=== PATIENT | female | born 1970 | race American Indian/Alaskan Native ===

== ENCOUNTER 2021-12-17 18:06 | Inpatient (IN) | payer MEDICARE ==
[2021-12-17] MEDS ORDERED: ONDANSETRON 4 MG/2 ML INJ IV ONE (18:48)
[2021-12-17] MEDS ORDERED: SODIUM CHLORIDE 0.9% 1000 ML 1,000 ML IV ONE ×3 (18:48→20:13)
[2021-12-17] MEDS ORDERED: fentaNYL 100 MCG/2 ML INJ IV ONE (18:48)
--- NOTE | 2021-12-17 18:53 | Emergency Department Report ---
HPI - General Chief Complaint: Abdominal Pain Time Seen by Provider: 12/17/21 18:40 - HPI HPI: Room 19 The patient is a 51-year-old female present with chief complaint of abdominal pain. Patient states she has had intermittent cramping abdominal pain for the past 4 days. Patient admits to intractable nausea vomiting since yesterday. Patient describes the pain as cramping and intermittent in nature. Patient states she has not had a bowel movement in 2 months. The patient is a resident at [facility] and a KUB performed at that facility today that was read as "probable partial small bowel obstruction. CT recommended." ED Past Medical Hx - Past Medical History Hx Hypertension: Yes Hx CVA: Yes (Residual right-sided weakness) Hx Congestive Heart Failure: Yes Hx Diabetes: Yes Hx Renal Disease: Yes Hx Seizures: Yes Hx Psychiatric Treatment: Yes (Anxiety) - Surgical History Past Surgical History?: No - Family History Family history: no significant - Social History Smoking Status: Never Smoker Substance Use Type: None ED Review of Systems ROS: Stated complaint: BOWEL BLOCKAGE Other details as noted in HPI Constitutional: no symptoms reported Eyes: denies: eye pain ENT: denies: throat pain Respiratory: no symptoms reported Cardiovascular: denies: chest pain Endocrine: no symptoms reported Gastrointestinal: abdominal pain, nausea, vomiting Genitourinary: denies: dysuria Musculoskeletal: denies: back pain Neurological: denies: headache Physical Exam - Physical Exam Vital Signs: Vital Signs 12/17/21 18:13 Pulse Rate 115 H Respiratory 20 Rate Blood Pressure 100/60 [Left] O2 Sat by Pulse 98 Oximetry Physical Exam: GENERAL: The patient is well-developed well-nourished female lying on stretcher not appearing to be in acute distress. [] HEENT: Normocephalic. Atraumatic. Extraocular motions are intact. Patient has moist mucous membranes. NECK: Supple. Trachea midline CHEST/LUNGS: Clear to auscultation. There is no respiratory distress noted. HEART/CARDIOVASCULAR: Regular. There is no tachycardia. There is no gallop rub or murmur. ABDOMEN: Abdomen is soft, with mild discomfort to palpation in the left upper quadrant left lower quadrant. There is no rebound or guarding. Patient has normal bowel sounds. There is no abdominal distention. SKIN: There is no rash. There is no edema. There is no diaphoresis. NEURO: The patient is awake, alert, and oriented. The patient is cooperative. The patient has residual right hemiparesis from previous CVA. The patient has normal speech. GCS 15 MUSCULOSKELETAL: There is no evidence of acute injury. ED Course Vital Signs 12/17/21 18:13 Pulse Rate 115 H Respiratory 20 Rate Blood Pressure 100/60 [Left] O2 Sat by Pulse 98 Oximetry - Consultations Consultation #1: 12/17/21 20:03 Surgery paged 12/17/21 20:14 Case discussed with surgeon Dr. Robertson-recommends initiating normal saline at 100 ml/hr after initial bolus. Will consult ED Medical Decision Making - Lab Data Result diagrams: 12/17/21 18:55 12/17/21 18:55 - Radiology Data Radiology results: report reviewed (CT abdomen pelvis), image reviewed (CT abdomen pelvis) [facility] [address] [place] [address] Cat Scan Report Signed Patient: MANOJ KHOURY MR#: [id number] : 1970 Acct:[id number] Age/Sex: 51 / F ADM Date: 12/17/21 Loc: ED Attending Dr: Ordering Physician: RAVI BERG MD Date of Service: 12/17/21 Procedure(s): CT abdomen pelvis wo con Accession Number(s): [id number] cc: RAVI BERG MD CT ABDOMEN AND PELVIS WITHOUT CONTRAST INDICATION / CLINICAL INFORMATION: Left abd pain,n/v. KUB concerning for pSBO. TECHNIQUE: Axial CT images were obtained through the abdomen and pelvis without IV contrast. All CT scans at this location are performed using CT dose reduction for ALARA by means of automated exposure control. COMPARISON: None available. FINDINGS: LOWER CHEST: There is dependent bilateral atelectasis. Heart size is normal with a small pericardial effusion. No other acute findings. LIVER: No significant abnormality. GALLBLADDER: There is cholelithiasis without evidence of acute cholecystitis. BILE DUCTS: No significant abnormality. PANCREAS: No significant abnormality. SPLEEN: No significant abnormality. ADRENALS: No significant abnormality. RIGHT KIDNEY/URETER: No significant abnormality. LEFT KIDNEY/URETER: No significant abnormality. STOMACH/SMALL BOWEL: The stomach is markedly distended by air and fluid. There is moderate small bowel dilatation with a transition point seen just the right of midline along the lower abdomen. COLON: No significant abnormality. APPENDIX: Not seen. PERITONEUM: No free fluid. No free air. No fluid collection. LYMPH NODES: No significant adenopathy. VASCULATURE: There is mild generalized atherosclerosis. No other significant abnormality. URINARY BLADDER: Moderate bladder wall thickening is likely due to underdistention. No other significant abnormality. REPRODUCTIVE ORGANS: No significant abnormality. ADDITIONAL FINDINGS: None. BONES: No acute findings. The bones are demineralized with moderate degenerative changes of the spine. There is an old fracture of the intertrochanteric region of the left femur. IMPRESSION: 1. Evidence of a small bowel obstruction without other acute findings. 2. Additional findings as above. Signer Name: Jon Boles MD Signed: 12/17/2021 7:43 PM Workstation Name: [id number] Transcribed By: ERIK Dictated By: Jon Boles MD Electronically Authenticated By: Jon Boles MD Signed Date/Time: 12/17/211942 DD/ 37 TD/TT: - Differential Diagnosis Partial small bowel obstruction, gastritis, UTI, renal colic, ileus Critical care attestation.: If time is entered above; I have spent that time in minutes in the direct care of this critically ill patient, excluding procedure time. ED Disposition Clinical Impression: Small bowel obstruction, Acute abdominal pain Disposition: ADMITTED INPATIENT Is pt being admited?: Yes Does the pt Need Aspirin: No Condition: Fair Instructions: Abdominal Pain (ED) Time of Disposition: 21:43 (Care transferred to hospitalist (Dr. Isabel))
[2021-12-17 19:11] LABS: Basophils % (Auto) 0.2 % (0.0-1.8); Eosinophils % (Auto) 0.3 % (0.0-4.3); Hematocrit 35.4 % (30.3-42.9); Hemoglobin 11.6 gm/dl (10.1-14.3); Lymphocytes # (Auto) 0.9 K/mm3 (1.2-5.4); Lymphocytes % (Auto) 9.1 % (13.4-35.0); Mean Corpuscular HGB Conc 33 % (30-34); Mean Corpuscular Volume 72 fl (79-97); Monocytes # (Auto) 1.2 K/mm3 (0.0-0.8); Platelet Count 317 K/mm3 (140-440); Red Blood Count 4.92 M/mm3 (3.65-5.03); Red Cell Distribution Width 16.6 % (13.2-15.2)
[2021-12-17 19:31] LABS: Albumin 3.4 g/dL (3.9-5); Calcium 8.2 mg/dL (8.4-10.2)
--- NOTE | 2021-12-17 19:47 | Cat Scan Report ---
CT ABDOMEN AND PELVIS WITHOUT CONTRAST INDICATION / CLINICAL INFORMATION: Left abd pain,n/v. KUB concerning for pSBO. TECHNIQUE: Axial CT images were obtained through the abdomen and pelvis without IV contrast. All CT scans at [facility] are performed using CT dose reduction for ALARA by means of automated exposure control. COMPARISON: None available. FINDINGS: LOWER CHEST: There is dependent bilateral atelectasis. Heart size is normal with a small pericardial effusion. No other acute findings. LIVER: No significant abnormality. GALLBLADDER: There is cholelithiasis without evidence of acute cholecystitis. BILE DUCTS: No significant abnormality. PANCREAS: No significant abnormality. SPLEEN: No significant abnormality. ADRENALS: No significant abnormality. RIGHT KIDNEY/URETER: No significant abnormality. LEFT KIDNEY/URETER: No significant abnormality. STOMACH/SMALL BOWEL: The stomach is markedly distended by air and fluid. There is moderate small bhupinder l dilatation with a transition point seen just the right of midline along the lower abdomen. COLON: No significant abnormality. APPENDIX: Not seen. PERITONEUM: No free fluid. No free air. No fluid collection. LYMPH NODES: No significant adenopathy. VASCULATURE: There is mild generalized atherosclerosis. No other significant abnormality. URINARY BLADDER: Moderate bladder wall thickening is likely due to underdistention. No other signific ant abnormality. REPRODUCTIVE ORGANS: No significant abnormality. ADDITIONAL FINDINGS: None. BONES: No acute findings. The bones are demineralized with moderate degenerative changes of the spine . There is an old fracture of the intertrochanteric region of the left femur. IMPRESSION: 1. Evidence of a small bowel obstruction without other acute findings. 2. Additional findings as above. Signer Name: Jon Boles MD Signed: 12/17/2021 7:43 PM Workstation Name: [id number]
[2021-12-17] MEDS ORDERED: MORPHINE 2 MG/1 ML INJ IV PRN ×2 (21:41→23:23)
[2021-12-17] MEDS ORDERED: ACETAMINOPHEN 325 MG TAB PO PRN ×2 (21:41→23:23)
[2021-12-17] MEDS ORDERED: ONDANSETRON 4 MG/2 ML INJ IV PRN ×2 (21:41→23:23)
--- NOTE | 2021-12-17 21:57 | XRay Report ---
ABDOMEN 1 VIEW 12/17/2021 8:46 PM INDICATION / CLINICAL INFORMATION: NG TUBE PLACEMENT. COMPARISON: CT performed earlier same day FINDINGS: TUBES / LINES: Esophogastric tube side-port is in the stomach. BOWEL GAS PATTERN: Multiple dilated loops of small bowel in the upper abdomen. FREE AIR / EXTRALUMINAL GAS: None. ADDITIONAL FINDINGS: No significant additional findings. IMPRESSION: 1. Esophagogastric tube in expected position. 2. Small bowel obstruction. Signer Name: Chi Esqueda MD Signed: 12/17/2021 9:52 PM Workstation Name: [email or web address]
[2021-12-17 22:45] LABS: Color,Urine Yellow (Yellow)
[2021-12-17 22:46] LABS: Bacteria,Urine 4+ /HPF (Negative); Mucus,Urine FEW /HPF
[2021-12-17 22:52] LABS: WBC,Urine < 1.0 /HPF (0.0-6.0)
[2021-12-17] MEDS ORDERED: MORPHINE 4 MG/1 ML INJ IV PRN (23:23)
[2021-12-17] MEDS ORDERED: ALBUTEROL 2.5 MG/3 ML NEBU IH PRN (23:23)
[2021-12-17] MEDS ORDERED: DEXTROSE 50% IN WATER (25GM) 50 ML SYRINGE IV PRN (23:24)
--- NOTE | 2021-12-17 23:29 | History and Physical Report ---
History of Present Illness Date of examination: 12/17/21 Date of admission: 12/17/21 21:41 Chief complaint: Abdominal pain History of present illness: 51-year-old female with history of CVA, diabetes, CHF, hypertension, seizure was brought to the emergency room because of abdominal pain. Patient states she has had intermittent cramping abdominal pain for the past 4 days. Patient admits to intractable nausea vomiting since yesterday. Patient describes the pain as cramping and intermittent in nature. Patient states she has not had a bowel movement in 2 months. The patient is a resident at [facility] and a KUB performed at that facility today that was read as "probable partial small bowel obstruction. CT recommended." In the emergency room initial CT scan of the abdomen shows evidence of a small bowel obstruction without other acute finding. Subsequently Case was discussed with on-call surgeon Dr. Jamison. we will going to admit the patient surgery will see the patient in the morning Past History Past Medical History: diabetes, heart failure, hypertension, renal failure, seizures, stroke, other (Anxiety) Past Surgical History: No surgical history Social history: no significant social history Family history: no significant family history Medications and Allergies Allergies Allergy/AdvReac Type Severity Reaction Status Date / Time clopidogrel [From Plavix] Allergy Unknown Verified 12/17/21 19:47 lisinopril Allergy Unknown Verified 12/17/21 19:47 metformin Allergy Unknown Verified 12/17/21 19:47 Active Meds: Active Medications Acetaminophen (Acetaminophen 325 Mg Tab) 650 mg PO Q4H PRN PRN Reason: Pain MILD(1-3)/Fever >100.5/HOLMAN Sodium Chloride (Nacl 0.9% 1000 Ml) 1,000 mls @ 125 mls/hr IV ONCE ONE Stop: 12/18/21 02:47 Last Admin: 12/17/21 22:07 Dose: 125 mls/hr Sodium Chloride (Nacl 0.9% 1000 Ml) 1,000 mls @ 100 mls/hr IV ONCE ONE Stop: 12/18/21 06:12 Morphine Sulfate (Morphine 2 Mg/1 Ml Inj) 2 mg IV Q4H PRN PRN Reason: Pain, Moderate (4-6) Ondansetron HCl (Ondansetron 4 Mg/2 Ml Inj) 4 mg IV Q8H PRN PRN Reason: Nausea And Vomiting Sodium Chloride (Sodium Chloride 0.9% 10 Ml Flush Syringe) 10 ml IV BID SHANNON Sodium Chloride (Sodium Chloride 0.9% 10 Ml Flush Syringe) 10 ml IV PRN PRN PRN Reason: LINE FLUSH Review of Systems All systems: negative Gastrointestinal: abdominal pain, nausea, vomiting Exam - Constitutional Vitals: Temp Pulse Resp BP Pulse Ox 98.3 F 131 H 23 99/68 88 12/17/21 19:37 12/17/21 23:00 12/17/21 23:00 12/17/21 23:00 12/17/21 23:00 General appearance: Present: no acute distress, well-nourished - EENT Eyes: Present: PERRL ENT: hearing intact, clear oral mucosa - Neck Neck: Present: supple, normal ROM - Respiratory Respiratory effort: normal Respiratory: bilateral: CTA - Cardiovascular Heart Sounds: Present: S1 & S2. Absent: rub, click - Extremities Extremities: pulses symmetrical, No edema Peripheral Pulses: within normal limits - Abdominal General gastrointestinal: Present: soft, non-tender, non-distended, normal bowel sounds Female genitourinary: Present: normal - Integumentary Integumentary: Present: clear, warm, dry - Musculoskeletal Musculoskeletal: gait normal, strength equal bilaterally - Psychiatric Psychiatric: appropriate mood/affect, intact judgment & insight - Neurologic Neurologic: CNII-XII intact, moves all extremities Results - Labs CBC & Chem 7: 12/17/21 18:55 12/17/21 18:55 Labs: Laboratory Last Values WBC 9.7 K/mm3 (4.5-11.0) 12/17/21 18:55 RBC 4.92 M/mm3 (3.65-5.03) 12/17/21 18:55 Hgb 11.6 gm/dl (10.1-14.3) 12/17/21 18:55 Hct 35.4 % (30.3-42.9) 12/17/21 18:55 MCV 72 fl (79-97) L 12/17/21 18:55 MCH 24 pg (28-32) L 12/17/21 18:55 MCHC 33 % (30-34) 12/17/21 18:55 RDW 16.6 % (13.2-15.2) H 12/17/21 18:55 Plt Count 317 K/mm3 (140-440) 12/17/21 18:55 Lymph % (Auto) 9.1 % (13.4-35.0) L 12/17/21 18:55 Jenkins % (Auto) 12.0 % (0.0-7.3) H 12/17/21 18:55 Eos % (Auto) 0.3 % (0.0-4.3) 12/17/21 18:55 Baso % (Auto) 0.2 % (0.0-1.8) 12/17/21 18:55 Lymph # (Auto) 0.9 K/mm3 (1.2-5.4) L 12/17/21 18:55 Jenkins # (Auto) 1.2 K/mm3 (0.0-0.8) H 12/17/21 18:55 Eos # (Auto) 0.0 K/mm3 (0.0-0.4) 12/17/21 18:55 Baso # (Auto) 0.0 K/mm3 (0.0-0.1) 12/17/21 18:55 Seg Neutrophils % 78.4 % (40.0-70.0) H 12/17/21 18:55 Seg Neutrophils # 7.6 K/mm3 (1.8-7.7) 12/17/21 18:55 VBG pH 7.309 (7.320-7.420) L 12/17/21 18:55 Sodium 141 mmol/L (137-145) 12/17/21 18:55 Potassium 3.6 mmol/L (3.6-5.0) 12/17/21 18:55 Chloride 99.4 mmol/L (98-107) 12/17/21 18:55 Carbon Dioxide 24 mmol/L (22-30) 12/17/21 18:55 Anion Gap 21 mmol/L 12/17/21 18:55 BUN 37 mg/dL (7-17) H 12/17/21 18:55 Creatinine 1.6 mg/dL (0.6-1.2) H 12/17/21 18:55 Estimated GFR 34 ml/min 12/17/21 18:55 BUN/Creatinine Ratio 23 % 12/17/21 18:55 Glucose 113 mg/dL (65-100) H 12/17/21 18:55 Calcium 8.2 mg/dL (8.4-10.2) L 12/17/21 18:55 Total Bilirubin 0.90 mg/dL (0.1-1.2) 12/17/21 18:55 AST 18 units/L (5-40) 12/17/21 18:55 ALT 12 units/L (7-56) 12/17/21 18:55 Alkaline Phosphatase 124 units/L (35-129) 12/17/21 18:55 Total Protein 6.2 g/dL (6.3-8.2) L 12/17/21 18:55 Albumin 3.4 g/dL (3.9-5) L 12/17/21 18:55 Albumin/Globulin Ratio 1.2 % 12/17/21 18:55 Lipase 7 units/L (13-60) L 12/17/21 18:55 Urine Color Yellow (Yellow) 12/17/21 22:12 Urine Turbidity Cloudy (Clear) 12/17/21 22:12 Specific [place] (Man) 1.030 (1.003-1.030) 12/17/21 22:12 Ur Protein (Man) 2+ mg/dL (Negative) 12/17/21 22:12 Ur Ketones (Man) Negative (Negative) 12/17/21 22:12 Ur Nitrite (Man) Negative (Negative) 12/17/21 22:12 Urine Bilirubin (Man) Negative (Negative) 12/17/21 22:12 Leukocyte Esterase (Man) Small (Negative) 12/17/21 22:12 Urine WBC (Auto) < 1.0 /HPF (0.0-6.0) 12/17/21 22:12 Urine RBC (Auto) 71.0 /HPF (0.0-6.0) 12/17/21 22:12 U Epithel Cells (Auto) 1.0 /HPF (0-13.0) 12/17/21 22:12 Urine Bacteria (Auto) 4+ /HPF (Negative) 12/17/21 22:12 Urine RBC (Manual) 3+ (Negative) 12/17/21 22:12 Urine WBC Clumps 3+ /HPF 12/17/21 22:12 Urine Mucus Few /HPF 12/17/21 22:12 Urine Yeast (Budding) 3+ /HPF 12/17/21 22:12 - Imaging and Cardiology CT scan - abdomen: report reviewed Assessment and Plan VTE prophylaxis?: Mechanical Plan of care discussed with patient/family: Yes - Patient Problems (1) Small bowel obstruction Current Visit: Yes Status: Acute Plan to address problem: Admit the patient to the medical floor. NPO. NG tube to low intermittent suction. Normal saline at the rate of 100 cc/h. Pepcid 20 mg IV every 12 hours. Morphine 2 mg IV every 6 hours as needed. Surgery evaluation. Recheck CBC BMP in the morning (2) Diabetes Current Visit: Yes Status: Acute Plan to address problem: Accu-Chek every 6 hours with Humalog moderate dose coverage. Diabetic education (3) CVA (cerebral vascular accident) Current Visit: Yes Status: Acute Plan to address problem: Stable. We continue the home medication. Outpatient follow-up with neurology (4) CHF (congestive heart failure) Current Visit: Yes Status: Acute Plan to address problem: Is stable. We continue the home cardiac medication. Outpatient follow-up with cardiology (5) Hypertension Current Visit: Yes Status: Acute Plan to address problem: Hydralazine 10 mg IV every 6 hours as needed. We continue the home medication (6) Seizure Current Visit: Yes Status: Acute Plan to address problem: Stable. Patient is on seizure precaution. We continue home seizure medication (7) Acute abdominal pain Current Visit: Yes Status: Acute Plan to address problem: NPO. NG tube to low intermittent suction. Normal saline at the rate of 100 cc/h. Pepcid 20 mg IV every 12 hours. Morphine 2 mg IV every 6 hours as needed. Surgery evaluation. Recheck CBC BMP in the morning (8) DVT prophylaxis Current Visit: Yes Status: Acute Plan to address problem: SCD for DVT prophylaxis. Pepcid 20 mg IV every 12 hours for GI prophylaxis. Patient is a full code
[2021-12-17] MEDS ORDERED: SODIUM CHLORIDE 0.9% 1000 ML 1,000 ML IV SCH (23:30)
[2021-12-18] MEDS: INSULIN LISPRO 100 UNIT/ML SUB-Q SCH ×4 (02:38→23:43)
[2021-12-18 10:02] LABS: Basophils % (Auto) 0.3 % (0.0-1.8); Eosinophils % (Auto) 0.1 % (0.0-4.3); Hematocrit 33.9 % (30.3-42.9); Hemoglobin 10.6 gm/dl (10.1-14.3); Lymphocytes # (Auto) 0.8 K/mm3 (1.2-5.4); Lymphocytes % (Auto) 6.8 % (13.4-35.0); Mean Corpuscular HGB Conc 31 % (30-34); Mean Corpuscular Volume 72 fl (79-97); Monocytes # (Auto) 1.4 K/mm3 (0.0-0.8); Monocytes % (Auto) 12.3 % (0.0-7.3); Platelet Count 288 K/mm3 (140-440); Red Blood Count 4.69 M/mm3 (3.65-5.03); Red Cell Distribution Width 16.4 % (13.2-15.2)
--- NOTE | 2021-12-18 11:19 | Consultation ---
History of Present Illness Consult date: 12/18/21 - History of present illness History of present illness: 51-year-old female with history of CVA, diabetes, CHF, hypertension, seizure was brought to the emergency room because of abdominal pain. Patient states she has had intermittent cramping abdominal pain for the past 4 days. Patient admits to intractable nausea vomiting since yesterday. Patient describes the pain as cramping and intermittent in nature. Patient states she has not had a bowel movement in 2 months. The patient is a resident at [facility] and a KUB performed at that facility today that was read as "probable partial small bowel obstruction. CT recommended." In the emergency room initial CT scan of the abdomen shows evidence of a small bowel obstruction without other acute finding. Past History Past Medical History: diabetes, heart failure, hypertension, renal failure, seizures, stroke, other (Anxiety) Past Surgical History: No surgical history Social history: no significant social history Family history: no significant family history Medications and Allergies Allergies Allergy/AdvReac Type Severity Reaction Status Date / Time clopidogrel [From Plavix] Allergy Unknown Verified 12/17/21 19:47 lisinopril Allergy Unknown Verified 12/17/21 19:47 metformin Allergy Unknown Verified 12/17/21 19:47 Active Meds: Active Medications Acetaminophen (Acetaminophen 325 Mg Tab) 650 mg PO Q4H PRN PRN Reason: Pain MILD(1-3)/Fever >100.5/HOLMAN Albuterol (Albuterol 2.5 Mg/3 Ml Nebu) 2.5 mg IH Q4HRT PRN PRN Reason: Shortness Of Breath Dextrose (Dextrose 50% In Water (25gm) 50 Ml Syringe) 50 ml IV Q30MIN PRN; Protocol PRN Reason: Hypoglycemia Famotidine (Famotidine 20 Mg/2 Ml Inj) 20 mg IV BID SHANNON Sodium Chloride (Nacl 0.9% 1000 Ml) 1,000 mls @ 100 mls/hr IV DIRECT SHANNON Insulin Human Lispro (Insulin Lispro 100 Unit/Ml) 0 unit SUB-Q Q6HR SHANNON; Protocol Last Admin: 12/18/21 02:38 Dose: Not Given Morphine Sulfate (Morphine 2 Mg/1 Ml Inj) 2 mg IV Q4H PRN PRN Reason: Pain, Moderate (4-6) Morphine Sulfate (Morphine 4 Mg/1 Ml Inj) 4 mg IV Q4H PRN PRN Reason: Pain , Severe (7-10) Ondansetron HCl (Ondansetron 4 Mg/2 Ml Inj) 4 mg IV Q8H PRN PRN Reason: Nausea And Vomiting Sodium Chloride (Sodium Chloride 0.9% 10 Ml Flush Syringe) 10 ml IV BID SHANNON Sodium Chloride (Sodium Chloride 0.9% 10 Ml Flush Syringe) 10 ml IV PRN PRN PRN Reason: LINE FLUSH Last Admin: 12/18/21 02:51 Dose: 10 ml Exam Vital Signs Pulse Resp BP Pulse Ox 115 H 20 100/60 98 12/17/21 18:13 12/17/21 18:13 12/17/21 18:13 12/17/21 18:13 Results - Labs 12/18/21 08:51 12/18/21 08:51 Abnormal lab results 12/17/21 12/17/21 12/17/21 Range/Units 18:55 18:55 18:55 WBC (4.5-11.0) K/mm3 MCV 72 L (79-97) fl MCH 24 L (28-32) pg RDW 16.6 H (13.2-15.2) % Lymph % (Auto) 9.1 L (13.4-35.0) % Coos % (Auto) 12.0 H (0.0-7.3) % Lymph # (Auto) 0.9 L (1.2-5.4) K/mm3 Coos # (Auto) 1.2 H (0.0-0.8) K/mm3 Seg Neutrophils % 78.4 H (40.0-70.0) % Seg Neutrophils # (1.8-7.7) K/mm3 VBG pH 7.309 L (7.320-7.420) BUN 37 H (7-17) mg/dL Creatinine 1.6 H (0.6-1.2) mg/dL Glucose 113 H (65-100) mg/dL POC Glucose (70-105) mg/dL Calcium 8.2 L (8.4-10.2) mg/dL Total Protein 6.2 L (6.3-8.2) g/dL Albumin 3.4 L (3.9-5) g/dL Lipase 7 L (13-60) units/L 12/18/21 12/18/2112/18/22 Range/Units 02:34 08:51 08:51 WBC 11.1 H (4.5-11.0) K/mm3 MCV 72 L (79-97) fl MCH 23 L (28-32) pg RDW 16.4 H (13.2-15.2) % Lymph % (Auto) 6.8 L (13.4-35.0) % Coos % (Auto) 12.3 H (0.0-7.3) % Lymph # (Auto) 0.8 L (1.2-5.4) K/mm3 Coos # (Auto) 1.4 H (0.0-0.8) K/mm3 Seg Neutrophils % 80.5 H (40.0-70.0) % Seg Neutrophils # 8.9 H (1.8-7.7) K/mm3 VBG pH (7.320-7.420) BUN 42 H (7-17) mg/dL Creatinine 1.5 H (0.6-1.2) mg/dL Glucose 101 H (65-100) mg/dL POC Glucose 131 H (70-105) mg/dL Calcium 8.0 L (8.4-10.2) mg/dL Total Protein (6.3-8.2) g/dL Albumin (3.9-5) g/dL Lipase (13-60) units/L Diabetes panel 12/17/21 12/18/21 Range/Units 18:55 08:51 Sodium 141 145 (137-145) mmol/L Potassium 3.6 3.8 (3.6-5.0) mmol/L Chloride 99.4 100.7 (98-107) mmol/L Carbon Dioxide 24 25 (22-30) mmol/L BUN 37 H 42 H (7-17) mg/dL Creatinine 1.6 H 1.5 H (0.6-1.2) mg/dL Glucose 113 H 101 H (65-100) mg/dL Calcium 8.2 L 8.0 L (8.4-10.2) mg/dL AST 18 (5-40) units/L ALT 12 (7-56) units/L Alkaline Phosphatase 124 (35-129) units/L Total Protein 6.2 L (6.3-8.2) g/dL Albumin 3.4 L (3.9-5) g/dL Calcium panel 12/17/21 12/18/21 Range/Units 18:55 08:51 Calcium 8.2 L 8.0 L (8.4-10.2) mg/dL Albumin 3.4 L (3.9-5) g/dL Pituitary panel 12/17/21 12/18/21 Range/Units 18:55 08:51 Sodium 141 145 (137-145) mmol/L Potassium 3.6 3.8 (3.6-5.0) mmol/L Chloride 99.4 100.7 (98-107) mmol/L Carbon Dioxide 24 25 (22-30) mmol/L BUN 37 H 42 H (7-17) mg/dL Creatinine 1.6 H 1.5 H (0.6-1.2) mg/dL Glucose 113 H 101 H (65-100) mg/dL Calcium 8.2 L 8.0 L (8.4-10.2) mg/dL Adrenal panel 12/17/21 12/18/21 Range/Units 18:55 08:51 Sodium 141 145 (137-145) mmol/L Potassium 3.6 3.8 (3.6-5.0) mmol/L Chloride 99.4 100.7 (98-107) mmol/L Carbon Dioxide 24 25 (22-30) mmol/L BUN 37 H 42 H (7-17) mg/dL Creatinine 1.6 H 1.5 H (0.6-1.2) mg/dL Glucose 113 H 101 H (65-100) mg/dL Calcium 8.2 L 8.0 L (8.4-10.2) mg/dL Total Bilirubin 0.90 (0.1-1.2) mg/dL AST 18 (5-40) units/L ALT 12 (7-56) units/L Alkaline Phosphatase 124 (35-129) units/L Total Protein 6.2 L (6.3-8.2) g/dL Albumin 3.4 L (3.9-5) g/dL Assessment and Plan 51-year-old female with history of CVA, diabetes, CHF, hypertension, seizure was brought to the emergency room because of abdominal pain. Patient states she has had intermittent cramping abdominal pain for the past 4 days. Patient admits to intractable nausea vomiting since yesterday. Patient describes the pain as cramping and intermittent in nature. Patient states she has not had a bowel movement in 2 months. The patient is a resident at [facility] and a KUB performed at that facility today that was read as "probable partial small bowel obstruction. CT recommended." In the emergency room initial CT scan of the abdomen shows evidence of a small bowel obstruction without other acute finding. Cont ng suctin, ivf and serial exams.
[2021-12-18] MEDS: FAMOTIDINE 20 MG/2 ML INJ IV SCH ×2 (12:05→23:07)
--- NOTE | 2021-12-18 19:26 | Progress Note ---
Assessment and Plan Assessment and plan: #Small bowel obstruction Visualized on CT abdomen and pelvis without acute findings. Continue n.p.o. status with NG tube + LIWS. Continue serial KUBs. General surgery consulted; appreciate recs. Continue antiemetics and analgesics as needed. #Non-insulin dependent type II diabetes mellitus - hemoglobin A1c: Unknown - home regimen: Unknown - current regimen: Moderate SSI - blood glucose goal 140-180 while inpatient - continue to monitor #Hypertension #Congestive heart failurestable - home medications: Unknown - current medications: Currently normotensive. Can consider IV Lopressor if patient requires blood pressure control while remaining n.p.o. - SBP goal <160 and DBP goal <90 while inpatient - continue to monitor #History of multiple acute ischemic CVA We will restart aspirin 81 mg daily and atorvastatin 40 mg daily once patient can tolerate p.o. intake. #Seizure history Continue seizure precautions. No current seizure medication in the chart. Starting IV Keppra 500 mg twice daily #Mild protein caloric malnutrition Albumin 3.4 Holding on starting dietary supplementation until patient can tolerate p.o. intake. #Obesity #Weight loss counseling #Exercise counseling - BMI 30.6 - Counseled patient on the importance of weight loss, incorporating exercise, and dietary changes (lean meats, fresh fruits and vegetables, and water intake). Patient expresses understanding. - Time: +15 min #Advanced care planning -Disease education conducted, care plan discussed, diagnoses discussed, prognosis discussed, and patient acknowledges understanding with care plan -Time: +30 min Disposition Plan: Continue medical management Total Time Spent with Patient (Minutes): 45 minutes History Interval history: No acute events overnight. Hospitalist Physical - Constitutional Vitals: Temp Pulse Resp BP Pulse Ox 98.2 F 44 L 18 117/78 85 12/18/21 16:41 12/18/21 16:41 12/18/21 16:41 12/18/21 16:41 12/18/21 16:41 General appearance: Present: no acute distress, well-nourished, obese - EENT Eyes: Present: PERRL, EOM intact ENT: hearing intact, clear oral mucosa, dentition normal, other (NG tube in place draining greenish fluid) - Neck Neck: Present: supple, normal ROM - Respiratory Respiratory effort: normal Respiratory: bilateral: CTA - Cardiovascular Rhythm: regular Heart Sounds: Present: S1 & S2 - Extremities Extremities: no ischemia, pulses intact, pulses symmetrical, No edema, normal temperature, normal color Peripheral Pulses: within normal limits - Abdominal General gastrointestinal: soft, tender, non-distended, normal bowel sounds Localized gastrointestinal: tender: diffuse - Integumentary Integumentary: Present: clear, warm, dry - Psychiatric Psychiatric: other (Unable to fully assess given patient's significant stroke history) - Neurologic Neurologic: focal deficits (Right-sided weakness) - Allied Health Allied health notes reviewed: nursing Results - Labs CBC & Chem 7: 12/18/21 08:51 12/18/21 08:51 Labs: Laboratory Last Values WBC 11.1 K/mm3 (4.5-11.0) H 12/18/21 08:51 RBC 4.69 M/mm3 (3.65-5.03) 12/18/21 08:51 Hgb 10.6 gm/dl (10.1-14.3) 12/18/21 08:51 Hct 33.9 % (30.3-42.9) 12/18/21 08:51 MCV 72 fl (79-97) L 12/18/21 08:51 MCH 23 pg (28-32) L 12/18/21 08:51 MCHC 31 % (30-34) 12/18/21 08:51 RDW 16.4 % (13.2-15.2) H 12/18/21 08:51 Plt Count 288 K/mm3 (140-440) 12/18/21 08:51 Lymph % (Auto) 6.8 % (13.4-35.0) L 12/18/21 08:51 [place] % (Auto) 12.3 % (0.0-7.3) H 12/18/21 08:51 Eos % (Auto) 0.1 % (0.0-4.3) 12/18/21 08:51 Baso % (Auto) 0.3 % (0.0-1.8) 12/18/21 08:51 Lymph # (Auto) 0.8 K/mm3 (1.2-5.4) L 12/18/21 08:51 [place] # (Auto) 1.4 K/mm3 (0.0-0.8) H 12/18/21 08:51 Eos # (Auto) 0.0 K/mm3 (0.0-0.4) 12/18/21 08:51 Baso # (Auto) 0.0 K/mm3 (0.0-0.1) 12/18/21 08:51 Seg Neutrophils % 80.5 % (40.0-70.0) H 12/18/21 08:51 Seg Neutrophils # 8.9 K/mm3 (1.8-7.7) H 12/18/21 08:51 VBG pH 7.309 (7.320-7.420) L 12/17/21 18:55 Sodium 145 mmol/L (137-145) 12/18/21 08:51 Potassium 3.8 mmol/L (3.6-5.0) 12/18/21 08:51 Chloride 100.7 mmol/L (98-107) 12/18/21 08:51 Carbon Dioxide 25 mmol/L (22-30) 12/18/21 08:51 Anion Gap 23 mmol/L 12/18/21 08:51 BUN 42 mg/dL (7-17) H 12/18/21 08:51 Creatinine 1.5 mg/dL (0.6-1.2) H 12/18/21 08:51 Estimated GFR 44 ml/min 12/18/21 08:51 BUN/Creatinine Ratio 28 % 12/18/21 08:51 Glucose 101 mg/dL (65-100) H 12/18/21 08:51 POC Glucose 106 mg/dL (70-105) H 12/18/21 11:18 Calcium 8.0 mg/dL (8.4-10.2) L 12/18/21 08:51 Total Bilirubin 0.90 mg/dL (0.1-1.2) 12/17/21 18:55 AST 18 units/L (5-40) 12/17/21 18:55 ALT 12 units/L (7-56) 12/17/21 18:55 Alkaline Phosphatase 124 units/L (35-129) 12/17/21 18:55 Total Protein 6.2 g/dL (6.3-8.2) L 12/17/21 18:55 Albumin 3.4 g/dL (3.9-5) L 12/17/21 18:55 Albumin/Globulin Ratio 1.2 % 12/17/21 18:55 Lipase 7 units/L (13-60) L 12/17/21 18:55 Urine Color Yellow (Yellow) 12/17/21 22:12 Urine Turbidity Cloudy (Clear) 12/17/21 22:12 Specific [place] (Man) 1.030 (1.003-1.030) 12/17/21 22:12 Ur Protein (Man) 2+ mg/dL (Negative) 12/17/21 22:12 Ur Ketones (Man) Negative (Negative) 12/17/21 22:12 Ur Nitrite (Man) Negative (Negative) 12/17/21 22:12 Urine Bilirubin (Man) Negative (Negative) 12/17/21 22:12 Leukocyte Esterase (Man) Small (Negative) 12/17/21 22:12 Urine WBC (Auto) < 1.0 /HPF (0.0-6.0) 12/17/21 22:12 Urine RBC (Auto) 71.0 /HPF (0.0-6.0) 12/17/21 22:12 U Epithel Cells (Auto) 1.0 /HPF (0-13.0) 12/17/21 22:12 Urine Bacteria (Auto) 4+ /HPF (Negative) 12/17/21 22:12 Urine RBC (Manual) 3+ (Negative) 12/17/21 22:12 Urine WBC Clumps 3+ /HPF 12/17/21 22:12 Urine Mucus Few /HPF 12/17/21 22:12 Urine Yeast (Budding) 3+ /HPF 12/17/21 22:12 Active Medications - Current Medications Current Medications: Generic Name Dose Route Start Last Admin Trade Name Freq PRN Reason Stop Dose Admin Acetaminophen 650 mg 12/17/21 23:23 Acetaminophen 325 Mg Tab PO Q4H PRN Pain MILD(1-3)/Fever >100.5/HOLMAN Albuterol 2.5 mg 12/17/21 23:23 Albuterol 2.5 Mg/3 Ml Nebu IH Q4HRT PRN Shortness Of Breath Dextrose 50 ml 12/17/21 23:24 Dextrose 50% In Water (25gm) 50 Ml Syringe IV Q30MIN PRN Hypoglycemia Protocol Famotidine 20 mg 12/18/21 10:00 12/18/21 12:05 Famotidine 20 Mg/2 Ml Inj IV 20 mg BID SHANNON Administration Insulin Human Lispro 0 unit 12/18/21 00:00 12/18/21 18:48 Insulin Lispro 100 Unit/Ml SUB-Q Not Given Q6HR [facility] Protocol Morphine Sulfate 2 mg 12/17/21 23:23 Morphine 2 Mg/1 Ml Inj IV Q4H PRN Pain, Moderate (4-6) Morphine Sulfate 4 mg 12/17/21 23:23 Morphine 4 Mg/1 Ml Inj IV Q4H PRN Pain , Severe (7-10) Ondansetron HCl 4 mg 12/17/21 23:23 Ondansetron 4 Mg/2 Ml Inj IV Q8H PRN Nausea And Vomiting Sodium Chloride 10 ml 12/18/21 10:00 12/18/21 12:05 Sodium Chloride 0.9% 10 Ml Flush Syringe IV 10 ml BID SHANNON Administration Sodium Chloride 10 ml 12/17/21 23:23 12/18/21 02:51 Sodium Chloride 0.9% 10 Ml Flush Syringe IV 10 ml PRN PRN Administration LINE FLUSH Nutrition/Malnutrition Assess - Dietary Evaluation Nutrition/Malnutrition Findings: Nutrition Notes Start: 12/18/21 12:33 Freq: Status: Active Protocol: Document 12/18/21 12:33 JOS (Rec: 12/18/21 12:40 [facility] [id number]) Nutrition Notes Need for Assessment generated from: MD Order,spoon maker,MST, Education Initial or Follow up Assessment Current Diagnosis Diabetes,Hypertension,Heart Failure,Small Bowel Obstruction,Stroke Other Pertinent Diagnosis Abdominal pain, N/V Current Diet NPO Labs/Tests BUN 42 Cr 1.5 Pertinent Medications NS at 100ml/hr Height 5 ft 5 in Weight 83.5 kg Usual Body Weight 160 kg [place] Body Weight (kg) 56.81 BMI 30.6 Intake Prior to Admission Fair Weight change and time frame Current wt obtained from bed scale. Pt's daughter says pt' s height is actually ~65-66 inches. She says pt weighed ~ 300# (no time frame given), but has been losing weight since being in the [place]. Weight Status Obese Subjective/Other Information RD consulted for diet education; pt not appropriate for diet education. Pt also screened for malnutrition and skin risks (Efren score: 6). Pt is from a NH. CT scan of abdomen revealed evidence of SBO. NGT placed to LIS. Spoke with pt's daughter during visit today. She says pt has not had a BM in ~ 2 wks . Last PO intake was this past Tuesday. Nutrition- focused physical exam revealed muscle wasting at temples and clavicles. Pt requires assistance during meal times. Burn Absent Trauma Absent GI Symptoms Nausea,Vomiting Minimum of two criteria No Muscle Mass Mild Depletion (non-severe) #1 Nutrition Diagnosis Altered GI function Etiology SBO As Evidenced by Signs and Symptoms pt NPO Is patient on ventilator? No Is Patient Ambulatory and/or Out of Bed No REE-([facility]-confined to bed) 3059.040 Calculation Used for Recommendations [facility] Additional Notes Pro needs 1-1.2g/kg adjBW: 70- 84g/day Fluid needs 1ml/kcal Nutrition Intervention Change Diet Order: Advance diet when medically feasible Goal #1 Diet advancement to meet nutrient needs Anticipated Discharge Needs: Unable to identify at this time Follow-Up By: 12/21/21 Additional Comments F/U: diet advancement
[2021-12-18] MEDS: levETIRAcetam 500 MG in DEXTROSE 5% IN WATER 100 ML IV SCH (23:08)
[2021-12-18] MEDS: DEXTROSE 5% IN WATER 1,000 ML IV SCH (23:10)
[2021-12-19] MEDS: INSULIN LISPRO 100 UNIT/ML SUB-Q SCH ×4 (06:06→17:13)
[2021-12-19 06:43] LABS: Blood Urea Nitrogen 40 mg/dL (7-17); Calcium 7.6 mg/dL (8.4-10.2); Hemolysis Index 15
[2021-12-19 06:55] LABS: BUN/Creatinine Ratio 57
[2021-12-19] MEDS ORDERED: CALCIUM GLUCONATE 1,000 MG in SODIUM CHLORIDE 0.9% 100 ML IV ONE (07:13)
--- NOTE | 2021-12-19 07:49 | XRay Report ---
ABDOMEN 1 VIEW 12/19/2021 7:17 AM INDICATION / CLINICAL INFORMATION: Evaluate small bowel obstruction. COMPARISON: 12/17/2021 FINDINGS: TUBES / LINES: Satisfactory nasogastric tube position within the stomach. BOWEL GAS PATTERN: Improved small bowel dilation most consistent with an improving small bowel obstru ction. FREE AIR / EXTRALUMINAL GAS: None. ADDITIONAL FINDINGS: No significant additional findings. IMPRESSION: 1. Improved small bowel dilation most consistent with an improving small bowel obstruction. 2. Satisfactory nasogastric tube position. Signer Name: Bladimir Mcmahon MD Signed: 12/19/2021 7:45 AM Workstation Name: [id number]
[2021-12-19] MEDS ORDERED: CALC GLUCONATE 1GM/NS 100 ML 1 GM/100 ML BAG IV ONE (09:00)
[2021-12-19] MEDS: POTASSIUM CHLORIDE 10 MEQ 10 MEQ/100 ML BAG IV SCH ×4 (09:54→17:15)
[2021-12-19] MEDS: FAMOTIDINE 20 MG/2 ML INJ IV SCH ×2 (09:54→21:11)
[2021-12-19] MEDS: levETIRAcetam 500 MG in DEXTROSE 5% IN WATER 100 ML IV SCH ×2 (10:31→21:10)
[2021-12-19] MEDS: DEXTROSE 5% IN WATER 1,000 ML IV SCH (10:32)
--- NOTE | 2021-12-19 11:02 | Progress Note ---
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 She is showing no acute findings suggestive of bowel perforation or ischemia. Patient is afebrile and stable doing well with NG tube decompression. Because patient is nonverbal will be difficult to assess progress by asking her subjective symptoms such as pain or flatus. We will closely track NG tube output. If NG tube output continues to be low by tomorrow, will do clamping trials and see how she does. Will also get abdominal x-ray in the morning. Subjective Date of service: 12/19/21 Narrative: No acute events overnight. Patient is nonverbal but is not appear to be in any significant discomfort. Report says that there has been minimal output from her NG tube since yesterday. Objective Vital Signs - 12hr 12/18/21 12/19/21 12/19/21 23:00 00:11 05:19 Temperature 97.7 F Pulse Rate 108 H Respiratory 18 Rate Blood Pressure 122/77 O2 Sat by Pulse 100 97 99 Oximetry - General physical appearance well developed, well nourished, no pain - Respiratory normal expansion, normal respiratory effort - Abdomen soft, not tender, not distended, other (NG tube with minimal bilious output, over 2 L recorded yesterday) - Labs 12/18/21 08:51 12/19/21 06:02 Diabetes panel 12/19/21 Range/Units 06:02 Sodium 146 H (137-145) mmol/L Potassium 3.5 L (3.6-5.0) mmol/L Chloride 106.4 (98-107) mmol/L Carbon Dioxide 25 (22-30) mmol/L BUN 40 H (7-17) mg/dL Creatinine 0.7 D (0.6-1.2) mg/dL Glucose 121 H (65-100) mg/dL Calcium 7.6 L (8.4-10.2) mg/dL Calcium panel 12/19/21 Range/Units 06:02 Calcium 7.6 L (8.4-10.2) mg/dL Pituitary panel 12/19/21 Range/Units 06:02 Sodium 146 H (137-145) mmol/L Potassium 3.5 L (3.6-5.0) mmol/L Chloride 106.4 (98-107) mmol/L Carbon Dioxide 25 (22-30) mmol/L BUN 40 H (7-17) mg/dL Creatinine 0.7 D (0.6-1.2) mg/dL Glucose 121 H (65-100) mg/dL Calcium 7.6 L (8.4-10.2) mg/dL Adrenal panel 12/19/21 Range/Units 06:02 Sodium 146 H (137-145) mmol/L Potassium 3.5 L (3.6-5.0) mmol/L Chloride 106.4 (98-107) mmol/L Carbon Dioxide 25 (22-30) mmol/L BUN 40 H (7-17) mg/dL Creatinine 0.7 D (0.6-1.2) mg/dL Glucose 121 H (65-100) mg/dL Calcium 7.6 L (8.4-10.2) mg/dL
--- NOTE | 2021-12-19 12:54 | Progress Note ---
Assessment and Plan Assessment and plan: #Small bowel obstruction Visualized on CT abdomen and pelvis without acute findings. Continue n.p.o. status with NG tube + LIWS. Continue serial KUBs. General surgery consulted; appreciate recs. Consider possible clamping of NG tube tomorrow. Continue antiemetics and analgesics as needed. #Non-insulin dependent type II diabetes mellitus - hemoglobin A1c: Unknown - home regimen: Unknown - current regimen: Moderate SSI - blood glucose goal 140-180 while inpatient - continue to monitor #Hypertension #Congestive heart failurestable - home medications: Unknown - current medications: Currently normotensive. Can consider IV Lopressor if patient requires blood pressure control while remaining n.p.o. - SBP goal <160 and DBP goal <90 while inpatient - continue to monitor #History of multiple acute ischemic CVA We will restart aspirin 81 mg daily and atorvastatin 40 mg daily once patient can tolerate p.o. intake. #Seizure history Continue seizure precautions. No current seizure medication in the chart. Continue IV Keppra 500 mg twice daily #Mild protein caloric malnutrition Albumin 3.4 Holding on starting dietary supplementation until patient can tolerate p.o. intake. #Obesity #Weight loss counseling #Exercise counseling - BMI 30.6 - Counseled patient on the importance of weight loss, incorporating exercise, and dietary changes (lean meats, fresh fruits and vegetables, and water intake). Patient expresses understanding. - Time: +15 min #Advanced care planning -Disease education conducted, care plan discussed, diagnoses discussed, prognosis discussed, and patient acknowledges understanding with care plan -Time: +30 min Disposition Plan: Continue medical management Total Time Spent with Patient (Minutes): 45 minutes History Interval history: No acute events overnight. Hospitalist Physical - Constitutional Vitals: Temp Pulse Resp BP Pulse Ox 97.7 F 108 H 18 122/77 99 12/19/21 05:19 12/19/21 05:19 12/19/21 05:19 12/19/21 05:19 12/19/21 05:19 General appearance: Present: no acute distress, well-nourished, obese - EENT Eyes: Present: PERRL, EOM intact ENT: hearing intact, clear oral mucosa, dentition normal, other (NG tube in place draining minimal fluid) - Neck Neck: Present: supple, normal ROM - Respiratory Respiratory: bilateral: CTA - Cardiovascular Rhythm: regular Heart Sounds: Present: S1 & S2 - Extremities Extremities: no ischemia, pulses intact, pulses symmetrical, No edema, normal temperature, normal color Peripheral Pulses: within normal limits - Abdominal General gastrointestinal: soft, non-tender, non-distended, normal bowel sounds - Integumentary Integumentary: Present: clear, warm, dry - Psychiatric Psychiatric: appropriate mood/affect - Neurologic Neurologic: focal deficits (Right-sided weakness), other (Mostly nonverbal secondary to history of multiple CVAs) - Allied Health Allied health notes reviewed: nursing Results - Labs CBC & Chem 7: 12/18/21 08:51 12/19/21 06:02 Labs: Laboratory Last Values WBC 11.1 K/mm3 (4.5-11.0) H 12/18/21 08:51 RBC 4.69 M/mm3 (3.65-5.03) 12/18/21 08:51 Hgb 10.6 gm/dl (10.1-14.3) 12/18/21 08:51 Hct 33.9 % (30.3-42.9) 12/18/21 08:51 MCV 72 fl (79-97) L 12/18/21 08:51 MCH 23 pg (28-32) L 12/18/21 08:51 MCHC 31 % (30-34) 12/18/21 08:51 RDW 16.4 % (13.2-15.2) H 12/18/21 08:51 Plt Count 288 K/mm3 (140-440) 12/18/21 08:51 Lymph % (Auto) 6.8 % (13.4-35.0) L 12/18/21 08:51 [place] % (Auto) 12.3 % (0.0-7.3) H 12/18/21 08:51 Eos % (Auto) 0.1 % (0.0-4.3) 12/18/21 08:51 Baso % (Auto) 0.3 % (0.0-1.8) 12/18/21 08:51 Lymph # (Auto) 0.8 K/mm3 (1.2-5.4) L 12/18/21 08:51 [place] # (Auto) 1.4 K/mm3 (0.0-0.8) H 12/18/21 08:51 Eos # (Auto) 0.0 K/mm3 (0.0-0.4) 12/18/21 08:51 Baso # (Auto) 0.0 K/mm3 (0.0-0.1) 12/18/21 08:51 Seg Neutrophils % 80.5 % (40.0-70.0) H 12/18/21 08:51 Seg Neutrophils # 8.9 K/mm3 (1.8-7.7) H 12/18/21 08:51 VBG pH 7.309 (7.320-7.420) L 12/17/21 18:55 Sodium 146 mmol/L (137-145) H 12/19/21 06:02 Potassium 3.5 mmol/L (3.6-5.0) L 12/19/21 06:02 Chloride 106.4 mmol/L (98-107) 12/19/21 06:02 Carbon Dioxide 25 mmol/L (22-30) 12/19/21 06:02 Anion Gap 18 mmol/L 12/19/21 06:02 BUN 40 mg/dL (7-17) H 12/19/21 06:02 Creatinine 0.7 mg/dL (0.6-1.2) D 12/19/21 06:02 Estimated GFR > 60 ml/min 12/19/21 06:02 BUN/Creatinine Ratio 57 % 12/19/21 06:02 Glucose 121 mg/dL (65-100) H 12/19/21 06:02 POC Glucose 112 mg/dL (70-105) H 12/18/21 21:43 Calcium 7.6 mg/dL (8.4-10.2) L 12/19/21 06:02 Total Bilirubin 0.90 mg/dL (0.1-1.2) 12/17/21 18:55 AST 18 units/L (5-40) 12/17/21 18:55 ALT 12 units/L (7-56) 12/17/21 18:55 Alkaline Phosphatase 124 units/L (35-129) 12/17/21 18:55 Total Protein 6.2 g/dL (6.3-8.2) L 12/17/21 18:55 Albumin 3.4 g/dL (3.9-5) L 12/17/21 18:55 Albumin/Globulin Ratio 1.2 % 12/17/21 18:55 Lipase 7 units/L (13-60) L 12/17/21 18:55 Urine Color Yellow (Yellow) 12/17/21 22:12 Urine Turbidity Cloudy (Clear) 12/17/21 22:12 Specific [place] (Man) 1.030 (1.003-1.030) 12/17/21 22:12 Ur Protein (Man) 2+ mg/dL (Negative) 12/17/21 22:12 Ur Ketones (Man) Negative (Negative) 12/17/21 22:12 Ur Nitrite (Man) Negative (Negative) 12/17/21 22:12 Urine Bilirubin (Man) Negative (Negative) 12/17/21 22:12 Leukocyte Esterase (Man) Small (Negative) 12/17/21 22:12 Urine WBC (Auto) < 1.0 /HPF (0.0-6.0) 12/17/21 22:12 Urine RBC (Auto) 71.0 /HPF (0.0-6.0) 12/17/21 22:12 U Epithel Cells (Auto) 1.0 /HPF (0-13.0) 12/17/21 22:12 Urine Bacteria (Auto) 4+ /HPF (Negative) 12/17/21 22:12 Urine RBC (Manual) 3+ (Negative) 12/17/21 22:12 Urine WBC Clumps 3+ /HPF 12/17/21 22:12 Urine Mucus Few /HPF 12/17/21 22:12 Urine Yeast (Budding) 3+ /HPF 12/17/21 22:12 Active Medications - Current Medications Current Medications: Generic Name Dose Route Start Last Admin Trade Name John PRN Reason Stop Dose Admin Acetaminophen 650 mg 12/17/21 23:23 Acetaminophen 325 Mg Tab PO Q4H PRN Pain MILD(1-3)/Fever >100.5/HOLMAN Albuterol 2.5 mg 12/17/21 23:23 Albuterol 2.5 Mg/3 Ml Nebu IH Q4HRT PRN Shortness Of Breath Dextrose 50 ml 12/17/21 23:24 Dextrose 50% In Water (25gm) 50 Ml Syringe IV Q30MIN PRN Hypoglycemia Protocol Famotidine 20 mg 12/18/21 10:00 12/19/21 09:54 Famotidine 20 Mg/2 Ml Inj IV 20 mg BID SHANNON Administration Dextrose 1,000 mls @ 75 mls/hr 12/18/21 20:00 12/19/21 10:32 D5w IV 75 mls/hr DIRECT SHANNON Administration Levetiracetam 500 mg/ Dextrose 105 mls @ 400 mls/hr 12/18/21 22:00 12/19/21 10:31 IV 400 mls/hr Q12HR SHANNON Administration Potassium Chloride 10 meq in 100 mls @ 100 mls/hr 12/19/21 09:00 12/19/21 09:54 Kcl 10meq/100ml IV 12/19/21 12:59 100 mls/hr Q1H SHANNON Administration Insulin Human Lispro 0 unit 12/18/21 00:00 12/19/21 07:01 Insulin Lispro 100 Unit/Ml SUB-Q Not Given Q6HR SHANNON Protocol Morphine Sulfate 2 mg 12/17/21 23:23 Morphine 2 Mg/1 Ml Inj IV Q4H PRN Pain, Moderate (4-6) Morphine Sulfate 4 mg 12/17/21 23:23 Morphine 4 Mg/1 Ml Inj IV Q4H PRN Pain , Severe (7-10) Ondansetron HCl 4 mg 12/17/21 23:23 Ondansetron 4 Mg/2 Ml Inj IV Q8H PRN Nausea And Vomiting Sodium Chloride 10 ml 12/18/21 10:00 12/19/21 09:55 Sodium Chloride 0.9% 10 Ml Flush Syringe IV 10 ml BID SHANNON Administration Sodium Chloride 10 ml 12/17/21 23:23 12/18/21 02:51 Sodium Chloride 0.9% 10 Ml Flush Syringe IV 10 ml PRN PRN Administration LINE FLUSH Nutrition/Malnutrition Assess - Dietary Evaluation Nutrition/Malnutrition Findings: Nutrition Notes Start: 12/18/21 12:33 Freq: Status: Active Protocol: Document 12/18/21 12:33 JOS (Rec: 12/18/21 12:40 JOS [id number]) Nutrition Notes Need for Assessment generated from: MD Order,water fabricator operator,MST, Education Initial or Follow up Assessment Current Diagnosis Diabetes,Hypertension,Heart Failure,Small Bowel Obstruction,Stroke Other Pertinent Diagnosis Abdominal pain, N/V Current Diet NPO Labs/Tests BUN 42 Cr 1.5 Pertinent Medications NS at 100ml/hr Height 5 ft 5 in Weight 83.5 kg Usual Body Weight 160 kg [place] Body Weight (kg) 56.81 BMI 30.6 Intake Prior to Admission Fair Weight change and time frame Current wt obtained from bed scale. Pt's daughter says pt' s height is actually ~65-66 inches. She says pt weighed ~ 300# (no time frame given), but has been losing weight since being in the [place]. Weight Status Obese Subjective/Other Information RD consulted for diet education; pt not appropriate for diet education. Pt also screened for malnutrition and skin risks (Efren score: 6). Pt is from a [place]. CT scan of abdomen revealed evidence of SBO. NGT placed to LIS. Spoke with pt's daughter during visit today. She says pt has not had a BM in ~ 2 wks . Last PO intake was this past Tuesday. Nutrition- focused physical exam revealed muscle wasting at temples and clavicles. Pt requires assistance during meal times. Burn Absent Trauma Absent GI Symptoms Nausea,Vomiting Minimum of two criteria No Muscle Mass Mild Depletion (non-severe) #1 Nutrition Diagnosis Altered GI function Etiology SBO As Evidenced by Signs and Symptoms pt NPO Is patient on ventilator? No Is Patient Ambulatory and/or Out of Bed No REE-([place]-confined to bed) 4223.040 Calculation Used for Recommendations [place] Additional Notes Pro needs 1-1.2g/kg adjBW: 70- 84g/day Fluid needs 1ml/kcal Nutrition Intervention Change Diet Order: Advance diet when medically feasible Goal #1 Diet advancement to meet nutrient needs Anticipated Discharge Needs: Unable to identify at this time Follow-Up By: 12/21/21 Additional Comments F/U: diet advancement
[2021-12-20] MEDS: INSULIN LISPRO 100 UNIT/ML SUB-Q SCH ×4 (00:37→17:03)
[2021-12-20 08:17] LABS: Basophils % (Auto) 0.2 % (0.0-1.8); Eosinophils # (Auto) 0.1 K/mm3 (0.0-0.4); Eosinophils % (Auto) 0.4 % (0.0-4.3); Hematocrit 31.5 % (30.3-42.9); Hemoglobin 9.7 gm/dl (10.1-14.3); Lymphocytes % (Auto) 7.4 % (13.4-35.0); Mean Corpuscular HGB Conc 31 % (30-34); Mean Corpuscular Volume 72 fl (79-97); Monocytes # (Auto) 1.4 K/mm3 (0.0-0.8); Monocytes % (Auto) 10.1 % (0.0-7.3); Platelet Count 285 K/mm3 (140-440); Red Cell Distribution Width 16.4 % (13.2-15.2)
--- NOTE | 2021-12-20 08:26 | XRay Report ---
ABDOMEN 1 VIEW(S) INDICATION / CLINICAL INFORMATION: f/u sbo. COMPARISON: Yesterday FINDINGS: TUBES / LINES: NG tube tip in the proximal stomach. BOWEL GAS PATTERN: No significant abnormality. FREE AIR / EXTRALUMINAL GAS: None seen. ADDITIONAL FINDINGS: No significant additional findings. IMPRESSION: 1. NGT in the proximal stomach. Signer Name: Deuce Palacios MD Signed: 12/20/2021 8:22 AM Workstation Name: [id number]
[2021-12-20 08:27] LABS: Blood Urea Nitrogen 24 mg/dL (7-17); Calcium 7.9 mg/dL (8.4-10.2); Hemolysis Index 0
--- NOTE | 2021-12-20 08:28 | Progress Note ---
Assessment and Plan Assessment and plan: #Small bowel obstruction Visualized on CT abdomen and pelvis without acute findings. Continue n.p.o. status with NG tube + LIWS. Continue serial KUBs. General surgery consulted; appreciate recs. Clamping of NG tube and monitoring for residuals; if >150 cc, patient will be returned back to low intermittent wall suction. Continue antiemetics and analgesics as needed. #Non-insulin dependent type II diabetes mellitus - hemoglobin A1c: Unknown - home regimen: Unknown - current regimen: Moderate SSI - blood glucose goal 140-180 while inpatient - continue to monitor #Hypertension #Congestive heart failurestable - home medications: Unknown - current medications: Currently normotensive. Can consider IV Lopressor if patient requires blood pressure control while remaining n.p.o. - SBP goal <160 and DBP goal <90 while inpatient - continue to monitor #History of multiple acute ischemic CVA We will restart aspirin 81 mg daily and atorvastatin 40 mg daily once patient can tolerate p.o. intake. #Seizure history Continue seizure precautions. No current seizure medication in the chart. Continue IV Keppra 500 mg twice daily #Mild protein caloric malnutrition Albumin 3.4 Holding on starting dietary supplementation until patient can tolerate p.o. intake. #Obesity #Weight loss counseling #Exercise counseling - BMI 30.6 - Counseled patient on the importance of weight loss, incorporating exercise, a nd dietary changes (lean meats, fresh fruits and vegetables, and water intake). Patient expresses understanding. - Time: +15 min #Advanced care planning -Disease education conducted, care plan discussed, diagnoses discussed, prognosis discussed, and patient acknowledges understanding with care plan -Time: +30 min Disposition Plan: Continue medical management Total Time Spent with Patient (Minutes): 45 minutes History Interval history: No acute events overnight. Hospitalist Physical - Constitutional Vitals: Temp Pulse Resp BP Pulse Ox 98.9 F 102 H 18 135/86 98 12/19/21 21:15 12/19/21 21:15 12/19/21 21:15 12/19/21 21:15 12/20/21 07:49 General appearance: Present: no acute distress, well-nourished, obese - EENT Eyes: Present: PERRL, EOM intact ENT: hearing intact, clear oral mucosa, dentition normal, other (NG tube in place draining minimal fluid) - Neck Neck: Present: supple, normal ROM - Respiratory Respiratory effort: normal Respiratory: bilateral: diminished - Cardiovascular Rhythm: regular Heart Sounds: Present: S1 & S2 - Extremities Extremities: no ischemia, pulses intact, pulses symmetrical, No edema, normal temperature, normal color Peripheral Pulses: within normal limits - Abdominal General gastrointestinal: soft, non-tender, non-distended, normal bowel sounds - Integumentary Integumentary: Present: clear, warm, dry - Psychiatric Psychiatric: appropriate mood/affect, other (Mostly nonverbal at baseline) - Neurologic Neurologic: CNII-XII intact, focal deficits (Right-sided weakness secondary to prior CVA) - Allied Health Allied health notes reviewed: nursing Results - Labs CBC & Chem 7: 12/20/21 07:08 12/20/21 07:08 Labs: Laboratory Last Values WBC 13.4 K/mm3 (4.5-11.0) H 12/20/21 07:08 RBC 4.40 M/mm3 (3.65-5.03) 12/20/21 07:08 Hgb 9.7 gm/dl (10.1-14.3) L 12/20/21 07:08 Hct 31.5 % (30.3-42.9) 12/20/21 07:08 MCV 72 fl (79-97) L 12/20/21 07:08 MCH 22 pg (28-32) L 12/20/21 07:08 MCHC 31 % (30-34) 12/20/21 07:08 RDW 16.4 % (13.2-15.2) H 12/20/21 07:08 Plt Count 285 K/mm3 (140-440) 12/20/21 07:08 Lymph % (Auto) 7.4 % (13.4-35.0) L 12/20/21 07:08 [place] % (Auto) 10.1 % (0.0-7.3) H 12/20/21 07:08 Eos % (Auto) 0.4 % (0.0-4.3) 12/20/21 07:08 Baso % (Auto) 0.2 % (0.0-1.8) 12/20/21 07:08 Lymph # (Auto) 1.0 K/mm3 (1.2-5.4) L 12/20/21 07:08 [place] # (Auto) 1.4 K/mm3 (0.0-0.8) H 12/20/21 07:08 Eos # (Auto) 0.1 K/mm3 (0.0-0.4) 12/20/21 07:08 Baso # (Auto) 0.0 K/mm3 (0.0-0.1) 12/20/21 07:08 Seg Neutrophils % 81.9 % (40.0-70.0) H 12/20/21 07:08 Seg Neutrophils # 11.0 K/mm3 (1.8-7.7) H 12/20/21 07:08 VBG pH 7.309 (7.320-7.420) L 12/17/21 18:55 Sodium 146 mmol/L (137-145) H 12/19/21 06:02 Potassium 3.5 mmol/L (3.6-5.0) L 12/19/21 06:02 Chloride 106.4 mmol/L (98-107) 12/19/21 06:02 Carbon Dioxide 25 mmol/L (22-30) 12/19/21 06:02 Anion Gap 18 mmol/L 12/19/21 06:02 BUN 40 mg/dL (7-17) H 12/19/21 06:02 Creatinine 0.7 mg/dL (0.6-1.2) D 12/19/21 06:02 Estimated GFR > 60 ml/min 12/19/21 06:02 BUN/Creatinine Ratio 57 % 12/19/21 06:02 Glucose 121 mg/dL (65-100) H 12/19/21 06:02 POC Glucose 101 mg/dL (70-105) 12/19/21 16:11 Calcium 7.6 mg/dL (8.4-10.2) L 12/19/21 06:02 Total Bilirubin 0.90 mg/dL (0.1-1.2) 12/17/21 18:55 AST 18 units/L (5-40) 12/17/21 18:55 ALT 12 units/L (7-56) 12/17/21 18:55 Alkaline Phosphatase 124 units/L (35-129) 12/17/21 18:55 Total Protein 6.2 g/dL (6.3-8.2) L 12/17/21 18:55 Albumin 3.4 g/dL (3.9-5) L 12/17/21 18:55 Albumin/Globulin Ratio 1.2 % 12/17/21 18:55 Lipase 7 units/L (13-60) L 12/17/21 18:55 Urine Color Yellow (Yellow) 12/17/21 22:12 Urine Turbidity Cloudy (Clear) 12/17/21 22:12 Specific [place] (Man) 1.030 (1.003-1.030) 12/17/21 22:12 Ur Protein (Man) 2+ mg/dL (Negative) 12/17/21 22:12 Ur Ketones (Man) Negative (Negative) 12/17/21 22:12 Ur Nitrite (Man) Negative (Negative) 12/17/21 22:12 Urine Bilirubin (Man) Negative (Negative) 12/17/21 22:12 Leukocyte Esterase (Man) Small (Negative) 12/17/21 22:12 Urine WBC (Auto) < 1.0 /HPF (0.0-6.0) 12/17/21 22:12 Urine RBC (Auto) 71.0 /HPF (0.0-6.0) 12/17/21 22:12 U Epithel Cells (Auto) 1.0 /HPF (0-13.0) 12/17/21 22:12 Urine Bacteria (Auto) 4+ /HPF (Negative) 12/17/21 22:12 Urine RBC (Manual) 3+ (Negative) 12/17/21 22:12 Urine WBC Clumps 3+ /HPF 12/17/21 22:12 Urine Mucus Few /HPF 12/17/21 22:12 Urine Yeast (Budding) 3+ /HPF 12/17/21 22:12 York/IV: Voiding Method Incontinent Active Medications - Current Medications Current Medications: Generic Name Dose Route Start Last Admin Trade Name Freq PRN Reason Stop Dose Admin Acetaminophen 650 mg 12/17/21 23:23 Acetaminophen 325 Mg Tab PO Q4H PRN Pain MILD(1-3)/Fever >100.5/HOLMAN Albuterol 2.5 mg 12/17/21 23:23 Albuterol 2.5 Mg/3 Ml Nebu IH Q4HRT PRN Shortness Of Breath Dextrose 50 ml 12/17/21 23:24 Dextrose 50% In Water (25gm) 50 Ml Syringe IV Q30MIN PRN Hypoglycemia Protocol Famotidine 20 mg 12/18/21 10:00 12/19/21 21:11 Famotidine 20 Mg/2 Ml Inj IV 20 mg BID SHANNON Administration Dextrose 1,000 mls @ 75 mls/hr 12/18/21 20:00 12/19/21 10:32 D5w IV 75 mls/hr DIRECT SHANNON Administration Levetiracetam 500 mg/ Dextrose 105 mls @ 400 mls/hr 12/18/21 22:00 12/19/21 21:10 IV 400 mls/hr Q12HR SHANNON Administration Insulin Human Lispro 0 unit 12/18/21 00:00 12/20/21 07:07 Insulin Lispro 100 Unit/Ml SUB-Q Not Given Q6HR SHANNON Protocol Morphine Sulfate 2 mg 12/17/21 23:23 Morphine 2 Mg/1 Ml Inj IV Q4H PRN Pain, Moderate (4-6) Morphine Sulfate 4 mg 12/17/21 23:23 Morphine 4 Mg/1 Ml Inj IV Q4H PRN Pain , Severe (7-10) Ondansetron HCl 4 mg 12/17/21 23:23 Ondansetron 4 Mg/2 Ml Inj IV Q8H PRN Nausea And Vomiting Sodium Chloride 10 ml 12/18/21 10:00 12/19/21 21:11 Sodium Chloride 0.9% 10 Ml Flush Syringe IV 10 ml BID SHANNON Administration Sodium Chloride 10 ml 12/17/21 23:23 12/18/21 02:51 Sodium Chloride 0.9% 10 Ml Flush Syringe IV 10 ml PRN PRN Administration LINE FLUSH Nutrition/Malnutrition Assess - Dietary Evaluation Nutrition/Malnutrition Findings: Nutrition Notes Start: 12/18/21 12:33 Freq: Status: Active Protocol: Document 12/18/21 12:33 [facility] (Rec: 12/18/21 12:40 [facility] [id number]) Nutrition Notes Need for Assessment generated from: MD Order,manager mission,MST, Education Initial or Follow up Assessment Current Diagnosis Diabetes,Hypertension,Heart Failure,Small Bowel Obstruction,Stroke Other Pertinent Diagnosis Abdominal pain, N/V Current Diet NPO Labs/Tests BUN 42 Cr 1.5 Pertinent Medications NS at 100ml/hr Height 5 ft 5 in Weight 83.5 kg Usual Body Weight 160 kg [place] Body Weight (kg) 56.81 BMI 30.6 Intake Prior to Admission Fair Weight change and time frame Current wt obtained from bed scale. Pt's daughter says pt' s height is actually ~65-66 inches. She says pt weighed ~ 300# (no time frame given), but has been losing weight since being in the [facility]. Weight Status Obese Subjective/Other Information RD consulted for diet education; pt not appropriate for diet education. Pt also screened for malnutrition and skin risks (Efren score: 6). Pt is from a NH. CT scan of abdomen revealed evidence of SBO. NGT placed to LIS. Spoke with pt's daughter during visit today. She says pt has not had a BM in ~ 2 wks . Last PO intake was this past Tuesday. Nutrition- focused physical exam revealed muscle wasting at temples and clavicles. Pt requires assistance during meal times. Burn Absent Trauma Absent GI Symptoms Nausea,Vomiting Minimum of two criteria No Muscle Mass Mild Depletion (non-severe) #1 Nutrition Diagnosis Altered GI function Etiology SBO As Evidenced by Signs and Symptoms pt NPO Is patient on ventilator? No Is Patient Ambulatory and/or Out of Bed No REE-([place]-St. Jeor-confined to bed) 7209.040 Calculation Used for Recommendations [place]-St Jeor Additional Notes Pro needs 1-1.2g/kg adjBW: 70- 84g/day Fluid needs 1ml/kcal Nutrition Intervention Change Diet Order: Advance diet when medically feasible Goal #1 Diet advancement to meet nutrient needs Anticipated Discharge Needs: Unable to identify at this time Follow-Up By: 12/21/21 Additional Comments F/U: diet advancement
[2021-12-20 08:29] LABS: BUN/Creatinine Ratio 60
[2021-12-20] MEDS: DEXTROSE 5% IN WATER 1,000 ML IV SCH ×2 (08:50→21:56)
[2021-12-20] MEDS: FAMOTIDINE 20 MG/2 ML INJ IV SCH ×2 (10:26→21:57)
[2021-12-20] MEDS: levETIRAcetam 500 MG in DEXTROSE 5% IN WATER 100 ML IV SCH (10:26)
--- NOTE | 2021-12-20 11:02 | Progress Note ---
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 She is showing no acute findings suggestive of bowel perforation or ischemia. Patient is afebrile and stable doing well with NG tube decompression. Because patient is nonverbal will be difficult to assess progress by asking her subjective symptoms such as pain or flatus. Since patient had bowel movements and abdominal x-ray looks as a small bowel obstruction may be resolving we will clamp NG tube today. We will resume suction if he is having high residuals. Subjective Date of service: 12/20/21 Narrative: No acute events overnight. Per the nurse the patient had several bowel movements overnight. Patient had abdominal x-ray this morning that showed a zamzam rly normal gas pattern. There is no documentation of NG tube output in her chart however there was 600 cc in the canister upon examination. Objective Vital Signs - 12hr 12/19/21 12/20/21 23:16 07:49 O2 Sat by Pulse 96 98 Oximetry - General physical appearance well developed, no distress, no pain, obese, other (non verbal but arrousable) - Respiratory normal expansion, normal respiratory effort - Abdomen soft, not tender, not distended, not guarding, other (NGT bilious with 600cc in canister) - Labs 12/20/21 07:08 12/20/21 07:08 Diabetes panel 12/20/21 Range/Units 07:08 Sodium 142 (137-145) mmol/L Potassium 3.5 L (3.6-5.0) mmol/L Chloride 104.8 (98-107) mmol/L Carbon Dioxide 29 (22-30) mmol/L BUN 24 H (7-17) mg/dL Creatinine 0.4 L (0.6-1.2) mg/dL Glucose 142 H (65-100) mg/dL Calcium 7.9 L (8.4-10.2) mg/dL Calcium panel 12/20/21 Range/Units 07:08 Calcium 7.9 L (8.4-10.2) mg/dL Pituitary panel 12/20/21 Range/Units 07:08 Sodium 142 (137-145) mmol/L Potassium 3.5 L (3.6-5.0) mmol/L Chloride 104.8 (98-107) mmol/L Carbon Dioxide 29 (22-30) mmol/L BUN 24 H (7-17) mg/dL Creatinine 0.4 L (0.6-1.2) mg/dL Glucose 142 H (65-100) mg/dL Calcium 7.9 L (8.4-10.2) mg/dL Adrenal panel 12/20/21 Range/Units 07:08 Sodium 142 (137-145) mmol/L Potassium 3.5 L (3.6-5.0) mmol/L Chloride 104.8 (98-107) mmol/L Carbon Dioxide 29 (22-30) mmol/L BUN 24 H (7-17) mg/dL Creatinine 0.4 L (0.6-1.2) mg/dL Glucose 142 H (65-100) mg/dL Calcium 7.9 L (8.4-10.2) mg/dL
[2021-12-21] MEDS: levETIRAcetam 500 MG in DEXTROSE 5% IN WATER 100 ML IV SCH ×3 (00:12→23:09)
[2021-12-21] MEDS: INSULIN LISPRO 100 UNIT/ML SUB-Q SCH ×4 (00:52→18:00)
[2021-12-21 07:06] LABS: Basophils % (Auto) 0.1 % (0.0-1.8); Eosinophils # (Auto) 0.1 K/mm3 (0.0-0.4); Hematocrit 34.2 % (30.3-42.9); Hemoglobin 10.8 gm/dl (10.1-14.3); Lymphocytes # (Auto) 1.1 K/mm3 (1.2-5.4); Lymphocytes % (Auto) 10.9 % (13.4-35.0); Mean Corpuscular HGB Conc 32 % (30-34); Mean Corpuscular Volume 72 fl (79-97); Monocytes # (Auto) 1.5 K/mm3 (0.0-0.8); Platelet Count 297 K/mm3 (140-440); Red Blood Count 4.75 M/mm3 (3.65-5.03); Red Cell Distribution Width 16.1 % (13.2-15.2)
[2021-12-21 07:29] LABS: Blood Urea Nitrogen 13 mg/dL (7-17); Calcium 7.9 mg/dL (8.4-10.2); Hemolysis Index 1
[2021-12-21 07:31] LABS: BUN/Creatinine Ratio 43
[2021-12-21] MEDS: FAMOTIDINE 20 MG/2 ML INJ IV SCH ×2 (09:53→21:43)
[2021-12-21] MEDS: DEXTROSE 5% IN WATER 1,000 ML IV SCH (13:08)
--- NOTE | 2021-12-21 13:12 | Cat Scan Report ---
CT head/brain wo con INDICATION: Concern for possible ischemia CVA. TECHNIQUE: CT head. All CT scans at this location are performed using CT dose reduction for ALARA by means of automated exposure control. COMPARISON: July 06 FINDINGS: Intracranial: Colbert-white matter differentiation loss in the right frontal lobe with associated mass e ffect in the right ROSEANNA territory. Encephalomalacia related to remote infarction is involving the righ t parietal lobe, right occipital lobe, and cerebellar hemispheres. Confluent periventricular and cent rum semiovale white matter hypoattenuation most consistent with severe sequela of chronic microvascul ar disease. No intracranial hemorrhage. No extra axial collection. No hydrocephalus. No herniation. Sinuses: Paranasal sinuses and mastoid air cells are essentially clear. Orbits: Globes are intact. Calvarium: No acute fracture. IMPRESSION: 1. Acute to subacute appearing infarction in the right ROSEANNA territory. 2. Remote right occipital lobe infarction. Severe sequela from chronic microvascular disease. Signer Name: Ken Tom MD Signed: 12/21/2021 1:08 PM Workstation Name: [id number]
--- NOTE | 2021-12-21 15:53 | Progress Note ---
Assessment and Plan Assessment and plan: #Acute/subacute ischemic CVA Patient's sister (DOMINIK) endorsed concern for decreased interaction of patient. Sister states patient is more verbal and interactive. Head CT noncontrast (12/21/2021) revealing "acute to subacute appearing infarction in the right ROSEAN[place] territory; remote right occipital lobe infarction; severe sequela from chronic microvascular disease." Neurology consulted; pending recs. Currently holding aspirin 325 mg daily and atorvastatin 40 mg daily as the patient is NPO. Continue to monitor #Small bowel obstruction Visualized on CT abdomen and pelvis without acute findings. Continue n.p.o. status with NG tube + LIWS. Continue serial KUBs. General surgery consulted; appreciate recs. Clamping of NG tube and monitoring for residuals; if >150 cc, patient will be returned back to low intermittent wall suction. Pending CT abdomen and pelvis with contrast to evaluate for current status of small bowel obstruction. Patient unable to truly verbalize her current clinical status. Continue antiemetics and analgesics as needed. #Non-insulin dependent type II diabetes mellitus - hemoglobin A1c: Unknown - home regimen: Unknown - current regimen: Moderate SSI - blood glucose goal 140-180 while inpatient - continue to monitor #Hypertension #Congestive heart failurestable - home medications: Unknown - current medications: Currently normotensive. Can consider IV Lopressor if patient requires blood pressure control while remaining n.p.o. - SBP goal <160 and DBP goal <90 while inpatient - continue to monitor #History of multiple acute ischemic CVA We will restart aspirin 81 mg daily and atorvastatin 40 mg daily once patient can tolerate p.o. intake. #Seizure history Continue seizure precautions. No current seizure medication in the chart. Continue IV Keppra 500 mg twice daily #Mild protein caloric malnutrition Albumin 3.4 Holding on starting dietary supplementation until patient can tolerate p.o. intake. #Obesity #Weight loss counseling #Exercise counseling - BMI 30.6 - Counseled patient on the importance of weight loss, incorporating exercise, and dietary changes (lean meats, fresh fruits and vegetables, and water intake). Patient expresses understanding. - Time: +15 min #Advanced care planning -Disease education conducted, care plan discussed, diagnoses discussed, prognosis discussed, and patient acknowledges understanding with care plan -Time: +30 min Disposition Plan: Continue medical management Total Time Spent with Patient (Minutes): 45 minutes History Interval history: No acute events overnight. Hospitalist Physical - Constitutional Vitals: Temp Pulse Resp BP Pulse Ox 99.0 F 101 H 18 137/83 96 12/21/21 13:39 12/21/21 13:39 12/21/21 13:39 12/21/21 13:39 12/21/21 13:39 General appearance: Present: no acute distress, well-nourished, obese - EENT Eyes: Present: PERRL, EOM intact ENT: hearing intact, clear oral mucosa, dentition normal, other (NG tube in place draining moderate greenish tinged fluid) - Neck Neck: Present: supple, normal ROM - Respiratory Respiratory effort: normal Respiratory: bilateral: CTA - Cardiovascular Rhythm: regular Heart Sounds: Present: S1 & S2 - Extremities Extremities: no ischemia, pulses intact, pulses symmetrical, No edema, normal temperature, normal color Peripheral Pulses: within normal limits - Abdominal General gastrointestinal: soft, non-tender, non-distended, normal bowel sounds - Integumentary Integumentary: Present: clear, warm, dry - Psychiatric Psychiatric: other (Unable to fully assess given patient's medical condition) - Neurologic Neurologic: CNII-XII intact, focal deficits (Right-sided weakness), other (Mostly nonverbal) - Allied Health Allied health notes reviewed: nursing Results - Labs CBC & Chem 7: 12/21/21 06:41 12/21/21 06:41 Labs: Laboratory Last Values WBC 10.4 K/mm3 (4.5-11.0) 12/21/21 06:41 RBC 4.75 M/mm3 (3.65-5.03) 12/21/21 06:41 Hgb 10.8 gm/dl (10.1-14.3) 12/21/21 06:41 Hct 34.2 % (30.3-42.9) 12/21/21 06:41 MCV 72 fl (79-97) L 12/21/21 06:41 MCH 23 pg (28-32) L 12/21/21 06:41 MCHC 32 % (30-34) 12/21/21 06:41 RDW 16.1 % (13.2-15.2) H 12/21/21 06:41 Plt Count 297 K/mm3 (140-440) 12/21/21 06:41 Lymph % (Auto) 10.9 % (13.4-35.0) L 12/21/21 06:41 [place] % (Auto) 14.0 % (0.0-7.3) H 12/21/21 06:41 Eos % (Auto) 1.0 % (0.0-4.3) 12/21/21 06:41 Baso % (Auto) 0.1 % (0.0-1.8) 12/21/21 06:41 Lymph # (Auto) 1.1 K/mm3 (1.2-5.4) L 12/21/21 06:41 [place] # (Auto) 1.5 K/mm3 (0.0-0.8) H 12/21/21 06:41 Eos # (Auto) 0.1 K/mm3 (0.0-0.4) 12/21/21 06:41 Baso # (Auto) 0.0 K/mm3 (0.0-0.1) 12/21/21 06:41 Seg Neutrophils % 74.0 % (40.0-70.0) H 12/21/21 06:41 Seg Neutrophils # 7.7 K/mm3 (1.8-7.7) 12/21/21 06:41 VBG pH 7.309 (7.320-7.420) L 12/17/21 18:55 Sodium 141 mmol/L (137-145) 12/21/21 06:41 Potassium 3.3 mmol/L (3.6-5.0) L 12/21/21 06:41 Chloride 101.7 mmol/L (98-107) 12/21/21 06:41 Carbon Dioxide 30 mmol/L (22-30) 12/21/21 06:41 Anion Gap 13 mmol/L 12/21/21 06:41 BUN 13 mg/dL (7-17) 12/21/21 06:41 Creatinine 0.3 mg/dL (0.6-1.2) L 12/21/21 06:41 Estimated GFR > 60 ml/min 12/21/21 06:41 BUN/Creatinine Ratio 43 % 12/21/21 06:41 Glucose 137 mg/dL (65-100) H 12/21/21 06:41 POC Glucose 130 mg/dL (70-105) H 12/21/21 05:42 Calcium 7.9 mg/dL (8.4-10.2) L 12/21/21 06:41 Total Bilirubin 0.90 mg/dL (0.1-1.2) 12/17/21 18:55 AST 18 units/L (5-40) 12/17/21 18:55 ALT 12 units/L (7-56) 12/17/21 18:55 Alkaline Phosphatase 124 units/L (35-129) 12/17/21 18:55 Total Protein 6.2 g/dL (6.3-8.2) L 12/17/21 18:55 Albumin 3.4 g/dL (3.9-5) L 12/17/21 18:55 Albumin/Globulin Ratio 1.2 % 12/17/21 18:55 Lipase 7 units/L (13-60) L 12/17/21 18:55 Urine Color Yellow (Yellow) 12/17/21 22:12 Urine Turbidity Cloudy (Clear) 12/17/21 22:12 Specific [place] (Man) 1.030 (1.003-1.030) 12/17/21 22:12 Ur Protein (Man) 2+ mg/dL (Negative) 12/17/21 22:12 Ur Ketones (Man) Negative (Negative) 12/17/21 22:12 Ur Nitrite (Man) Negative (Negative) 12/17/21 22:12 Urine Bilirubin (Man) Negative (Negative) 12/17/21 22:12 Leukocyte Esterase (Man) Small (Negative) 12/17/21 22:12 Urine WBC (Auto) < 1.0 /HPF (0.0-6.0) 12/17/21 22:12 Urine RBC (Auto) 71.0 /HPF (0.0-6.0) 12/17/21 22:12 U Epithel Cells (Auto) 1.0 /HPF (0-13.0) 12/17/21 22:12 Urine Bacteria (Auto) 4+ /HPF (Negative) 12/17/21 22:12 Urine RBC (Manual) 3+ (Negative) 12/17/21 22:12 Urine WBC Clumps 3+ /HPF 12/17/21 22:12 Urine Mucus Few /HPF 12/17/21 22:12 Urine Yeast (Budding) 3+ /HPF 12/17/21 22:12 [place]/IV: Voiding Method Incontinent Active Medications - Current Medications Current Medications: Generic Name Dose Route Start Last Admin Trade Name Freq PRN Reason Stop Dose Admin Acetaminophen 650 mg 12/17/21 23:23 Acetaminophen 325 Mg Tab PO Q4H PRN Pain MILD(1-3)/Fever >100.5/HOLMAN Albuterol 2.5 mg 12/17/21 23:23 Albuterol 2.5 Mg/3 Ml Nebu IH Q4HRT PRN Shortness Of Breath Dextrose 50 ml 12/17/21 23:24 Dextrose 50% In Water (25gm) 50 Ml Syringe IV Q30MIN PRN Hypoglycemia Protocol Famotidine 20 mg 12/18/21 10:00 12/21/21 09:53 Famotidine 20 Mg/2 Ml Inj IV 20 mg BID SHANNON Administration Dextrose 1,000 mls @ 75 mls/hr 12/18/21 20:00 12/21/21 13:08 D5w IV 75 mls/hr DIRECT SHANNON Administration Levetiracetam 500 mg/ Dextrose 105 mls @ 400 mls/hr 12/18/21 22:00 12/21/21 09:54 IV 400 mls/hr Q12HR SHANNON Administration Potassium Chloride 10 meq in 100 mls @ 100 mls/hr 12/21/21 14:00 Kcl 10meq/100ml IV 12/21/21 17:59 Q1H SHANNON Insulin Human Lispro 0 unit 12/18/21 00:00 12/21/21 05:45 Insulin Lispro 100 Unit/Ml SUB-Q Not Given Q6HR SHANNON Protocol Morphine Sulfate 2 mg 12/17/21 23:23 Morphine 2 Mg/1 Ml Inj IV Q4H PRN Pain, Moderate (4-6) Morphine Sulfate 4 mg 12/17/21 23:23 Morphine 4 Mg/1 Ml Inj IV Q4H PRN Pain , Severe (7-10) Ondansetron HCl 4 mg 12/17/21 23:23 Ondansetron 4 Mg/2 Ml Inj IV Q8H PRN Nausea And Vomiting Sodium Chloride 10 ml 12/18/21 10:00 12/21/21 09:55 Sodium Chloride 0.9% 10 Ml Flush Syringe IV 10 ml BID SHANNON Administration Sodium Chloride 10 ml 12/17/21 23:23 12/18/21 02:51 Sodium Chloride 0.9% 10 Ml Flush Syringe IV 10 ml PRN PRN Administration LINE FLUSH Nutrition/Malnutrition Assess - Dietary Evaluation Nutrition/Malnutrition Findings: Nutrition Notes Start: 12/18/21 12:33 Freq: Status: Active Protocol: Document 12/21/21 15:37 JOS (Rec: 12/21/21 15:38 JOS [id number]) Nutrition Notes Initial or Follow up Brief Note Current Diet NPO Labs/Tests K 3.3 Pertinent Medications 10mEq KCl at 100ml/hr x 4 bags Subjective/Other Information Pt remains NPO; NGT clamped yesterday. BM x 1 on yesterday and x3 on 12/19. Nutrition Intervention Follow-Up By: 12/23/21 Additional Comments F/U: diet advancement, POC
--- NOTE | 2021-12-21 15:56 | Progress Note ---
Assessment and Plan 51-year-old female with history of CVA, diabetes, CHF, hypertension, seizure was brought to the emergency room because of abdominal pain. Patient states she has had intermittent cramping abdominal pain for the past 4 days. Patient admi ts to intractable nausea vomiting since yesterday. Patient describes the pain as cramping and intermittent in nature. Patient states she has not had a bowel movement in 2 months. The patient is a resident at [facility] and a KUB performed at that facility today that was read as "probable partial small bowel obstruction. CT recommended." Patient with continued NG tube decompression for partial small bowel obstruction. She has not been able to communicate since admission. Patient family specifically her sister is at the bedside stating that the change in mental status happened the night of admission. Findings discussed with Dr. Varner. CT of the head has been completed and apparently is indicating a right- sided ischemic event. CT of abdomen pelvis to evaluate small bowel obstruction remains pending. Continue NG suction for now. Cont ng suctin, ivf and serial exams. Subjective Date of service: 12/21/21 Narrative: Patient with continued NG tube decompression for partial small bowel obstruction. She has not been able to communicate since admission. Patient family specifically her sister is at the bedside stating that the change in mental status happened the night of admission. Findings discussed with Dr. Varner. CT of the head has been completed and apparently is indicating a right- sided ischemic event. CT of abdomen pelvis to evaluate small bowel obstruction remains pending. Continue NG suction for now. Objective Vital Signs - 12hr 12/21/21 13:39 Temperature 99.0 F Pulse Rate 101 H Respiratory 18 Rate Blood Pressure 137/83 O2 Sat by Pulse 96 Oximetry - Labs 12/21/21 06:41 12/21/21 06:41 Diabetes panel 12/21/21 Range/Units 06:41 Sodium 141 (137-145) mmol/L Potassium 3.3 L (3.6-5.0) mmol/L Chloride 101.7 (98-107) mmol/L Carbon Dioxide 30 (22-30) mmol/L BUN 13 (7-17) mg/dL Creatinine 0.3 L (0.6-1.2) mg/dL Glucose 137 H (65-100) mg/dL Calcium 7.9 L (8.4-10.2) mg/dL Calcium panel 12/21/21 Range/Units 06:41 Calcium 7.9 L (8.4-10.2) mg/dL Pituitary panel 12/21/21 Range/Units 06:41 Sodium 141 (137-145) mmol/L Potassium 3.3 L (3.6-5.0) mmol/L Chloride 101.7 (98-107) mmol/L Carbon Dioxide 30 (22-30) mmol/L BUN 13 (7-17) mg/dL Creatinine 0.3 L (0.6-1.2) mg/dL Glucose 137 H (65-100) mg/dL Calcium 7.9 L (8.4-10.2) mg/dL Adrenal panel 12/21/21 Range/Units 06:41 Sodium 141 (137-145) mmol/L Potassium 3.3 L (3.6-5.0) mmol/L Chloride 101.7 (98-107) mmol/L Carbon Dioxide 30 (22-30) mmol/L BUN 13 (7-17) mg/dL Creatinine 0.3 L (0.6-1.2) mg/dL Glucose 137 H (65-100) mg/dL Calcium 7.9 L (8.4-10.2) mg/dL
--- NOTE | 2021-12-21 16:47 | Cat Scan Report ---
CT ABDOMEN AND PELVIS WITH CONTRAST INDICATION / CLINICAL INFORMATION: Evaluate for SBO improvement. TECHNIQUE: Axial CT images were obtained through the abdomen and pelvis after 100 cc Omnipaque [address] scans at this location are performed using CT dose reduction for ALARA by means of automated exposure control. COMPARISON: CT of the abdomen pelvis dated 12/17/2021 FINDINGS: LOWER CHEST: Left greater than right pleural effusions with adjacent atelectasis. There is increased consolidation within the bilateral lower lobes. AORTA / ARTERIES: Mild atherosclerotic calcification without acute abnormality. IVC / VEINS: No significant abnormality. LYMPH NODES: No significant adenopathy. COLON: No significant abnormality. APPENDIX: Not visualized. STOMACH / SMALL BOWEL: Enteric tube terminates within the stomach. There is mild gastric wall thicken ing, which may be secondary to gastritis. Interval decrease in prominence of small bowel throughout t he abdomen without evidence of segment of dilated bowel. PERITONEUM: Trace free fluid within the pelvis. No free air. No fluid collection. LIVER: No significant abnormality. GALLBLADDER: Uncomplicated cholelithiasis. BILE DUCTS: No significant abnormality. PANCREAS: No significant abnormality. SPLEEN: No significant abnormality. ADRENALS: No significant abnormality. RIGHT KIDNEY / URETER: No significant abnormality. LEFT KIDNEY / URETER: No significant abnormality. URINARY BLADDER: Urinary bladder wall appears thickened with wall enhancement REPRODUCTIVE ORGANS: No significant abnormality. SKELETAL SYSTEM: Post traumatic appearance of the left proximal femur. Scattered degeneration. ADDITIONAL FINDINGS: None. IMPRESSION: 1. As compared to previous CT there is decreased prominence of dilated bowel throughout the abdomen w ithout CT findings to suggest small bowel obstruction. 2. There is interval development of bilateral, left greater than right pleural effusions with increas ed consolidations in bilateral lung bases. This may represent atelectasis; however, infectious proces s should be considered in the appropriate clinical setting. 3. There is thickening of the gastric wall which may be secondary to gastritis. 4. There is thickening and enhancement of the urinary bladder wall which may be secondary to cystitis . Signer Name: Marques Knight DO Signed: 12/21/2021 4:43 PM Workstation Name: [id number]
[2021-12-21] MEDS: POTASSIUM CHLORIDE 10 MEQ 10 MEQ/100 ML BAG IV SCH ×4 (17:00→21:40)
[2021-12-22] MEDS: INSULIN LISPRO 100 UNIT/ML SUB-Q SCH ×3 (00:26→12:00)
[2021-12-22] MEDS: DEXTROSE 5% IN WATER 1,000 ML IV SCH (05:17)
[2021-12-22 06:12] LABS: Basophils % (Auto) 0.1 % (0.0-1.8); Eosinophils # (Auto) 0.2 K/mm3 (0.0-0.4); Eosinophils % (Auto) 2.2 % (0.0-4.3); Hematocrit 31.8 % (30.3-42.9); Hemoglobin 9.9 gm/dl (10.1-14.3); Lymphocytes # (Auto) 1.1 K/mm3 (1.2-5.4); Lymphocytes % (Auto) 13.8 % (13.4-35.0); Mean Corpuscular HGB Conc 31 % (30-34); Mean Corpuscular Volume 73 fl (79-97); Monocytes # (Auto) 1.1 K/mm3 (0.0-0.8); Monocytes % (Auto) 13.7 % (0.0-7.3); Platelet Count 289 K/mm3 (140-440); Red Blood Count 4.38 M/mm3 (3.65-5.03); Red Cell Distribution Width 16.3 % (13.2-15.2)
[2021-12-22 06:31] LABS: Blood Urea Nitrogen 9 mg/dL (7-17); Calcium 7.6 mg/dL (8.4-10.2); Hemolysis Index 3
[2021-12-22 07:12] LABS: BUN/Creatinine Ratio 30
[2021-12-22] MEDS ORDERED: FUROSEMIDE 40 MG/4 ML INJ IV NR (08:00)
[2021-12-22] MEDS: POTASSIUM CHLORIDE 10 MEQ 10 MEQ/100 ML BAG IV SCH ×4 (08:00→12:42)
[2021-12-22] MEDS: levETIRAcetam 500 MG in DEXTROSE 5% IN WATER 100 ML IV SCH ×2 (09:29→22:12)
[2021-12-22] MEDS: FAMOTIDINE 20 MG/2 ML INJ IV SCH ×2 (09:29→21:34)
--- NOTE | 2021-12-22 10:40 | Progress Note ---
Assessment and Plan Assessment and plan: #Acute/subacute ischemic CVA Patient's sister (DOMINIK) endorsed concern for decreased interaction of patient. Sister states patient is more verbal and interactive. Head CT noncontrast (12/21/2021) revealing "acute to subacute appearing infarction in the right ROSEANNA territory; remote right occipital lobe infarction; severe sequela from chronic microvascular disease." Neurology consulted; pending recs. Currently holding aspirin 325 mg daily and atorvastatin 40 mg daily as the patient is NPO. Continue to monitor #Small bowel obstruction Visualized on CT abdomen and pelvis without acute findings. Continue n.p.o. status with NG tube + LIWS. Continue serial KUBs. General surgery consulted; appreciate recs. Clamping of NG tube and monitoring for residuals; if >150 cc, patient will be returned back to low intermittent wall suction. Pending CT abdomen and pelvis with contrast to evaluate for current status of small bowel obstruction. Patient unable to truly verbalize her current clinical status. Continue antiemetics and analgesics as needed. #Non-insulin dependent type II diabetes mellitus - hemoglobin A1c: Unknown - home regimen: Unknown - current regimen: Moderate SSI - blood glucose goal 140-180 while inpatient - continue to monitor #Hypertension #Congestive heart failurestable - home medications: Unknown - current medications: Currently normotensive. Can consider IV Lopressor if patient requires blood pressure control while remaining n.p.o. - SBP goal <160 and DBP goal <90 while inpatient - continue to monitor #History of multiple acute ischemic CVA We will restart aspirin 81 mg daily and atorvastatin 40 mg daily once patient can tolerate p.o. intake. #Seizure history Continue seizure precautions. No current seizure medication in the chart. Continue IV Keppra 500 mg twice daily #Mild protein caloric malnutrition Albumin 3.4 Holding on starting dietary supplementation until patient can tolerate p.o. intake. #Obesity #Weight loss counseling #Exercise counseling - BMI 30.6 - Counseled patient on the importance of weight loss, incorporating exercise, and dietary changes (lean meats, fresh fruits and vegetables, and water intake). Patient expresses understanding. - Time: +15 min #Advanced care planning -Disease education conducted, care plan discussed, diagnoses discussed, prognosis discussed, and patient acknowledges understanding with care plan -Time: +30 min Disposition Plan: Continue medical management Total Time Spent with Patient (Minutes): 45 minutes History Interval history: No acute events overnight. Hospitalist Physical - Constitutional Vitals: Temp Pulse Resp BP Pulse Ox 98.6 F 109 H 18 130/86 96 12/21/21 22:53 12/21/21 22:53 12/21/21 22:53 12/21/21 22:53 12/22/21 10:00 General appearance: Present: no acute distress, well-nourished, obese - EENT Eyes: Present: PERRL, EOM intact ENT: hearing intact, clear oral mucosa, dentition normal, other (NG tube in place and clamped) - Neck Neck: Present: supple, normal ROM - Respiratory Respiratory effort: normal Respiratory: bilateral: diminished - Cardiovascular Rhythm: regular Heart Sounds: Present: S1 & S2 - Extremities Extremities: no ischemia, pulses intact, pulses symmetrical, No edema, normal temperature, normal color Peripheral Pulses: within normal limits - Abdominal General gastrointestinal: soft, non-tender, non-distended, normal bowel sounds - Integumentary Integumentary: Present: clear, warm, dry - Psychiatric Psychiatric: other (Able to fully communicate given current medical conditions) - Neurologic Neurologic: CNII-XII intact, focal deficits (Right-sided weakness) - Allied Health Allied health notes reviewed: nursing Results - Labs CBC & Chem 7: 12/22/21 05:11 12/22/21 05:11 Labs: Laboratory Last Values WBC 8.2 K/mm3 (4.5-11.0) 12/22/21 05:11 RBC 4.38 M/mm3 (3.65-5.03) 12/22/21 05:11 Hgb 9.9 gm/dl (10.1-14.3) L 12/22/21 05:11 Hct 31.8 % (30.3-42.9) 12/22/21 05:11 MCV 73 fl (79-97) L 12/22/21 05:11 MCH 23 pg (28-32) L 12/22/21 05:11 MCHC 31 % (30-34) 12/22/21 05:11 RDW 16.3 % (13.2-15.2) H 12/22/21 05:11 Plt Count 289 K/mm3 (140-440) 12/22/21 05:11 Lymph % (Auto) 13.8 % (13.4-35.0) 12/22/21 05:11 [place] % (Auto) 13.7 % (0.0-7.3) H 12/22/21 05:11 Eos % (Auto) 2.2 % (0.0-4.3) 12/22/21 05:11 Baso % (Auto) 0.1 % (0.0-1.8) 12/22/21 05:11 Lymph # (Auto) 1.1 K/mm3 (1.2-5.4) L 12/22/21 05:11 [place] # (Auto) 1.1 K/mm3 (0.0-0.8) H 12/22/21 05:11 Eos # (Auto) 0.2 K/mm3 (0.0-0.4) 12/22/21 05:11 Baso # (Auto) 0.0 K/mm3 (0.0-0.1) 12/22/21 05:11 Seg Neutrophils % 70.2 % (40.0-70.0) H 12/22/21 05:11 Seg Neutrophils # 5.8 K/mm3 (1.8-7.7) 12/22/21 05:11 VBG pH 7.309 (7.320-7.420) L 12/17/21 18:55 Sodium 143 mmol/L (137-145) 12/22/21 05:11 Potassium 3.3 mmol/L (3.6-5.0) L 12/22/21 05:11 Chloride 104.0 mmol/L (98-107) 12/22/21 05:11 Carbon Dioxide 29 mmol/L (22-30) 12/22/21 05:11 Anion Gap 13 mmol/L 12/22/21 05:11 BUN 9 mg/dL (7-17) 12/22/21 05:11 Creatinine 0.3 mg/dL (0.6-1.2) L 12/22/21 05:11 Estimated GFR > 60 ml/min 12/22/21 05:11 BUN/Creatinine Ratio 30 % 12/22/21 05:11 Glucose 168 mg/dL (65-100) H 12/22/21 05:11 POC Glucose 123 mg/dL (70-105) H 12/22/21 05:43 Calcium 7.6 mg/dL (8.4-10.2) L 12/22/21 05:11 Total Bilirubin 0.90 mg/dL (0.1-1.2) 12/17/21 18:55 AST 18 units/L (5-40) 12/17/21 18:55 ALT 12 units/L (7-56) 12/17/21 18:55 Alkaline Phosphatase 124 units/L (35-129) 12/17/21 18:55 Total Protein 6.2 g/dL (6.3-8.2) L 12/17/21 18:55 Albumin 3.4 g/dL (3.9-5) L 12/17/21 18:55 Albumin/Globulin Ratio 1.2 % 12/17/21 18:55 Lipase 7 units/L (13-60) L 12/17/21 18:55 Urine Color Yellow (Yellow) 12/17/21 22:12 Urine Turbidity Cloudy (Clear) 12/17/21 22:12 Specific [place] (Man) 1.030 (1.003-1.030) 12/17/21 22:12 Ur Protein (Man) 2+ mg/dL (Negative) 12/17/21 22:12 Ur Ketones (Man) Negative (Negative) 12/17/21 22:12 Ur Nitrite (Man) Negative (Negative) 12/17/21 22:12 Urine Bilirubin (Man) Negative (Negative) 12/17/21 22:12 Leukocyte Esterase (Man) Small (Negative) 12/17/21 22:12 Urine WBC (Auto) < 1.0 /HPF (0.0-6.0) 12/17/21 22:12 Urine RBC (Auto) 71.0 /HPF (0.0-6.0) 12/17/21 22:12 U Epithel Cells (Auto) 1.0 /HPF (0-13.0) 12/17/21 22:12 Urine Bacteria (Auto) 4+ /HPF (Negative) 12/17/21 22:12 Urine RBC (Manual) 3+ (Negative) 12/17/21 22:12 Urine WBC Clumps 3+ /HPF 12/17/21 22:12 Urine Mucus Few /HPF 12/17/21 22:12 Urine Yeast (Budding) 3+ /HPF 12/17/21 22:12 [place]/IV: Voiding Method Incontinent Active Medications - Current Medications Current Medications: Generic Name Dose Route Start Last Admin Trade Name Freq PRN Reason Stop Dose Admin Acetaminophen 650 mg 12/17/21 23:23 Acetaminophen 325 Mg Tab PO Q4H PRN Pain MILD(1-3)/Fever >100.5/HOLMAN Albuterol 2.5 mg 12/17/21 23:23 Albuterol 2.5 Mg/3 Ml Nebu IH Q4HRT PRN Shortness Of Breath Dextrose 50 ml 12/17/21 23:24 Dextrose 50% In Water (25gm) 50 Ml Syringe IV Q30MIN PRN Hypoglycemia Protocol Famotidine 20 mg 12/18/21 10:00 12/22/21 09:29 Famotidine 20 Mg/2 Ml Inj IV 20 mg BID SHANNON Administration Furosemide 20 mg 12/22/21 08:00 12/22/21 08:00 Furosemide 40 Mg/4 Ml Inj IV 12/22/21 12:00 20 mg ONCE@0800 NR Administration Levetiracetam 500 mg/ Dextrose 105 mls @ 400 mls/hr 12/18/21 22:00 12/22/21 09:29 IV 400 mls/hr Q12HR SHANNON Administration Potassium Chloride 10 meq in 100 mls @ 100 mls/hr 12/22/21 09:00 12/22/21 09:24 Kcl 10meq/100ml IV 12/22/21 12:59 100 mls/hr Q1H SHANNON Administration Insulin Human Lispro 0 unit 12/18/21 00:00 12/22/21 06:53 Insulin Lispro 100 Unit/Ml SUB-Q Not Given Q6HR SHANNON Protocol Morphine Sulfate 2 mg 12/17/21 23:23 Morphine 2 Mg/1 Ml Inj IV Q4H PRN Pain, Moderate (4-6) Morphine Sulfate 4 mg 12/17/21 23:23 Morphine 4 Mg/1 Ml Inj IV Q4H PRN Pain , Severe (7-10) Ondansetron HCl 4 mg 12/17/21 23:23 Ondansetron 4 Mg/2 Ml Inj IV Q8H PRN Nausea And Vomiting Sodium Chloride 10 ml 12/18/21 10:00 12/22/21 09:29 Sodium Chloride 0.9% 10 Ml Flush Syringe IV 10 ml BID SHANNON Administration Sodium Chloride 10 ml 12/17/21 23:23 12/18/21 02:51 Sodium Chloride 0.9% 10 Ml Flush Syringe IV 10 ml PRN PRN Administration LINE FLUSH Nutrition/Malnutrition Assess - Dietary Evaluation Nutrition/Malnutrition Findings: Nutrition Notes Start: 12/18/21 12:33 Freq: Status: Active Protocol: Document 12/21/21 15:37 JOS (Rec: 12/21/21 15:38 JOS [id number]) Nutrition Notes Initial or Follow up Brief Note Current Diet NPO Labs/Tests K 3.3 Pertinent Medications 10mEq KCl at 100ml/hr x 4 bags Subjective/Other Information Pt remains NPO; NGT clamped yesterday. BM x 1 on yesterday and x3 on 12/19. Nutrition Intervention Follow-Up By: 12/23/21 Additional Comments F/U: diet advancement, POC
--- NOTE | 2021-12-22 16:13 | Consultation ---
History of Present Illness Consult date: 12/22/21 Reason for Consult: CVA History of present illness: Called to evalute the patient for Possible CVA . Abnormal CT Head. Past History Past Medical History: diabetes, heart failure, hypertension, renal failure, seizures, stroke, other (Anxiety) Past Surgical History: No surgical history Social history: no significant social history Family history: no significant family history Medications and Allergies Allergies Allergy/AdvReac Type Severity Reaction Status Date / Time clopidogrel [From Plavix] Allergy Unknown Verified 12/17/21 19:47 lisinopril Allergy Unknown Verified 12/17/21 19:47 metformin Allergy Unknown Verified 12/17/21 19:47 Home Medications Medication Instructions Recorded Confirmed Last Taken Type Bisacodyl [Women's Gentle Laxative] 5 mg PO BID 12/22/21 12/22/21 Unknown History Divalproex Sodium [Depakote] 500 mg PO DAILY 12/22/21 12/22/21 Unknown History Famotidine [Acid-Pep] 20 mg PO BID 12/22/21 12/22/21 Unknown History Furosemide [Lasix] 40 mg PO DAILY 12/22/21 12/22/21 Unknown History Gabapentin [Neurontin] 300 mg PO Q8HR 12/22/21 12/22/21 Unknown History Hydrocortisone 1% [Hydrocortisone 1 applicatio TP DAILY PRN 12/22/21 12/22/21 Unknown History 1% CREAM] LORazepam [Ativan INJ] 1 mg IM Q6HR PRN 12/22/21 12/22/21 Unknown History Linaclotide [Linzess] 145 mcg PO QDAY 12/22/21 12/22/21 Unknown History Loperamide HCl [Imodium A-D] 1 caplet PO DAILY PRN 12/22/21 12/22/21 Unknown History Phenytoin [Dilantin] 100 mg PO BID 12/22/21 12/22/21 Unknown History Rivaroxaban [Xarelto] 2.5 mg PO BID 12/22/21 12/22/21 Unknown History Scopolamine [Transderm-Scop] 1 each TD Q3D 12/22/21 12/22/21 Unknown History Sennosides [Senna] 8.6 mg PO HS 12/22/21 12/22/21 Unknown History Sertraline HCl [Zoloft] 1.5 tab PO DAILY 12/22/21 12/22/21 Unknown History Simvastatin 20 mg PO QPM 12/22/21 12/22/21 Unknown History Trazodone HCl 75 mg PO HS 12/22/21 12/22/21 Unknown History busPIRone [Buspar] 5 mg PO BID 12/22/21 12/22/21 Unknown History Active Meds: Active Medications Acetaminophen (Acetaminophen 325 Mg Tab) 650 mg PO Q4H PRN PRN Reason: Pain MILD(1-3)/Fever >100.5/HOLMAN Albuterol (Albuterol 2.5 Mg/3 Ml Nebu) 2.5 mg IH Q4HRT PRN PRN Reason: Shortness Of Breath Albuterol (Albuterol 2.5 Mg/3 Ml Nebu) 2.5 mg IH QIDRT [facility] Dextrose (Dextrose 50% In Water (25gm) 50 Ml Syringe) 50 ml IV Q30MIN PRN; Protocol PRN Reason: Hypoglycemia Famotidine (Famotidine 20 Mg/2 Ml Inj) 20 mg IV BID [facility] Last Admin: 12/22/21 09:29 Dose: 20 mg Levetiracetam 500 mg/ Dextrose 105 mls @ 400 mls/hr IV Q12HR [facility] Last Admin: 12/22/21 09:29 Dose: 400 mls/hr Insulin Human Lispro (Insulin Lispro 100 Unit/Ml) 0 unit SUB-Q Q6HR [facility]; Protocol Last Admin: 12/22/21 06:53 Dose: Not Given Morphine Sulfate (Morphine 2 Mg/1 Ml Inj) 2 mg IV Q4H PRN PRN Reason: Pain, Moderate (4-6) Morphine Sulfate (Morphine 4 Mg/1 Ml Inj) 4 mg IV Q4H PRN PRN Reason: Pain , Severe (7-10) Ondansetron HCl (Ondansetron 4 Mg/2 Ml Inj) 4 mg IV Q8H PRN PRN Reason: Nausea And Vomiting Sodium Chloride (Sodium Chloride 0.9% 10 Ml Flush Syringe) 10 ml IV BID [facility] Last Admin: 12/22/21 09:29 Dose: 10 ml Sodium Chloride (Sodium Chloride 0.9% 10 Ml Flush Syringe) 10 ml IV PRN PRN PRN Reason: LINE FLUSH Last Admin: 12/18/21 02:51 Dose: 10 ml Physical Examination - Vital Signs Vital Signs: Vital Signs Pulse Resp BP Pulse Ox 115 H 20 100/60 98 12/17/21 18:13 12/17/21 18:13 12/17/21 18:13 12/17/21 18:13 - Physical Exam Narrative exam: The patient is alert , non verbal there is old hemipareis . gait is not tested. Results - Laboratory Findings CBC and BMP: 12/22/21 05:11 12/22/21 05:11 Abnormal Lab Findings: Abnormal Labs 12/17/21 12/17/21 12/17/21 18:55 18:55 18:55 WBC Hgb MCV 72 L MCH 24 L RDW 16.6 H Lymph % (Auto) 9.1 L [place] % (Auto) 12.0 H Lymph # (Auto) 0.9 L [place] # (Auto) 1.2 H Seg Neutrophils % 78.4 H Seg Neutrophils # VBG pH 7.309 L Sodium Potassium BUN 37 H Creatinine 1.6 H Glucose 113 H POC Glucose Calcium 8.2 L Total Protein 6.2 L Albumin 3.4 L Lipase 7 L 12/18/21 12/18/21 12/18/21 02:34 05:37 08:51 WBC 11.1 H Hgb MCV 72 L MCH 23 L RDW 16.4 H Lymph % (Auto) 6.8 L [place] % (Auto) 12.3 H Lymph # (Auto) 0.8 L [place] # (Auto) 1.4 H Seg Neutrophils % 80.5 H Seg Neutrophils # 8.9 H VBG pH Sodium Potassium BUN Creatinine Glucose POC Glucose 131 H 124 H Calcium Total Protein Albumin Lipase 12/18/21 12/18/21 12/18/21 08:51 11:18 21:43 WBC Hgb MCV MCH RDW Lymph % (Auto) [place] % (Auto) Lymph # (Auto) [place] # (Auto) Seg Neutrophils % Seg Neutrophils # VBG pH Sodium Potassium BUN 42 H Creatinine 1.5 H Glucose 101 H POC Glucose 106 H 112 H Calcium 8.0 L Total Protein Albumin Lipase 12/19/21 12/19/21 12/20/21 06:02 23:43 06:34 WBC Hgb MCV MCH RDW Lymph % (Auto) [place] % (Auto) Lymph # (Auto) [place] # (Auto) Seg Neutrophils % Seg Neutrophils # VBG pH Sodium 146 H Potassium 3.5 L BUN 40 H Creatinine Glucose 121 H POC Glucose 153 H 156 H Calcium 7.6 L Total Protein Albumin Lipase 12/20/21 12/20/21 12/20/21 07:08 07:08 11:17 WBC 13.4 H Hgb 9.7 L MCV 72 L MCH 22 L RDW 16.4 H Lymph % (Auto) 7.4 L [place] % (Auto) 10.1 H Lymph # (Auto) 1.0 L [place] # (Auto) 1.4 H Seg Neutrophils % 81.9 H Seg Neutrophils # 11.0 H VBG pH Sodium Potassium 3.5 L BUN 24 H Creatinine 0.4 L Glucose 142 H POC Glucose 166 H Calcium 7.9 L Total Protein Albumin Lipase 12/20/21 12/21/21 12/21/21 23:43 05:42 06:41 WBC Hgb MCV 72 L MCH 23 L RDW 16.1 H Lymph % (Auto) 10.9 L [place] % (Auto) 14.0 H Lymph # (Auto) 1.1 L [place] # (Auto) 1.5 H Seg Neutrophils % 74.0 H Seg Neutrophils # VBG pH Sodium Potassium BUN Creatinine Glucose POC Glucose 142 H 130 H Calcium Total Protein Albumin Lipase 12/21/21 12/21/21 12/22/21 06:41 23:18 05:11 WBC Hgb 9.9 L MCV 73 L MCH 23 L RDW 16.3 H Lymph % (Auto) [place] % (Auto) 13.7 H Lymph # (Auto) 1.1 L [place] # (Auto) 1.1 H Seg Neutrophils % 70.2 H Seg Neutrophils # VBG pH Sodium Potassium 3.3 L BUN Creatinine 0.3 L Glucose 137 H POC Glucose 124 H Calcium 7.9 L Total Protein Albumin Lipase 12/22/21 12/22/21 05:11 05:43 WBC Hgb MCV MCH RDW Lymph % (Auto) [place] % (Auto) Lymph # (Auto) [place] # (Auto) Seg Neutrophils % Seg Neutrophils # VBG pH Sodium Potassium 3.3 L BUN Creatinine 0.3 L Glucose 168 H POC Glucose 123 H Calcium 7.6 L Total Protein Albumin Lipase Assessment and Plan 1. New CVA based upon the CT stongly recommed MRI Brain . 2. Patient has ? small bowel obstruction . 3. If surgery is necessary high risk . 4. Strongly Recommend MRI Brain. 5. Continue Current Plan 6. Very High Stroke Risk Call back with questions . Dr. Fernandes
[2021-12-22] MEDS: ALBUTEROL 2.5 MG/3 ML NEBU IH SCH (20:10)
[2021-12-23 06:55] LABS: Basophils % (Auto) 0.2 % (0.0-1.8); Eosinophils # (Auto) 0.2 K/mm3 (0.0-0.4); Eosinophils % (Auto) 1.7 % (0.0-4.3); Hematocrit 33.5 % (30.3-42.9); Lymphocytes # (Auto) 1.6 K/mm3 (1.2-5.4); Lymphocytes % (Auto) 15.7 % (13.4-35.0); Mean Corpuscular HGB Conc 33 % (30-34); Mean Corpuscular Volume 71 fl (79-97); Monocytes # (Auto) 1.2 K/mm3 (0.0-0.8); Monocytes % (Auto) 11.4 % (0.0-7.3); Platelet Count 282 K/mm3 (140-440); Red Blood Count 4.73 M/mm3 (3.65-5.03); Red Cell Distribution Width 15.9 % (13.2-15.2)
[2021-12-23 07:12] LABS: Blood Urea Nitrogen 9 mg/dL (7-17); Calcium 7.9 mg/dL (8.4-10.2); Hemolysis Index 2
[2021-12-23 07:21] LABS: BUN/Creatinine Ratio 30
[2021-12-23] MEDS: ALBUTEROL 2.5 MG/3 ML NEBU IH SCH ×4 (10:07→19:48)
[2021-12-23] MEDS: levETIRAcetam 500 MG in DEXTROSE 5% IN WATER 100 ML IV SCH ×2 (10:14→21:31)
[2021-12-23] MEDS: INSULIN LISPRO 100 UNIT/ML SUB-Q SCH ×3 (10:14→18:09)
[2021-12-23] MEDS: FAMOTIDINE 20 MG/2 ML INJ IV SCH ×2 (10:14→21:31)
[2021-12-23] MEDS: ASPIRIN 300 MG RECT SUPP PR SCH (10:15)
--- NOTE | 2021-12-23 13:50 | Progress Note ---
Assessment and Plan 51-year-old female with history of CVA, diabetes, CHF, hypertension, seizure was brought to the emergency room because of abdominal pain. Patient states she has had intermittent cramping abdominal pain for the past 4 days. Patient admi ts to intractable nausea vomiting since yesterday. Patient describes the pain as cramping and intermittent in nature. Patient states she has not had a bowel movement in 2 months. The patient is a resident at [facility] and a KUB performed at that facility today that was read as "probable partial small bowel obstruction. Pt with better conversations with family. Positive bm. zara clamped ng for 1-2 days. Will dc ng now and advance to full liquid diet.SBO apparently resolved. Subjective Date of service: 12/23/21 Patient Reports: Positive: feels better Narrative: Pt with better conversations with family. Positive bm. zara clamped ng for 1-2 days. Will dc ng now and advance to full liquid diet.SBO apparently resolved. Objective Vital Signs - 12hr 12/23/21 12/23/21 12/23/21 04:59 08:00 12:00 Temperature 98.0 F Pulse Rate 116 H Pulse Rate [ 109 H 88 Anterior Bilateral Throughout] Respiratory 18 Rate Respiratory 23 15 Rate [Anterior Bilateral Throughout] Blood Pressure 131/88 O2 Sat by Pulse 98 Oximetry 12/23/21 12:16 Temperature 98.4 F Pulse Rate 107 H Pulse Rate [ Anterior Bilateral Throughout] Respiratory 24 Rate Respiratory Rate [Anterior Bilateral Throughout] Blood Pressure 141/85 O2 Sat by Pulse 98 Oximetry - Labs 12/23/21 06:36 12/23/21 06:36 Diabetes panel 12/23/21 Range/Units 06:36 Sodium 144 (137-145) mmol/L Potassium 3.8 (3.6-5.0) mmol/L Chloride 105.6 (98-107) mmol/L Carbon Dioxide 30 (22-30) mmol/L BUN 9 (7-17) mg/dL Creatinine 0.3 L (0.6-1.2) mg/dL Glucose 90 (65-100) mg/dL Calcium 7.9 L (8.4-10.2) mg/dL Calcium panel 12/23/21 Range/Units 06:36 Calcium 7.9 L (8.4-10.2) mg/dL Pituitary panel 12/23/21 Range/Units 06:36 Sodium 144 (137-145) mmol/L Potassium 3.8 (3.6-5.0) mmol/L Chloride 105.6 (98-107) mmol/L Carbon Dioxide 30 (22-30) mmol/L BUN 9 (7-17) mg/dL Creatinine 0.3 L (0.6-1.2) mg/dL Glucose 90 (65-100) mg/dL Calcium 7.9 L (8.4-10.2) mg/dL Adrenal panel 12/23/21 Range/Units 06:36 Sodium 144 (137-145) mmol/L Potassium 3.8 (3.6-5.0) mmol/L Chloride 105.6 (98-107) mmol/L Carbon Dioxide 30 (22-30) mmol/L BUN 9 (7-17) mg/dL Creatinine 0.3 L (0.6-1.2) mg/dL Glucose 90 (65-100) mg/dL Calcium 7.9 L (8.4-10.2) mg/dL
--- NOTE | 2021-12-23 18:12 | Progress Note ---
Assessment and Plan Assessment and plan: 51-year-old female with history of multiple strokes starting 10 years ago with chronic dense right hemiplegia and bedridden living in a residential, diabetes, CHF, hypertension, seizure was brought to the emergency room because of constipation since in to 2 and abdominal pain. Patient states she has had intermittent cramping abdominal pain for the past 4 days. Patient admits to intractable nausea vomiting since yesterday. Patient describes the pain as cramping and intermittent in nature. Patient states she has not had a bowel movement since 11/26/2021.. The patient is a resident at [facility] and a KUB performed at that facility today that was read as "probable partial small bowel obstruction. CT recommended." In the emergency room initial CT scan of the abdomen shows evidence of a small bowel obstruction without other acute finding. The case was discussed with on-c all surgeon Dr. Jamison and patient admitted #Acute ischemic right frontal CVA in ROSEANNA territory with mass-effect and encephalopathy Family reports multiple CVAs starting 10 years ago with a dense right hemiplegia and bedridden. Patient's sister (MPOA) endorsed concern for decreased interaction of patient. Sister states patient is more verbal and interactive but with very low speech output. Head CT noncontrast (12/21/2021) revealing "acute to subacute appearing infarction in the right ROSEANNA territory; remote right occipital lobe infarction; severe sequela from chronic microvascular disease." Neurology consulted; pending recs. Ordered rectal aspirin and currently holding atorvastatin 40 mg daily as the patient is NPO. Continue to monitor #Small bowel obstruction with constipation since 11/26/[address] abdomen and pelvis without acute findings at the time of admission Placed on n.p.o. status with NG tube + LIWS and serial KUBs. General surgery consulted; appreciate recs. Clamping of NG tube and monitoring for residuals; if >150 cc, patient will be returned back to low intermittent wall suction. Follow-up CT abdomen and pelvis showed resolution of SBO. Patient is having BMs and NG tube clamped for 2 days followed by removal on 12/23 as per general surgery. As per nursing, patient unable to swallow after NG tube removal on 12/23, made n.p.o. and requested ST evaluation. Dysphagia may be related to acute CVA. #Non-insulin dependent type II diabetes mellitus - hemoglobin A1c: Unknown - home regimen: Unknown - current regimen: Moderate SSI - blood glucose goal 140-180 while inpatient - continue to monitor #Hypertension #Congestive heart failurestable - home medications: Unknown - current medications: Currently normotensive. Can consider IV Lopressor if patient requires blood pressure control while remaining n.p.o. - SBP goal <160 and DBP goal <90 while inpatient - continue to monitor #Seizure history Continue seizure precautions. No current seizure medication in the chart. Continue IV Keppra 500 mg twice daily #Mild protein caloric malnutrition Albumin 3.4 Holding on starting dietary supplementation until patient can tolerate p.o. intake. #Obesity #Weight loss counseling #Exercise counseling - BMI 30.6 - Counseled patient on the importance of weight loss, incorporating exercise, and dietary changes (lean meats, fresh fruits and vegetables, and water intake). Patient expresses understanding. - Time: +15 min #Advanced care planning Discussed with 2 sisters at bedside. Discussed with the nursing staff. History Interval history: 2 sisters present at bedside. They report a new left-sided weakness, drowsiness and poor speech output. Patient is able to answer simple questions with appropriate lip movements with whispering. Sisters report having BM since yesterday. No abdominal distention. NG tube clamped since 2 days or so. As per general surgery instructions, to be removed today but patient not able to swallow oral feeds as per nursing report. N.p.o. ordered and consulted ST for evaluation. Hospitalist Physical - Constitutional Vitals: Temp Pulse Resp BP Pulse Ox 98.4 F 91 H 17 141/85 98 12/23/21 12:16 12/23/21 16:00 12/23/21 16:00 12/23/21 12:16 12/23/21 12:16 General appearance: Present: no acute distress, obese - EENT Eyes: Present: PERRL, EOM intact ENT: hearing intact - Neck Neck: Present: supple - Respiratory Respiratory effort: normal Respiratory: bilateral: diminished - Cardiovascular Rhythm: other (Tachycardia) - Extremities Extremity abnormal: other (Puffiness of right arm/leg) - Abdominal General gastrointestinal: soft, non-tender, other (Bowel sounds hypoactive) - Integumentary Integumentary: Absent: rash - Neurologic Neurologic: other (Awake, sluggish, answers appropriately to sisters simple questions but barely audible but appropriate lip movements. Mild left lower facial weakness noted. Strength in right upper/lower extremities 0/5, chronic. Left upper extremity 2/5, stable. Left lower extremity able to move toes only.) Results - Labs CBC & Chem 7: 12/23/21 06:36 12/23/21 06:36 Labs: Laboratory Last Values WBC 10.1 K/mm3 (4.5-11.0) 12/23/21 06:36 RBC 4.73 M/mm3 (3.65-5.03) 12/23/21 06:36 Hgb 11.0 gm/dl (10.1-14.3) 12/23/21 06:36 Hct 33.5 % (30.3-42.9) 12/23/21 06:36 MCV 71 fl (79-97) L 12/23/21 06:36 MCH 23 pg (28-32) L 12/23/21 06:36 MCHC 33 % (30-34) 12/23/21 06:36 RDW 15.9 % (13.2-15.2) H 12/23/21 06:36 Plt Count 282 K/mm3 (140-440) 12/23/21 06:36 Lymph % (Auto) 15.7 % (13.4-35.0) 12/23/21 06:36 [place] % (Auto) 11.4 % (0.0-7.3) H 12/23/21 06:36 Eos % (Auto) 1.7 % (0.0-4.3) 12/23/21 06:36 Baso % (Auto) 0.2 % (0.0-1.8) 12/23/21 06:36 Lymph # (Auto) 1.6 K/mm3 (1.2-5.4) 12/23/21 06:36 [place] # (Auto) 1.2 K/mm3 (0.0-0.8) H 12/23/21 06:36 Eos # (Auto) 0.2 K/mm3 (0.0-0.4) 12/23/21 06:36 Baso # (Auto) 0.0 K/mm3 (0.0-0.1) 12/23/21 06:36 Seg Neutrophils % 71.0 % (40.0-70.0) H 12/23/21 06:36 Seg Neutrophils # 7.2 K/mm3 (1.8-7.7) 12/23/21 06:36 VBG pH 7.309 (7.320-7.420) L 12/17/21 18:55 Sodium 144 mmol/L (137-145) 12/23/21 06:36 Potassium 3.8 mmol/L (3.6-5.0) 12/23/21 06:36 Chloride 105.6 mmol/L (98-107) 12/23/21 06:36 Carbon Dioxide 30 mmol/L (22-30) 12/23/21 06:36 Anion Gap 12 mmol/L 12/23/21 06:36 BUN 9 mg/dL (7-17) 12/23/21 06:36 Creatinine 0.3 mg/dL (0.6-1.2) L 12/23/21 06:36 Estimated GFR > 60 ml/min 12/23/21 06:36 BUN/Creatinine Ratio 30 % 12/23/21 06:36 Glucose 90 mg/dL (65-100) 12/23/21 06:36 POC Glucose 86 mg/dL (70-105) 12/23/21 05:36 Calcium 7.9 mg/dL (8.4-10.2) L 12/23/21 06:36 Total Bilirubin 0.90 mg/dL (0.1-1.2) 12/17/21 18:55 AST 18 units/L (5-40) 12/17/21 18:55 ALT 12 units/L (7-56) 12/17/21 18:55 Alkaline Phosphatase 124 units/L (35-129) 12/17/21 18:55 Total Protein 6.2 g/dL (6.3-8.2) L 12/17/21 18:55 Albumin 3.4 g/dL (3.9-5) L 12/17/21 18:55 Albumin/Globulin Ratio 1.2 % 12/17/21 18:55 Lipase 7 units/L (13-60) L 12/17/21 18:55 Urine Color Yellow (Yellow) 12/17/21 22:12 Urine Turbidity Cloudy (Clear) 12/17/21 22:12 Specific [place] (Man) 1.030 (1.003-1.030) 12/17/21 22:12 Ur Protein (Man) 2+ mg/dL (Negative) 12/17/21 22:12 Ur Ketones (Man) Negative (Negative) 12/17/21 22:12 Ur Nitrite (Man) Negative (Negative) 12/17/21 22:12 Urine Bilirubin (Man) Negative (Negative) 12/17/21 22:12 Leukocyte Esterase (Man) Small (Negative) 12/17/21 22:12 Urine WBC (Auto) < 1.0 /HPF (0.0-6.0) 12/17/21 22:12 Urine RBC (Auto) 71.0 /HPF (0.0-6.0) 12/17/21 22:12 U Epithel Cells (Auto) 1.0 /HPF (0-13.0) 12/17/21 22:12 Urine Bacteria (Auto) 4+ /HPF (Negative) 12/17/21 22:12 Urine RBC (Manual) 3+ (Negative) 12/17/21 22:12 Urine WBC Clumps 3+ /HPF 12/17/21 22:12 Urine Mucus Few /HPF 12/17/21 22:12 Urine Yeast (Budding) 3+ /HPF 12/17/21 22:12 [place]/IV: Voiding Method Incontinent Active Medications - Current Medications Current Medications: Generic Name Dose Route Start Last Admin Trade Name Freq PRN Reason Stop Dose Admin Acetaminophen 650 mg 12/17/21 23:23 Acetaminophen 325 Mg Tab PO Q4H PRN Pain MILD(1-3)/Fever >100.5/HOLMAN Albuterol 2.5 mg 12/17/21 23:23 Albuterol 2.5 Mg/3 Ml Nebu IH Q4HRT PRN Shortness Of Breath Albuterol 2.5 mg 12/22/21 20:00 12/23/21 17:01 Albuterol 2.5 Mg/3 Ml Nebu IH 2.5 mg QIDRT SHANNON Administration Aspirin 300 mg 12/23/21 10:00 12/23/21 10:15 Aspirin 300 Mg Rect Supp OR 300 mg QDAY SHANNON Administration Dextrose 50 ml 12/17/21 23:24 Dextrose 50% In Water (25gm) 50 Ml Syringe IV Q30MIN PRN Hypoglycemia Protocol Famotidine 20 mg 12/18/21 10:00 12/23/21 10:14 Famotidine 20 Mg/2 Ml Inj IV 20 mg BID SHANNON Administration Levetiracetam 500 mg/ Dextrose 105 mls @ 400 mls/hr 12/18/21 22:00 12/23/21 10:14 IV 400 mls/hr Q12HR SHANNON Administration Insulin Human Lispro 0 unit 12/18/21 00:00 12/23/21 18:09 Insulin Lispro 100 Unit/Ml SUB-Q Not Given Q6HR [facility] Protocol Morphine Sulfate 2 mg 12/17/21 23:23 12/23/21 18:06 Morphine 2 Mg/1 Ml Inj IV 2 mg Q4H PRN Administration Pain, Moderate (4-6) Morphine Sulfate 4 mg 12/17/21 23:23 Morphine 4 Mg/1 Ml Inj IV Q4H PRN Pain , Severe (7-10) Ondansetron HCl 4 mg 12/17/21 23:23 Ondansetron 4 Mg/2 Ml Inj IV Q8H PRN Nausea And Vomiting Sodium Chloride 10 ml 12/18/21 10:00 12/23/21 10:14 Sodium Chloride 0.9% 10 Ml Flush Syringe IV 10 ml BID SHANNON Administration Sodium Chloride 10 ml 12/17/21 23:23 12/18/21 02:51 Sodium Chloride 0.9% 10 Ml Flush Syringe IV 10 ml PRN PRN Administration LINE FLUSH Nutrition/Malnutrition Assess - Dietary Evaluation Nutrition/Malnutrition Findings: Nutrition Notes Start: 12/18/21 12:33 Freq: Status: Active Protocol: Document 12/23/21 16:43 CM (Rec: 12/23/21 16:54 CM [id number]) Co-Sign 12/23/21 16:43 WW Nutrition Notes Initial or Follow up Reassessment Current Diagnosis Diabetes,Hypertension,Heart Failure,Stroke Current Diet NPO Labs/Tests Reviewed Pertinent Medications Reviewed Height 5 ft 5 in Weight 86 kg [place] Body Weight (kg) 56.81 BMI 31.5 Weight Status Obese Subjective/Other Information RD follow-up per protocol. 0% PO intake since 12/18 per ADL notes. Daughter and sister verify no PO intake since 12/15 - 8 days. Nutrition-focused physical assessment performed indicating moderate muscle wasting - indicative of moderate malnutrition. Pt needs assistance during meals d/t CVA residuals - unable to feed herself. Abdominal pain noted per physical assessment. Previous ulcers healed on legs - no concern at this time. Burn Absent Trauma Absent GI Symptoms Other Food Allergy No Skin Integrity/Comment Redness/Dry (Efren 9) Current % PO Negligible Minimum of two criteria Yes Energy Intake (severe) < or equal to 50% Estimated Energy Requirement > or equal to 5 days Muscle Mass Moderate Depletion (severe) #1 Nutrition Diagnosis Malnutrition Etiology Abdominal pain As Evidenced by Signs and Symptoms NPO throughout LOS, 8 days <50 % energy/protein needs consumed and moderate muscle wasting (temples, acromion, clavicle). Is patient on ventilator? No Is Patient Ambulatory and/or Out of Bed No REE-([facility]-confined to bed) 1769.016 Calculation Used for Recommendations [facility] Additional Notes Protein: 1.2-1.5g/kg AdjBW; 86 -107g PRO q day Fluid: 1000-1500mL q day or per MD. Nutrition Intervention Change Diet Order: Pt diet to advance to cardiac/ consistent carbohydrate diet within 24 hours. Add Supplement/Snack (indicate name/kcal Glucerna BID (Chocolate) /protein ) Provides kCal: 440 Provides Protein (gm) 20 Goal #1 Pt diet to advance within next 24 hours Goal #2 Pt to maintain current wt status within 2.5% during LOS Follow-Up By: 12/25/21 Additional Comments Monitor diet advancement, weight status, and GI symptoms .
[2021-12-24] MEDS: INSULIN LISPRO 100 UNIT/ML SUB-Q SCH ×3 (00:09→12:16)
[2021-12-24 06:12] LABS: Alanine Aminotransferase 8 units/L (7-56); Albumin 3.1 g/dL (3.9-5); Blood Urea Nitrogen 9 mg/dL (7-17); Hemolysis Index 17
[2021-12-24 06:22] LABS: BUN/Creatinine Ratio 23
[2021-12-24] MEDS: ASPIRIN 300 MG RECT SUPP PR SCH (09:39)
[2021-12-24] MEDS: FAMOTIDINE 20 MG/2 ML INJ IV SCH (09:39)
[2021-12-24] MEDS: levETIRAcetam 500 MG in DEXTROSE 5% IN WATER 100 ML IV SCH (09:39)
[2021-12-24] MEDS: ALBUTEROL 2.5 MG/3 ML NEBU IH SCH ×4 (09:51→19:55)
[2021-12-24] MEDS ORDERED: LORazepam 2 MG/ML VIAL IV ONE (11:02)
--- NOTE | 2021-12-24 12:15 | Magnetic Resonance Report ---
MR brain wo con INDICATION / CLINICAL INFORMATION: 51 years Female; Acute stroke symptoms, Patient medicated prior to mri and patient continued to move and code called of patient., Best possible exam.. TECHNIQUE: Multiplanar, multisequence MR images of the brain were obtained. Motion artifact COMPARISON: CT-12/21/2021; MRI-11/05/2011 FINDINGS: BRAIN / INTRACRANIAL CONTENTS: Acute/subacute ischemic changes seen in the superior frontal gyral reg ion on the right, posteriorly and superiorly, extending into the paracentral lobule, which involves t he precentral gyrus (motor cortex). Branch ROSEANNA infarct suspected. No definitive signs of hemorrhagic transformation. Multiple, old, branch infarcts are seen in virtually all vascular territories of the cerebellar hemis pheres, extending into the left inferolateral anita. Prominent, old, branch [employer] infarct seen on the ri ght, positioned to affect calcarine cortex. Multiple lacunar infarcts seen in the thalamic regions-left greater than right. Mild to moderate, diffuse cerebral and cerebellar atrophy. There are moderate to marked, somewhat confluent areas of increased signal intensity on FLAIR imaging in the white matter of the cerebral hemispheres. These are nonspecific findings and may be related t o microangiopathy (hypertension, diabetes, atherosclerosis), given the patient's age. Otherwise, no acute ischemia, acute hemorrhage, or hydrocephalus. CRANIOCERVICAL JUNCTION: No significant abnormality. VASCULAR FLOW-VOIDS: Isointense T2 signal seen in the nondominant right vertebral artery, which could represent slow or absent flow. ORBITS: No significant abnormality of visualized orbits. SINUSES / MASTOIDS: Mild to moderate mucosal thickening in the ethmoids on the left, as well as the l eft maxillary antrum. ADDITIONAL FINDINGS: None. IMPRESSION: 1. Acute/early subacute ischemic changes seen in the right ROSEANNA territory, as described above. Signer Name: Valente Hartley MD, III Signed: 12/24/2021 12:11 PM Workstation Name: [employer]
--- NOTE | 2021-12-24 12:29 | Consultation ---
History of Present Illness Consult date: 12/24/21 Requesting physician: VIRGINIA BRUNER Reason for consult: other History of present illness: PULMONARY/CCM CONSULT NOTE (Full dictation # [id number]) Please see dictated notes for full details Past History Past Medical History: diabetes, heart failure, hypertension, renal failure, seizures, stroke, other (Anxiety) Past Surgical History: No surgical history Social history: no significant social history Family history: no significant family history Medications and Allergies Allergies Allergy/AdvReac Type Severity Reaction Status Date / Time clopidogrel [From Plavix] Allergy Unknown Verified 12/17/21 19:47 lisinopril Allergy Unknown Verified 12/17/21 19:47 metformin Allergy Unknown Verified 12/17/21 19:47 Home Medications Medication Instructions Recorded Confirmed Last Taken Type Bisacodyl [Women's Gentle Laxative] 5 mg PO BID 12/22/21 12/22/21 Unknown History Divalproex Sodium [Depakote] 500 mg PO DAILY 12/22/21 12/22/21 Unknown History Famotidine [Acid-Pep] 20 mg PO BID 12/22/21 12/22/21 Unknown History Furosemide [Lasix] 40 mg PO DAILY 12/22/21 12/22/21 Unknown History Gabapentin [Neurontin] 300 mg PO Q8HR 12/22/21 12/22/21 Unknown History Hydrocortisone 1% [Hydrocortisone 1 applicatio TP DAILY PRN 12/22/21 12/22/21 Unknown History 1% CREAM] LORazepam [Ativan INJ] 1 mg IM Q6HR PRN 12/22/21 12/22/21 Unknown History Linaclotide [Linzess] 145 mcg PO QDAY 12/22/21 12/22/21 Unknown History Loperamide HCl [Imodium A-D] 1 caplet PO DAILY PRN 12/22/21 12/22/21 Unknown History Phenytoin [Dilantin] 100 mg PO BID 12/22/21 12/22/21 Unknown History Rivaroxaban [Xarelto] 2.5 mg PO BID 12/22/21 12/22/21 Unknown History Scopolamine [Transderm-Scop] 1 each TD Q3D 12/22/21 12/22/21 Unknown History Sennosides [Senna] 8.6 mg PO HS 12/22/21 12/22/21 Unknown History Sertraline HCl [Zoloft] 1.5 tab PO DAILY 12/22/21 12/22/21 Unknown History Simvastatin 20 mg PO QPM 12/22/21 12/22/21 Unknown History Trazodone HCl 75 mg PO HS 12/22/21 12/22/21 Unknown History busPIRone [Buspar] 5 mg PO BID 12/22/21 12/22/21 Unknown History Active Meds: Active Medications Acetaminophen (Acetaminophen 325 Mg Tab) 650 mg PO Q4H PRN PRN Reason: Pain MILD(1-3)/Fever >100.5/HOLMAN Albuterol (Albuterol 2.5 Mg/3 Ml Nebu) 2.5 mg IH Q4HRT PRN PRN Reason: Shortness Of Breath Albuterol (Albuterol 2.5 Mg/3 Ml Nebu) 2.5 mg IH QIDRT [facility] Last Admin: 12/24/21 09:51 Dose: 2.5 mg Aspirin (Aspirin 300 Mg Rect Supp) 300 mg MO QDAY [facility] Last Admin: 12/24/21 09:39 Dose: 300 mg Dextrose (Dextrose 50% In Water (25gm) 50 Ml Syringe) 50 ml IV Q30MIN PRN; Protocol PRN Reason: Hypoglycemia Famotidine (Famotidine 20 Mg/2 Ml Inj) 20 mg IV BID [facility] Last Admin: 12/24/21 09:39 Dose: 20 mg Levetiracetam 500 mg/ Dextrose 105 mls @ 400 mls/hr IV Q12HR [facility] Last Admin: 12/24/21 09:39 Dose: 400 mls/hr Insulin Human Lispro (Insulin Lispro 100 Unit/Ml) 0 unit SUB-Q Q6HR [facility]; Protocol Last Admin: 12/24/21 09:36 Dose: Not Given Ondansetron HCl (Ondansetron 4 Mg/2 Ml Inj) 4 mg IV Q8H PRN PRN Reason: Nausea And Vomiting Sodium Chloride (Sodium Chloride 0.9% 10 Ml Flush Syringe) 10 ml IV BID [facility] Last Admin: 12/24/21 09:39 Dose: 10 ml Sodium Chloride (Sodium Chloride 0.9% 10 Ml Flush Syringe) 10 ml IV PRN PRN PRN Reason: LINE FLUSH Last Admin: 12/18/21 02:51 Dose: 10 ml Physical Examination Vital signs: Vital Signs Pulse Resp BP Pulse Ox 115 H 20 100/60 98 12/17/21 18:13 12/17/21 18:13 12/17/21 18:13 12/17/21 18:13 Results - Laboratory Findings CBC and BMP: 12/23/21 06:36 12/24/21 04:26 Abnormal lab findings: Abnormal Labs 12/17/21 12/17/21 12/17/21 18:55 18:55 18:55 WBC Hgb MCV 72 L MCH 24 L RDW 16.6 H Lymph % (Auto) 9.1 L [place] % (Auto) 12.0 H Lymph # (Auto) 0.9 L [place] # (Auto) 1.2 H Seg Neutrophils % 78.4 H Seg Neutrophils # VBG pH 7.309 L Sodium Potassium BUN 37 H Creatinine 1.6 H Glucose 113 H POC Glucose Calcium 8.2 L Total Protein 6.2 L Albumin 3.4 L Lipase 7 L 12/18/21 12/18/21 12/18/21 02:34 05:37 08:51 WBC 11.1 H Hgb MCV 72 L MCH 23 L RDW 16.4 H Lymph % (Auto) 6.8 L [place] % (Auto) 12.3 H Lymph # (Auto) 0.8 L [place] # (Auto) 1.4 H Seg Neutrophils % 80.5 H Seg Neutrophils # 8.9 H VBG pH Sodium Potassium BUN Creatinine Glucose POC Glucose 131 H 124 H Calcium Total Protein Albumin Lipase 12/18/21 12/18/21 12/18/21 08:51 11:18 21:43 WBC Hgb MCV MCH RDW Lymph % (Auto) [place] % (Auto) Lymph # (Auto) [place] # (Auto) Seg Neutrophils % Seg Neutrophils # VBG pH Sodium Potassium BUN 42 H Creatinine 1.5 H Glucose 101 H POC Glucose 106 H 112 H Calcium 8.0 L Total Protein Albumin Lipase 12/19/21 12/19/21 12/20/21 06:02 23:43 06:34 WBC Hgb MCV MCH RDW Lymph % (Auto) [place] % (Auto) Lymph # (Auto) [place] # (Auto) Seg Neutrophils % Seg Neutrophils # VBG pH Sodium 146 H Potassium 3.5 L BUN 40 H Creatinine Glucose 121 H POC Glucose 153 H 156 H Calcium 7.6 L Total Protein Albumin Lipase 12/20/21 12/20/21 12/20/21 07:08 07:08 11:17 WBC 13.4 H Hgb 9.7 L MCV 72 L MCH 22 L RDW 16.4 H Lymph % (Auto) 7.4 L [place] % (Auto) 10.1 H Lymph # (Auto) 1.0 L [place] # (Auto) 1.4 H Seg Neutrophils % 81.9 H Seg Neutrophils # 11.0 H VBG pH Sodium Potassium 3.5 L BUN 24 H Creatinine 0.4 L Glucose 142 H POC Glucose 166 H Calcium 7.9 L Total Protein Albumin Lipase 12/20/21 12/21/21 12/21/21 23:43 05:42 06:41 WBC Hgb MCV 72 L MCH 23 L RDW 16.1 H Lymph % (Auto) 10.9 L [place] % (Auto) 14.0 H Lymph # (Auto) 1.1 L [place] # (Auto) 1.5 H Seg Neutrophils % 74.0 H Seg Neutrophils # VBG pH Sodium Potassium BUN Creatinine Glucose POC Glucose 142 H 130 H Calcium Total Protein Albumin Lipase 12/21/21 12/21/21 12/22/21 06:41 23:18 05:11 WBC Hgb 9.9 L MCV 73 L MCH 23 L RDW 16.3 H Lymph % (Auto) [place] % (Auto) 13.7 H Lymph # (Auto) 1.1 L [place] # (Auto) 1.1 H Seg Neutrophils % 70.2 H Seg Neutrophils # VBG pH Sodium Potassium 3.3 L BUN Creatinine 0.3 L Glucose 137 H POC Glucose 124 H Calcium 7.9 L Total Protein Albumin Lipase 12/22/21 12/22/21 12/23/21 05:11 05:43 06:36 WBC Hgb MCV 71 L MCH 23 L RDW 15.9 H Lymph % (Auto) [place] % (Auto) 11.4 H Lymph # (Auto) [place] # (Auto) 1.2 H Seg Neutrophils % 71.0 H Seg Neutrophils # VBG pH Sodium Potassium 3.3 L BUN Creatinine 0.3 L Glucose 168 H POC Glucose 123 H Calcium 7.6 L Total Protein Albumin Lipase 12/23/21 12/23/21 12/24/21 06:36 21:33 04:26 WBC Hgb MCV MCH RDW Lymph % (Auto) [place] % (Auto) Lymph # (Auto) [place] # (Auto) Seg Neutrophils % Seg Neutrophils # VBG pH Sodium 146 H Potassium BUN Creatinine 0.3 L 0.4 L Glucose POC Glucose 137 H Calcium 7.9 L 8.0 L Total Protein 5.4 L Albumin 3.1 L Lipase
[2021-12-24] MEDS ORDERED: LIP THERAPY VASELINE TP PRN (12:57)
[2021-12-24] MEDS ORDERED: MINERAL OIL/PETROLATUM, WHITE OPHTH OINT 3.5 GM OU PRN (12:57)
[2021-12-24] MEDS ORDERED: fentaNYL DRIP Premix 1,000 MCG/100 ML BAG IV SCH (13:00)
--- NOTE | 2021-12-24 13:07 | XRay Report ---
XR chest 1V ap INDICATION / CLINICAL INFORMATION: RT IJ placement,ETT placement. COMPARISON: 10/08/2012 FINDINGS: SUPPORT DEVICES: Right IJ central venous catheter projects over the cavoatrial junction. Endotracheal tube terminates 2.4 cm above the monika. HEART /PULMONARY VASCULATURE: Cardiac silhouette is accentuated with perihilar vasculature congestion . LUNGS / PLEURA: Diminished lung volumes with bronchovascular crowding. No focal airspace consolidatio n. No sizable pleural effusion. No pneumothorax. IMPRESSION: 1. Accentuated perihilar opacities, may reflect pulmonary vasculature congestion. Unable to exclude p neumonia. 2. Satisfactory position of support devices. Signer Name: Tyson Browne MD Signed: 12/24/2021 1:03 PM Workstation Name: [email or web address] [employer]
--- NOTE | 2021-12-24 13:47 | Consultation ---
DATE OF CONSULTATION: 12/24/2021 PULMONARY CRITICAL CARE CONSULT NOTE REASON FOR CONSULTATION: Acute hypoxemic respiratory failure, on mechanical ventilatory support, acute on chronic encephalopathy, toxic metabolic. CONSULTING PHYSICIAN: Dr. Crespo. REASON FOR CONSULT: As above. CHIEF COMPLAINT AND HISTORY OF PRESENT ILLNESS: The patient is a now 51-year-old -[place] obese female, intermediate resident. Past medical history as far as I can tell, amongst other things significant for prior cerebrovascular accident that left her with hemiplegia and was a intermediate resident, came to the Emergency Room on the about a week ago because of abdominal pain. The patient apparently was communicative as the best way to describe it. At that time, the notes mentioned that she complained of intermittent cramping abdominal pain. She developed a bout of intractable nausea and vomiting a day before coming to the Emergency Room. She mentioned that she had not had a bowel movement in 2 months according to the note. In the Emergency Room, a CT of the abdomen and pelvis suggested a small-bowel obstruction and a general surgery consult was placed. NG tube was placed to suction and it appears that conservative management was decided upon. During the admission, the family mentioned that her mental status appears to be a little bit worse than prior baseline and hence a Neurology consult was placed. A CT scan was done. According to the Neurology assessment, it showed a new CVA. MRI of the brain was recommended while management continued for the bowel obstruction. She had a bowel movement. Plans were to begin to clamp the NG tube. She went down for MRI today. While in the MRI suite, it seems that she became more altered. She had received, I am told, a little bit of sedation to take the procedure. When they wheeled her out, they tried to arouse her, could not do that. They noted a leftward deviation to her gaze and a rapid response was called. Ultimately, she was found not to be able to protect her airway, she was intubated and brought up to the Intensive Care Unit where I stopped by to see her. When I stopped by to see her, she was resting in bed. She had been placed empirically on the assist control mode of ventilation, PRVC, AC, tidal volume 450, rate of 16 and a PEEP of 6 and I believe 40% FiO2. I do not have any history of any new trauma while in the Hospital or falls. I do not have any history of vomiting or overt aspiration today or since admission. With regards to the patient's tobacco use/abuse history, she is not a current smoker, remote history is unknown. That really is as much of the history of presentation as I have. PAST MEDICAL HISTORY: Again, diabetes, heart failure, hypertension, renal failure, history of seizures, history of prior cerebrovascular accident, history of anxiety. She is obese. PAST SURGICAL HISTORY: Unknown. MEDICATIONS: She was on at the time I stopped by to see her, according to the medication administration record included the following: Tylenol 650 mg p.o. q. 4 hours p.r.n. mild pain or fevers, albuterol 2.5 mg nebulized q. 4 hours p.r.n. shortness of breath as well as scheduled 2.5 mg q.i.d., aspirin 300 mg per rectum daily, Pepcid 20 mg IV b.i.d., insulin via sliding scale, Keppra 500 mg IV q. 12 hours, Zofran 4 mg IV q. 8 hours p.r.n. nausea and vomiting. She had received Ativan 1 mg dose I believe for the MRI procedure. ALLERGIES: PLAVIX, LISINOPRIL, AND METFORMIN. NATURE OF THIS ALLERGY IS UNKNOWN. DIET: Obese lady, acute weight loss or gain history is unknown. FAMILY AND SOCIAL HISTORY: Apparently lived in a intermediate. No current alcohol, tobacco or illicit drug use or abuse. Remote history is unknown. Family history is otherwise unobtainable. REVIEW OF SYSTEMS: Unobtainable secondary to the patient's medical and mental condition. Since she has been here, no gross hematochezia or melena, no gross hematuria, no hematemesis, no witnessed seizures, no hemoptysis. Review of systems is otherwise unobtainable or as in the body of the history above. PHYSICAL EXAMINATION: VITAL SIGNS: At presentation in the Emergency Room and really since she has been afebrile, presentation temperature was 98.3 degrees Fahrenheit, pulse was 115, respiratory rate 20, blood pressure 100/60, O2 sats were 98%, inspired oxygen concentration at that time was not recorded. GENERAL: She is a middle-aged obese lady. Normocephalic, atraumatic, on the mechanical ventilator with mildly increased respiratory effort at rest. She does have some spontaneous respiratory effort. HEAD, EYES, EARS, NOSE AND THROAT: Anicteric. No conjunctival erythema. Oropharynx was moist. There was ET tube in place, taped around 24 cm at the lips. No gross jugular venous distention, no thyromegaly. She did have a leftward gaze to her eyes. LUNGS: Auscultation of both lung olivares revealed bilateral rales, no active wheezing. LYMPHATIC: Grossly, there were no palpable lymph nodes in the supraclavicular or submandibular lymph node chains. HEART: Sounds 1 and 2 are heard, regular rate and rhythm at the time of my evaluation without overt rubs or murmurs. ABDOMEN: Soft, full, protuberant. Bowel sounds are positive, nontender, no palpable hepatosplenomegaly. EXTREMITIES: Without overt digital clubbing or cyanosis. No pedal edema. The right lower extremity, the right leg was a little bit bigger than the left leg, however, no pedal edema. NEUROLOGIC: Pupils were equal, round, about 4 mm, reactive to light. In the MRI suite, she had a pure leftward gaze; however, in the room now, she is beginning to move her pupils, both her eyes. She is following commands, mostly with left hand, attempting to show me 2 fingers to commands. I cannot get her to move her feet or move the right upper extremity. She did open and close her eyes to command. SKIN: Normal turgor in the areas I examined without overt cellulitis or rash. She had a dressing over the sacral area, a protective dressing, a small abrasion appeared to be in that region. Please see the wound care nurses' notes for full description of her skin. PSYCHIATRIC: Mood and affect were flat. It appears that she has a little bit of some judgment and insight to follow commands. LABORATORY DATA: From my review are as follows: Admission white cell count 9700, hemoglobin 11.7, hematocrit 35.4, platelet count was 317. No manual differential. Venous blood gas showed a pH of 7.31 at presentation. Serum sodium 141, potassium 3.6, chloride 99, bicarb 24, BUN 37, creatinine 1.6, glucose was 113. Liver function tests essentially within normal limits. At that time, her albumin was low at 3.4. Urinalysis showed small leukocyte esterase, less than 1 white cell per high power field and about 4+ bacteria. Her white count is now within normal limits. Her sodium is up at 146, up slightly. BUN and creatinine are now within normal limits. Blood cultures were never drawn. Urine cultures were not sent. MRI done just now, shows an acute and early subacute ischemic changes seen in the right anterior communicating artery territory. Post-intubation chest x-ray shows ET tube tip in good position. The film appears to be rotated slightly. Right internal jugular line terminates in the distal SVC/right atrial junction. There appears to be hilar prominence in this particular view and small lung volumes. See if there is another x-ray from this admission. Really did not see an x-ray from earlier this admission. CT of the abdomen and pelvis, lung windows shows patchy areas of atelectasis in the bases/mild infiltration, perhaps some bronchiectatic changes and a small pericardial effusion was mentioned on the report. ASSESSMENT: * Acute on chronic toxic metabolic encephalopathy. * Acute hypoxemic respiratory failure, now on mechanical ventilatory support. * Acute cerebrovascular accident, on chronic. * Small-bowel obstruction at presentation. * Diabetes type 2. * History of congestive heart failure. * Hypertension. * History of seizures. * Acute abdominal pain, improved. * Obesity. * History of anxiety. PLAN: I am going to keep her on full mechanical ventilatory support overnight. I might do a little bit of pressure support trials during the day. She is beginning to follow commands and it might just have been the Ativan that tipped her over and caused her to have the respiratory distress and worsening altered mental status. The plan will be to see if I can get a spontaneous breathing trial past in the morning and give a trial of extubation. Ventilator-associated pneumonia bundle has been introduced. In the meantime, she might have aspirated during this process just based on the clinical exam. Oxygen will be weaned to keep sats greater than or equal to 90%. We will continue bronchodilators. I will hold on empiric antibiotic therapy. I will defer to the surgeon for continued management of the abdominal issues. Enteral nutrition will be the feeding modality of choice if okay with the general surgeon. Neurology evaluation is ongoing. I see that the feeding tube had been pulled. I will go ahead and reorder a feeding tube and start some enteral nutrition. Routine pulmonary hygiene, bronchodilators will be per the respiratory therapist. Glycemic control will be for target blood glucose of 140-180 mg/dL while critically ill. She is appropriately on GI prophylaxis, DVT prophylaxis is with SCDs. There is a reported history of intracranial bleed. I will try and get better information on that history and make a decision on beginning some low-dose heparinoid for DVT prophylaxis. Flu and pneumonia vaccination will be addressed per protocol. Thank you very much for the consult. We will follow along with further recommendations as picture progresses/becomes clearer. She is critically ill on life-sustaining interventions including mechanical ventilatory support, at very high risk of from cardiopulmonary system decompensation. At this time, I spent about 35-40 minutes of critical care time without overlap and excluding any procedural time that may be necessary. TID: [id number] RECEIPT: [id number] LARON/JAROD
[2021-12-24 14:32] LABS: ABG Base Excess 3.9 mmol/L (-2.0-3.0); ABG HCO3 26.5 mmol/L (20.0-26.0); ABG Methemoglobin 0.5 % (0.0-1.5); ABG Oxygen Saturation 99.2 % (95.0-99.0); ABG PCO2 32.3 mm Hg; ABG PH 7.532 pH Units (7.350-7.450); ABG PO2 173.4 mm Hg (80.0-90.0)
--- NOTE | 2021-12-24 14:47 | Progress Note ---
Assessment and Plan Assessment and plan: 51-year-old female with history of multiple strokes starting 10 years ago with chronic dense right hemiplegia and bedridden living in a group home, diabetes, CHF, hypertension, seizure was brought to the emergency room because of constipation since in to 2 and abdominal pain. Patient states she has had intermittent cramping abdominal pain for the past 4 days. Patient admits to intractable nausea vomiting since yesterday. Patient describes the pain as cramping and intermittent in nature. Patient states she has not had a bowel movement since 11/26/2021.. The patient is a resident at [facility] and a KUB performed at that facility today that was read as "probable partial small bowel obstruction. CT recommended." In the emergency room initial CT scan of the abdomen shows evidence of a small bowel obstruction without other acute finding. The case was discussed with on-c all surgeon Dr. Jamison and patient admitted #Acute ischemic right frontal CVA in [place] territory with mass-effect and encephalopathy Family reports multiple CVAs starting 10 years ago with a dense right hemiplegia and bedridden. Patient's sister (MPOA) endorsed concern for decreased interaction of patient. Sister states patient is more verbal and interactive but with very low speech output. Head CT noncontrast (12/21/2021) revealing "acute to subacute appearing infarction in the right [place] territory; remote right occipital lobe infarction; severe sequela from chronic microvascular disease." Neurology consulted; pending recs. Ordered rectal aspirin and currently holding atorvastatin 40 mg daily as the patient is NPO. Continue to monitor 12/24/2021: Patient was given Ativan 1 mg IV for MRI this morning, patient became very somnolent with a lateral gaze to left after Ativan and radiology technicians called code rapid response. records technician reported brain bleed on MRI and Dr Landis who responded to code emergently intubated the patient to protect her airways and transferred to ICU. However, radiologist reported stable right frontal lobe infarct without hemorrhage or mass-effect. Multiple old infarcts noted. No seizure activity reported. CT of head and neck ordered to complete stroke work-up. Neurology consulted. Anticipating early extubation. Discussed the case with the compound filler and patient's sister. #Small bowel obstruction with constipation since 11/26/[address] abdomen and pelvis without acute findings at the time of admi ssion Placed on n.p.o. status with NG tube + LIWS and serial KUBs. General surgery consulted; appreciate recs. Clamping of NG tube and monitoring for residuals; if >150 cc, patient will be returned back to low intermittent wall suction. Follow-up CT abdomen and pelvis showed resolution of SBO. Patient is having BMs and NG tube clamped for 2 days followed by removal on 12/23 as per general s urgery. As per nursing, patient unable to swallow after NG tube removal on 12/23, made n.p.o. and requested ST evaluation. Dysphagia may be related to acute CVA. #Non-insulin dependent type II diabetes mellitus - hemoglobin A1c: Unknown - home regimen: Unknown - current regimen: Moderate SSI - blood glucose goal 140-180 while inpatient - continue to monitor #Hypertension #Congestive heart failurestable - home medications: Unknown - current medications: Currently normotensive. Can consider IV Lopressor if patient requires blood pressure control while remaining n.p.o. - SBP goal <160 and DBP goal <90 while inpatient - continue to monitor #Seizure history Continue seizure precautions. No current seizure medication in the chart. Continue IV Keppra 500 mg twice daily #Mild protein caloric malnutrition Albumin 3.4 Holding on starting dietary supplementation until patient can tolerate p.o. intake. #Obesity #Weight loss counseling #Exercise counseling - BMI 30.6 - Counseled patient on the importance of weight loss, incorporating exercise, and dietary changes (lean meats, fresh fruits and vegetables, and water intake). Patient expresses understanding. - Time: +15 min #Advanced care planning Discussed with patient's sister and updated. Discussed with the nursing staff. History Interval history: Patient was given Ativan 1 mg IV for MRI this morning, patient became very somno lent with a lateral gaze to left after Ativan and radiology technicians called code rapid response. Radiology technicians reported brain bleed on MRI and Dr Landis who responded to code emergently intubated the patient to protect her airways and transferred to ICU. However, radiology reported stable right frontal lobe infarct without hemorrhage or mass-effect. No seizure activity reported. Hospitalist Physical - Constitutional Vitals: Temp Pulse Resp BP Pulse Ox 98.0 F 116 H 23 121/79 100 12/24/21 04:47 12/24/21 12:30 12/24/21 09:53 12/24/21 12:30 12/24/21 12:30 General appearance: Present: obese, other (Currently sedated/intubated and on ventilator) - EENT ENT: other (Endotracheal tube in place) - Neck Neck: Present: supple - Respiratory Respiratory effort: other (On ventilator) Respiratory: bilateral: CTA - Cardiovascular Rhythm: regular - Extremities Extremity abnormal: edema (Puffiness in extremities noted) - Abdominal General gastrointestinal: soft, non-tender, non-distended, normal bowel sounds - Integumentary Integumentary: Absent: rash - Neurologic Neurologic: other (Currently sedated on ventilator, known chronic dense right hemiparesis, pupils equal and reactive, conjugate deviation of eyes to left, mild facial droop, motor exam deferred as patient is sedated/intubated.) Results - Labs CBC & Chem 7: 12/23/21 06:36 12/24/21 04:26 Labs: Laboratory Last Values WBC 10.1 K/mm3 (4.5-11.0) 12/23/21 06:36 RBC 4.73 M/mm3 (3.65-5.03) 12/23/21 06:36 Hgb 11.0 gm/dl (10.1-14.3) 12/23/21 06:36 Hct 33.5 % (30.3-42.9) 12/23/21 06:36 MCV 71 fl (79-97) L 12/23/21 06:36 MCH 23 pg (28-32) L 12/23/21 06:36 MCHC 33 % (30-34) 12/23/21 06:36 RDW 15.9 % (13.2-15.2) H 12/23/21 06:36 Plt Count 282 K/mm3 (140-440) 12/23/21 06:36 Lymph % (Auto) 15.7 % (13.4-35.0) 12/23/21 06:36 [place] % (Auto) 11.4 % (0.0-7.3) H 12/23/21 06:36 Eos % (Auto) 1.7 % (0.0-4.3) 12/23/21 06:36 Baso % (Auto) 0.2 % (0.0-1.8) 12/23/21 06:36 Lymph # (Auto) 1.6 K/mm3 (1.2-5.4) 12/23/21 06:36 [place] # (Auto) 1.2 K/mm3 (0.0-0.8) H 12/23/21 06:36 Eos # (Auto) 0.2 K/mm3 (0.0-0.4) 12/23/21 06:36 Baso # (Auto) 0.0 K/mm3 (0.0-0.1) 12/23/21 06:36 Seg Neutrophils % 71.0 % (40.0-70.0) H 12/23/21 06:36 Seg Neutrophils # 7.2 K/mm3 (1.8-7.7) 12/23/21 06:36 ABG pH 7.532 pH Units (7.350-7.450) H 12/24/21 13:40 ABG pCO2 32.3 mm Hg 12/24/21 13:40 ABG pO2 173.4 mm Hg (80.0-90.0) H 12/24/21 13:40 ABG HCO3 26.5 mmol/L (20.0-26.0) H 12/24/21 13:40 ABG O2 Saturation 99.2 % (95.0-99.0) H 12/24/21 13:40 ABG O2 Content 13.4 (0.0-44) 12/24/21 13:40 ABG Base Excess 3.9 mmol/L (-2.0-3.0) H 12/24/21 13:40 ABG Hemoglobin 9.5 gm/dl (12.0-16.0) L 12/24/21 13:40 ABG Carboxyhemoglobin 1.1 % (0.0-5.0) 12/24/21 13:40 ABG Methemoglobin 0.5 % (0.0-1.5) 12/24/21 13:40 VBG pH 7.309 (7.320-7.420) L 12/17/21 18:55 Oxyhemoglobin 97.6 % (95.0-99.0) 12/24/21 13:40 FiO2 100 % 12/24/21 13:40 Sodium 146 mmol/L (137-145) H 12/24/21 04:26 Potassium 3.8 mmol/L (3.6-5.0) 12/24/21 04:26 Chloride 106.6 mmol/L (98-107) 12/24/21 04:26 Carbon Dioxide 28 mmol/L (22-30) 12/24/21 04:26 Anion Gap 15 mmol/L 12/24/21 04:26 BUN 9 mg/dL (7-17) 12/24/21 04:26 Creatinine 0.4 mg/dL (0.6-1.2) L 12/24/21 04:26 Estimated GFR > 60 ml/min 12/24/21 04:26 BUN/Creatinine Ratio 23 % 12/24/21 04:26 Glucose 98 mg/dL (65-100) 12/24/21 04:26 POC Glucose 97 mg/dL (70-105) 12/24/21 05:07 Calcium 8.0 mg/dL (8.4-10.2) L 12/24/21 04:26 Total Bilirubin 0.50 mg/dL (0.1-1.2) 12/24/21 04:26 AST 13 units/L (5-40) 12/24/21 04:26 ALT 8 units/L (7-56) 12/24/21 04:26 Alkaline Phosphatase 117 units/L (35-129) 12/24/21 04:26 Total Protein 5.4 g/dL (6.3-8.2) L 12/24/21 04:26 Albumin 3.1 g/dL (3.9-5) L 12/24/21 04:26 Albumin/Globulin Ratio 1.3 % 12/24/21 04:26 Lipase 7 units/L (13-60) L 12/17/21 18:55 Urine Color Yellow (Yellow) 12/17/21 22:12 Urine Turbidity Cloudy (Clear) 12/17/21 22:12 Specific [place] (Man) 1.030 (1.003-1.030) 12/17/21 22:12 Ur Protein (Man) 2+ mg/dL (Negative) 12/17/21 22:12 Ur Ketones (Man) Negative (Negative) 12/17/21 22:12 Ur Nitrite (Man) Negative (Negative) 12/17/21 22:12 Urine Bilirubin (Man) Negative (Negative) 12/17/21 22:12 Leukocyte Esterase (Man) Small (Negative) 12/17/21 22:12 Urine WBC (Auto) < 1.0 /HPF (0.0-6.0) 12/17/21 22:12 Urine RBC (Auto) 71.0 /HPF (0.0-6.0) 12/17/21 22:12 U Epithel Cells (Auto) 1.0 /HPF (0-13.0) 12/17/21 22:12 Urine Bacteria (Auto) 4+ /HPF (Negative) 12/17/21 22:12 Urine RBC (Manual) 3+ (Negative) 12/17/21 22:12 Urine WBC Clumps 3+ /HPF 12/17/21 22:12 Urine Mucus Few /HPF 12/17/21 22:12 Urine Yeast (Budding) 3+ /HPF 12/17/21 22:12 [place]/IV: Voiding Method Indwelling Catheter Active Medications - Current Medications Current Medications: Generic Name Dose Route Start Last Admin Trade Name Freq PRN Reason Stop Dose Admin Acetaminophen 650 mg 12/17/21 23:23 Acetaminophen 325 Mg Tab PO Q4H PRN Pain MILD(1-3)/Fever >100.5/HOLMAN Albuterol 2.5 mg 12/17/21 23:23 Albuterol 2.5 Mg/3 Ml Nebu IH Q4HRT PRN Shortness Of Breath Albuterol 2.5 mg 12/22/21 20:00 12/24/21 12:49 Albuterol 2.5 Mg/3 Ml Nebu IH Not Given QIDRT SHANNON Aspirin 300 mg 12/23/21 10:00 12/24/21 09:39 Aspirin 300 Mg Rect Supp MN 300 mg QDAY SHANNON Administration Dextrose 50 ml 12/17/21 23:24 Dextrose 50% In Water (25gm) 50 Ml Syringe IV Q30MIN PRN Hypoglycemia Protocol Famotidine 20 mg 12/18/21 10:00 12/24/21 09:39 Famotidine 20 Mg/2 Ml Inj IV 20 mg BID SHANNON Administration Hydrophilic Ointment 1 applic 12/24/21 12:57 Lip Therapy Vaseline TP Q2HR PRN Dry Lips Levetiracetam 500 mg/ Dextrose 105 mls @ 400 mls/hr 12/18/21 22:00 12/24/21 09:39 IV 400 mls/hr Q12HR SHANNON Administration Fentanyl Citrate 1,000 mcg in 100 mls @ 2.5 mls/hr 12/24/21 13:00 Fentanyl Drip Premix IV TITR [facility] Protocol 25 MCG/HR Insulin Human Lispro 0 unit 12/18/21 00:00 12/24/21 09:36 Insulin Lispro 100 Unit/Ml SUB-Q Not Given Q6HR [facility] Protocol Multi-Ingred Cream/Lotion/Oil/Oint 1 applic 12/24/21 12:57 Mineral Oil/Petrolatum, White Ophth Oint 3.5 Gm OU Q4HR PRN Dry Eye(s) Ondansetron HCl 4 mg 12/17/21 23:23 Ondansetron 4 Mg/2 Ml Inj IV Q8H PRN Nausea And Vomiting Senna/Docusate Sodium 1 tab 12/24/21 22:00 Sennosides/Docusate Sodium 8.6/50 Mg Tab FEEDTUBE BID SHANNON Sodium Chloride 10 ml 12/18/21 10:00 12/24/21 09:39 Sodium Chloride 0.9% 10 Ml Flush Syringe IV 10 ml BID SHANNON Administration Sodium Chloride 10 ml 12/17/21 23:23 12/18/21 02:51 Sodium Chloride 0.9% 10 Ml Flush Syringe IV 10 ml PRN PRN Administration LINE FLUSH Nutrition/Malnutrition Assess - Dietary Evaluation Nutrition/Malnutrition Findings: Nutrition Notes Start: 12/18/21 12:33 Freq: Status: Active Protocol: Document 12/23/21 16:43 CM (Rec: 12/23/21 16:54 CM [id number]) Co-Sign 12/23/21 16:43 WW Nutrition Notes Initial or Follow up Reassessment Current Diagnosis Diabetes,Hypertension,Heart Failure,Stroke Current Diet NPO Labs/Tests Reviewed Pertinent Medications Reviewed Height 5 ft 5 in Weight 86 kg [place] Body Weight (kg) 56.81 BMI 31.5 Weight Status Obese Subjective/Other Information RD follow-up per protocol. 0% PO intake since 12/18 per ADL notes. Daughter and sister verify no PO intake since 12/15 - 8 days. Nutrition-focused physical assessment performed indicating moderate muscle wasting - indicative of moderate malnutrition. Pt needs assistance during meals d/t CVA residuals - unable to feed herself. Abdominal pain noted per physical assessment. Previous ulcers healed on legs - no concern at this time. Burn Absent Trauma Absent GI Symptoms Other Food Allergy No Skin Integrity/Comment Redness/Dry (Efren 9) Current % PO Negligible Minimum of two criteria Yes Energy Intake (severe) < or equal to 50% Estimated Energy Requirement > or equal to 5 days Muscle Mass Moderate Depletion (severe) #1 Nutrition Diagnosis Malnutrition Etiology Abdominal pain As Evidenced by Signs and Symptoms NPO throughout LOS, 8 days <50 % energy/protein needs consumed and moderate muscle wasting (temples, acromion, clavicle). Is patient on ventilator? No Is Patient Ambulatory and/or Out of Bed No REE-([facility]-confined to bed) 1769.016 Calculation Used for Recommendations [facility] Additional Notes Protein: 1.2-1.5g/kg AdjBW; 86 -107g PRO q day Fluid: 1000-1500mL q day or per MD. Nutrition Intervention Change Diet Order: Pt diet to advance to cardiac/ consistent carbohydrate diet within 24 hours. Add Supplement/Snack (indicate name/kcal Glucerna BID (Chocolate) /protein ) Provides kCal: 440 Provides Protein (gm) 20 Goal #1 Pt diet to advance within next 24 hours Goal #2 Pt to maintain current wt status within 2.5% during LOS Follow-Up By: 12/25/21 Additional Comments Monitor diet advancement, weight status, and GI symptoms .
--- NOTE | 2021-12-24 18:09 | Procedure Note ---
Date of procedure: 12/24/21 Pre-op diagnosis: Acute respiratory failure Post-op diagnosis: same Procedure: Endotracheal intubation Timeout: Yes Sedative: Etomidate 20 mg, succinylcholine 50 mcg 90 scope: Fiberoptic video Size: 4 Endotracheal tube size: 8 Tube secured : 24 cm To placement confirmation: Visualized tube passing through the vocal cords: Equal breath sounds bilaterally, capnometry confirmation Complications: None Anesthesia: other Surgeon: SAMY HART Estimated blood loss: none Condition: critical Disposition: ICU
--- NOTE | 2021-12-24 18:10 | Procedure Note ---
Date of procedure: 12/24/21 Pre-op diagnosis: Acute respiratory failure Post-op diagnosis: same Procedure: Right internal jugular vein triple-lumen catheter under ultrasound guidance After informed consent was obtained a timeout was taken with the patient's nurse at bedside to verify the correct patient, the correct procedure, the correct operative site. Local anesthesia obtained with 1% lidocaine. The patient was prepped and draped in the usual sterile fashion. Ultrasound was utilized to localize the right internal jugular vein without difficulty. The Seldinger technique was utilized to access the right internal jugular vein with a seeker needle. A guidewire was then advanced via the seeker needle into the right internal jugular vein and the seeker needle removed. A scalpel was used to incise the skin at the insertion site. A dilator was then passed over the guide wire into the right internal jugular vein and subsequently removed over the guidewire. A preflush triple-lumen catheter was then advanced into the right internal jugular vein and the guidewire subsequently removed. All 3 ports flush and drawl with ease. 3-0 silk suture was utilized to suture the triple-lumen catheter in place. A Biopatch was placed at the insertion site. A sterile dressing was utilized to cover the triple-lumen catheter. Estimated blood loss minimal. Complications none. Specimens none. Postoperative chest x-ray revealed central lumen catheter in expected position without pneumothorax. Anesthesia: local Surgeon: SAMY HART Estimated blood loss: minimal Pathology: none Condition: critical Disposition: ICU
--- NOTE | 2021-12-24 18:12 | Event Note ---
Date: 12/24/21 A code met was called. I presented to patient bedside. The patient was found to be acute hypoxemic respiratory distress and was unable to protect her airway. Patient intubated and placed on ventilatory support. The high probability of a clinically significant, sudden or life threatening deterioration of the [cardiac, pulmonary, renal, neuro] system(s) required my full and direct attention, intervention and personal management. The aggregate critical care time was [90] minutes. This time is in addition to time spent performing reported procedures but includes the following: [x] Data Review and interpretation [x] Patient assessment and monitoring of vital signs [x] Documentation [x] Medication orders and management
[2021-12-24] MEDS ORDERED: SENNOSIDES/DOCUSATE SODIUM 8.6/50 MG TAB FEEDTUBE SCH (22:00)
[2021-12-25] MEDS: FAMOTIDINE 20 MG/2 ML INJ IV SCH ×2 (01:11→10:17)
[2021-12-25] MEDS: levETIRAcetam 500 MG in DEXTROSE 5% IN WATER 100 ML IV SCH ×2 (01:11→10:17)
[2021-12-25] MEDS: INSULIN LISPRO 100 UNIT/ML SUB-Q SCH ×4 (01:12→18:37)
[2021-12-25 05:05] LABS: Basophils % (Auto) 0.2 % (0.0-1.8); Eosinophils # (Auto) 0.1 K/mm3 (0.0-0.4); Eosinophils % (Auto) 0.9 % (0.0-4.3); Hematocrit 30.7 % (30.3-42.9); Hemoglobin 9.5 gm/dl (10.1-14.3); Lymphocytes # (Auto) 1.2 K/mm3 (1.2-5.4); Lymphocytes % (Auto) 11.1 % (13.4-35.0); Mean Corpuscular HGB Conc 31 % (30-34); Mean Corpuscular Volume 72 fl (79-97); Monocytes # (Auto) 0.8 K/mm3 (0.0-0.8); Monocytes % (Auto) 7.8 % (0.0-7.3); Platelet Count 267 K/mm3 (140-440); Red Blood Count 4.26 M/mm3 (3.65-5.03); Red Cell Distribution Width 16.2 % (13.2-15.2)
[2021-12-25 05:25] LABS: Alanine Aminotransferase 11 units/L (7-56); Albumin 2.7 g/dL (3.9-5); Blood Urea Nitrogen 10 mg/dL (7-17); Calcium 8.1 mg/dL (8.4-10.2); Hemolysis Index 6
[2021-12-25 05:28] LABS: BUN/Creatinine Ratio 25
[2021-12-25] MEDS: ALBUTEROL 2.5 MG/3 ML NEBU IH SCH ×4 (08:57→20:15)
[2021-12-25 09:48] LABS: ABG Base Excess 3.8 mmol/L (-2.0-3.0); ABG HCO3 27.7 mmol/L (20.0-26.0); ABG Methemoglobin 0.7 % (0.0-1.5); ABG Oxygen Saturation 99.3 % (95.0-99.0); ABG PCO2 39.3 mm Hg; ABG PH 7.467 pH Units (7.350-7.450)
--- NOTE | 2021-12-25 09:50 | XRay Report ---
CHEST 1 VIEW 12/25/2021 8:43 AM INDICATION / CLINICAL INFORMATION: follow up respiratory failure. COMPARISON: 12/24/2021 FINDINGS: SUPPORT DEVICES: Stable, satisfactory device positioning. HEART / MEDIASTINUM: No significant abnormality. LUNGS / PLEURA: Mild increased interstitial prominence and densities in the left lower lung adjacent left cardiac border No pneumothorax. Signer Name: Chandu Rodriguez MD Signed: 12/25/2021 9:46 AM Workstation Name: [facility]olver
[2021-12-25] MEDS: ASPIRIN 300 MG RECT SUPP PR SCH (10:17)
[2021-12-25] MEDS ORDERED: DEXTROSE 5% IN WATER 1,000 ML IV SCH (10:30)
--- NOTE | 2021-12-25 12:50 | Progress Note ---
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 Patient was a code met on 12/24 due worsen me ntal status s/p IV ativan during MRI and was intubated for airway protection. ICU Course to Date: 12/24: Patient was given Ativan 1 mg IV for MRI this morning, patient became very somnolent with a lateral gaze to left after Ativan and radiology technicians called code rapid response. commercial service technician reported brain bleed on MRI and Dr Landis who responded to code emergently intubated the patient to protect her airways and transferred to ICU. However, radiologist reported stable right frontal lobe infarct without hemorrhage or mass-effect. Multiple old infarcts noted. No seizure activity reported. CT of head and neck ordered to complete stroke work-up. Neurology consulted. Anticipating early extubation. Discussed the case with the architecture manager and patient's sister. 12/25: Stable on the vent, awake and appropriate, following simple commands. Failed PSV trial this am due to apnea, VSS. MRI brain reviewed, CTA head and Neck pending. Hypernatremic this am D5w X1L initiated, insert OGT for meds, enteral nutrition, and FWF. Family conference by the architecture manager and attending with the patient's sister and daughter, patient's diagnosis, current condition, prognosis, and plan of care were thoroughly discussed. All question and concerns were addressed at this time. Assessment and Plan #Acute Hypoxic Respiratory Failure - Intubate for airway protection during thee code met on 12/24 - Vent setting: PRVC-40%,8,12,450 - AM ABG noted - CCM consulted, appreciate recommendations - Failed PSV trial this am due to apnea - VAP bundle addressed - Aspiration precaution HOB above 30 - Daily SBT trials as tolerated - Daily ABG and CXR - Continue SPO2 monitoring for SPO2 goal above 92% #Acute Metabolic Encephalopathy #Acute ischemic right frontal CVA in [place] territory with mass-effect #Multiple CVAs starting 10 years ago with a dense right hemiplegia and bedridden. Patient's sister (MPOA) endorsed concern for decreased interaction of patient. Sister states patient is more verbal and interactive but with very low speech output. Head CT noncontrast (12/21/2021) revealing "acute to subacute appearing infarction in the right [place] territory; remote right occipital lobe infarction; severe sequela from chronic microvascular disease." Neurology consulted; pending recs. - Worsen mental status s/p IV ativan during MRI yesterday - Now intubated, not on any sedations - MRI reviewed, CTA head/neck pending - On ASA, resume statin Continue Neuro check per protocol - PT/OT/Speech ordered - Avoid benzodiazepine - PRN Analgesia for CPOT greater than 3 - Maintenance of sleep-wake cycle #Hypernatremia - probably due to dehydration, has been NPO - D5w initiated X1L - FWF Q4hrs once OGT is initiated - Monitor and replace electrolytes as needed #Small bowel obstruction with constipation since 11/26/[address] abdomen and pelvis without acute findings at the time of admission s/p NG tube + LIWS and serial KUBs. General surgery consulted; appreciate recs. Follow-up CT abdomen and pelvis showed resolution of SBO. Insert OGT and initiate enteral nutrition - Nutrition consulted #Non-insulin dependent type II diabetes mellitus - hemoglobin A1c: Unknown - home regimen: Unknown - current regimen: Moderate SSI - blood glucose goal 140-180 while inpatient - continue to monitor #Hypertension #Congestive heart failurestable - home medications: Unknown - current medications: Currently normotensive. - Can consider IV Lopressor if patient requires blood pressure control while remaining n.p.o. - SBP goal <160 and DBP goal <90 while inpatient - continue to monitor #Seizure history Continue seizure precautions. No current seizure medication in the chart. Continue IV Keppra 500 mg twice daily #Mild protein caloric malnutrition Albumin 3.4 Holding on starting dietary supplementation until patient can tolerate p.o. intake. #Obesity #Weight loss counseling #Exercise counseling - BMI 30.6 - Counseled patient on the importance of weight loss, incorporating exercise, and dietary changes (lean meats, fresh fruits and vegetables, and water intake). Patient expresses understanding. #GI/DVT Prophylaxis - PPI- Pepcid - SCDs to bilateral lower extremities while in bed #Advance Care Planning - Disease education data, care plan, diagnoses, and prognosis were thoroughly discussed with patient's sister and daughter at the bedside. Patient is a FULL code. They acknowledged understanding and agreed with current care plan. The high probability of a clinically significant, sudden or life threatening deterioration of the [multiple] system(s) required my full and direct attention, intervention and personal management. The aggregate critical care time was [60] minutes. This time is in addition to time spent performing reported procedures but includes the following: [x] Data Review and interpretation [x] Patient assessment and monitoring of vital signs [x] Documentation [x] Medication orders and management Disposition Plan: ICU Total Time Spent with Patient (Minutes): 60 History Interval history: Patient seen and examined at the bedside. While awake on the vent, not on any sedations following simple commands. RUE hemiplegia appreciated. Patient is SR on the monitor, VSS. MARTIN overnight Hospitalist Physical - Constitutional Vitals: Temp Pulse Resp BP Pulse Ox 98.9 F 114 H 12 136/94 100 12/25/21 03:24 12/25/21 12:00 12/25/21 08:59 12/25/21 12:00 12/25/21 12:00 General appearance: Present: no acute distress, well-nourished, obese, other (While awake on the vent) - EENT Eyes: Present: PERRL - Neck Neck: Present: normal ROM - Respiratory Respiratory effort: normal Respiratory: bilateral: diminished - Cardiovascular Rhythm: regular Heart Sounds: Present: S1 & S2 - Extremities Extremities: no ischemia, pulses intact, pulses symmetrical, abnormal (RUE hemiplegia) Extremity abnormal: edema - Peripheral Assessment Generalized Edema Type: Non-pitting Edema Degree: 2+ Capillary Refill: < 3 seconds Skin Temperature: Warm Peripheral Pulses: within normal limits - Abdominal General gastrointestinal: soft, non-distended, normal bowel sounds - Integumentary Integumentary: Present: clear, warm, dry - Psychiatric Psychiatric: appropriate mood/affect, cooperative, other (While awake on the vent) - Neurologic Neurologic: moves all extremities (Generalized weakness, RUE hemiplegia) - Allied Health Allied health notes reviewed: nursing, case management Results - Labs CBC & Chem 7: 12/25/21 04:47 12/25/21 04:47 Labs: Laboratory Last Values WBC 10.6 K/mm3 (4.5-11.0) 12/25/21 04:47 RBC 4.26 M/mm3 (3.65-5.03) 12/25/21 04:47 Hgb 9.5 gm/dl (10.1-14.3) L 12/25/21 04:47 Hct 30.7 % (30.3-42.9) 12/25/21 04:47 MCV 72 fl (79-97) L 12/25/21 04:47 MCH 22 pg (28-32) L 12/25/21 04:47 MCHC 31 % (30-34) 12/25/21 04:47 RDW 16.2 % (13.2-15.2) H 12/25/21 04:47 Plt Count 267 K/mm3 (140-440) 12/25/21 04:47 Lymph % (Auto) 11.1 % (13.4-35.0) L 12/25/21 04:47 Jack % (Auto) 7.8 % (0.0-7.3) H 12/25/21 04:47 Eos % (Auto) 0.9 % (0.0-4.3) 12/25/21 04:47 Baso % (Auto) 0.2 % (0.0-1.8) 12/25/21 04:47 Lymph # (Auto) 1.2 K/mm3 (1.2-5.4) 12/25/21 04:47 Jack # (Auto) 0.8 K/mm3 (0.0-0.8) 12/25/21 04:47 Eos # (Auto) 0.1 K/mm3 (0.0-0.4) 12/25/21 04:47 Baso # (Auto) 0.0 K/mm3 (0.0-0.1) 12/25/21 04:47 Seg Neutrophils % 80.0 % (40.0-70.0) H 12/25/21 04:47 Seg Neutrophils # 8.5 K/mm3 (1.8-7.7) H 12/25/21 04:47 ABG pH 7.467 pH Units (7.350-7.450) H 12/25/21 09:28 ABG pCO2 39.3 mm Hg 12/25/21 09:28 ABG pO2 215.0 mm Hg (80.0-90.0) H 12/25/21 09:28 ABG HCO3 27.7 mmol/L (20.0-26.0) H 12/25/21 09:28 ABG O2 Saturation 99.3 % (95.0-99.0) H 12/25/21 09:28 ABG O2 Content 14.4 (0.0-44) 12/25/21 09:28 ABG Base Excess 3.8 mmol/L (-2.0-3.0) H 12/25/21 09:28 ABG Hemoglobin 10.1 gm/dl (12.0-16.0) L 12/25/21 09:28 ABG Carboxyhemoglobin 1.1 % (0.0-5.0) 12/25/21 09:28 ABG Methemoglobin 0.7 % (0.0-1.5) 12/25/21 09:28 VBG pH 7.309 (7.320-7.420) L 12/17/21 18:55 Oxyhemoglobin 97.5 % (95.0-99.0) 12/25/21 09:28 FiO2 40 % 12/25/21 09:28 Sodium 147 mmol/L (137-145) H 12/25/21 04:47 Potassium 3.7 mmol/L (3.6-5.0) 12/25/21 04:47 Chloride 107.7 mmol/L (98-107) H 12/25/21 04:47 Carbon Dioxide 29 mmol/L (22-30) 12/25/21 04:47 Anion Gap 14 mmol/L 12/25/21 04:47 BUN 10 mg/dL (7-17) 12/25/21 04:47 Creatinine 0.4 mg/dL (0.6-1.2) L 12/25/21 04:47 Estimated GFR > 60 ml/min 12/25/21 04:47 BUN/Creatinine Ratio 25 % 12/25/21 04:47 Glucose 92 mg/dL (65-100) 12/25/21 04:47 POC Glucose 115 mg/dL (70-105) H 12/25/21 05:32 Calcium 8.1 mg/dL (8.4-10.2) L 12/25/21 04:47 Phosphorus 3.40 mg/dL (2.5-4.5) 12/25/21 04:47 Magnesium 1.80 mg/dL (1.7-2.3) 12/25/21 04:47 Total Bilirubin 0.60 mg/dL (0.1-1.2) 12/25/21 04:47 AST 17 units/L (5-40) 12/25/21 04:47 ALT 11 units/L (7-56) 12/25/21 04:47 Alkaline Phosphatase 107 units/L (35-129) 12/25/21 04:47 Total Protein 5.0 g/dL (6.3-8.2) L 12/25/21 04:47 Albumin 2.7 g/dL (3.9-5) L 12/25/21 04:47 Albumin/Globulin Ratio 1.2 % 12/25/21 04:47 Lipase 7 units/L (13-60) L 12/17/21 18:55 Urine Color Yellow (Yellow) 12/17/21 22:12 Urine Turbidity Cloudy (Clear) 12/17/21 22:12 Specific [place] (Man) 1.030 (1.003-1.030) 12/17/21 22:12 Ur Protein (Man) 2+ mg/dL (Negative) 12/17/21 22:12 Ur Ketones (Man) Negative (Negative) 12/17/21 22:12 Ur Nitrite (Man) Negative (Negative) 12/17/21 22:12 Urine Bilirubin (Man) Negative (Negative) 12/17/21 22:12 Leukocyte Esterase (Man) Small (Negative) 12/17/21 22:12 Urine WBC (Auto) < 1.0 /HPF (0.0-6.0) 12/17/21 22:12 Urine RBC (Auto) 71.0 /HPF (0.0-6.0) 12/17/21 22:12 U Epithel Cells (Auto) 1.0 /HPF (0-13.0) 12/17/21 22:12 Urine Bacteria (Auto) 4+ /HPF (Negative) 12/17/21 22:12 Urine RBC (Manual) 3+ (Negative) 12/17/21 22:12 Urine WBC Clumps 3+ /HPF 12/17/21 22:12 Urine Mucus Few /HPF 12/17/21 22:12 Urine Yeast (Budding) 3+ /HPF 12/17/21 22:12 [place]/IV: Voiding Method External Female Catheter Active Medications - Current Medications Current Medications: Generic Name Dose Route Start Last Admin Trade Name Freq PRN Reason Stop Dose Admin Acetaminophen 650 mg 12/17/21 23:23 Acetaminophen 325 Mg Tab PO Q4H PRN Pain MILD(1-3)/Fever >100.5/HOLMAN Albuterol 2.5 mg 12/17/21 23:23 Albuterol 2.5 Mg/3 Ml Nebu IH Q4HRT PRN Shortness Of Breath Albuterol 2.5 mg 12/22/21 20:00 12/25/21 12:21 Albuterol 2.5 Mg/3 Ml Nebu IH 2.5 mg QIDRT SHANNON Administration Aspirin 300 mg 12/23/21 10:00 12/25/21 10:17 Aspirin 300 Mg Rect Supp ME 300 mg QDAY SHANNON Administration Dextrose 50 ml 12/17/21 23:24 Dextrose 50% In Water (25gm) 50 Ml Syringe IV Q30MIN PRN Hypoglycemia Protocol Famotidine 20 mg 12/18/21 10:00 12/25/21 10:17 Famotidine 20 Mg/2 Ml Inj IV 20 mg BID SHANNON Administration Hydrophilic Ointment 1 applic 12/24/21 12:57 Lip Therapy Vaseline TP Q2HR PRN Dry Lips Levetiracetam 500 mg/ Dextrose 105 mls @ 400 mls/hr 12/18/21 22:00 12/25/21 1 0:17 IV 400 mls/hr Q12HR SHANNON Administration Fentanyl Citrate 1,000 mcg in 100 mls @ 2.5 mls/hr 12/24/21 13:00 Fentanyl Drip Premix IV TITR SHANNON Protocol 25 MCG/HR Dextrose 1,000 mls @ 75 mls/hr 12/25/21 10:30 D5w IV 12/25/21 23:49 DIRECT SHANNON Insulin Human Lispro 0 unit 12/18/21 00:00 12/25/21 06:52 Insulin Lispro 100 Unit/Ml SUB-Q Not Given Q6HR [facility] Protocol Multi-Ingred Cream/Lotion/Oil/Oint 1 applic 12/24/21 12:57 Mineral Oil/Petrolatum, White Ophth Oint 3.5 Gm OU Q4HR PRN Dry Eye(s) Ondansetron HCl 4 mg 12/17/21 23:23 Ondansetron 4 Mg/2 Ml Inj IV Q8H PRN Nausea And Vomiting Senna/Docusate Sodium 1 tab 12/24/21 22:00 12/25/21 10:18 Sennosides/Docusate Sodium 8.6/50 Mg Tab FEEDTUBE 1 tab BID SHANNON Administration Sodium Chloride 10 ml 12/18/21 10:00 12/25/21 10:17 Sodium Chloride 0.9% 10 Ml Flush Syringe IV 10 ml BID SHANNON Administration Sodium Chloride 10 ml 12/17/21 23:23 12/18/21 02:51 Sodium Chloride 0.9% 10 Ml Flush Syringe IV 10 ml PRN PRN Administration LINE FLUSH Nutrition/Malnutrition Assess - Dietary Evaluation Nutrition/Malnutrition Findings: Nutrition Notes Start: 12/18/21 12:33 Freq: Status: Active Protocol: Document 12/24/21 17:12 CM (Rec: 12/24/21 17:22 CM [id number]) Co-Sign 12/24/21 17:12 WW Nutrition Notes Need for Assessment generated from: MD Order Initial or Follow up Reassessment Current Diagnosis Diabetes,Heart Failure, Respiratory Failure,Stroke Current Diet NPO Labs/Tests Na 146 Pertinent Medications Reviewed Height 5 ft 5 in Weight 86 kg Paicines Body Weight (kg) 56.81 BMI 31.5 Weight Status Obese Subjective/Other Information RD consult per write/manage TF . Pt intubated in critical care unit at this time. Spoke with physician who confirmed pt is okay to initiate TF/NGT. Confirmed BS +. Abdomen soft, non-tender/ large. Discussed ordering Mg, Phos, K and monitor signs of refeeding. Tube feed recommendations below. Burn Absent Trauma Absent Food Allergy No Current % PO Other Minimum of two criteria Yes Energy Intake (severe) < or equal to 50% Estimated Energy Requirement > or equal to 5 days Muscle Mass Moderate Depletion (severe) #2 Nutrition Diagnosis Swallowing difficulty Etiology Mechanical ventilation As Evidenced by Signs and Symptoms Nutrition consult for write/ mange TF #1 Nutrition Diagnosis Malnutrition Diagnosis Progress(for reassessment Continues documentation) Is patient on ventilator? Yes Is Patient Ambulatory and/or Out of Bed No REE-([facility]-confined to bed) 1769.016 Kcal/Kg value to use for calculation 14 Approximate Energy Requirements Using 1204 kcal/Kg Calculation Used for Recommendations Kcal/kg Additional Notes Protein: 2g/kg IBW; 114g PRO q day. Fluid: 1000-1500mL q day or per team Nutrition Intervention Nutrition Support: Recommend initiating Vital HP @ 10mL/hr and increasing by 10mL q 10hr to goal rate of 50mL/hr x 24hrs. Flush with 35mL q 4hr. Kcal 1,200 Protein (gm) 105 Fluid (mL) 1,005 % RDI: 99%Kcal/92%Kcal Goal #1 Pt to intiate and tolerate enteral nutrition within 24hrs Goal #2 Pt to maintain current wt status within 2.5% during LOS Follow-Up By: 12/25/21 Additional Comments Monitor TF intitiation, weight status, GI symptoms, nutrition-related labs. <BLAKE CHANEY E - Last Filed: 12/27/21 07:20> Assessment and Plan Assessment and plan: I saw and evaluated the patient. I agree with the findings and the plan of care as documented in the Nurse Practitioner's~note, with the following corrections and additions. Hospitalist Physical - Constitutional Vitals: Temp Pulse Resp BP Pulse Ox 98.6 F 104 H 12 100/61 100 12/25/21 20:00 12/25/21 21:20 12/25/21 21:20 12/25/21 21:20 12/25/21 21:20 Results - Labs CBC & Chem 7: 12/25/21 04:47 12/25/21 04:47 Labs: Laboratory Last Values WBC 10.6 K/mm3 (4.5-11.0) 12/25/21 04:47 RBC 4.26 M/mm3 (3.65-5.03) 12/25/21 04:47 Hgb 9.5 gm/dl (10.1-14.3) L 12/25/21 04:47 Hct 30.7 % (30.3-42.9) 12/25/21 04:47 MCV 72 fl (79-97) L 12/25/21 04:47 MCH 22 pg (28-32) L 12/25/21 04:47 MCHC 31 % (30-34) 12/25/21 04:47 RDW 16.2 % (13.2-15.2) H 12/25/21 04:47 Plt Count 267 K/mm3 (140-440) 12/25/21 04:47 Lymph % (Auto) 11.1 % (13.4-35.0) L 12/25/21 04:47 Jack % (Auto) 7.8 % (0.0-7.3) H 12/25/21 04:47 Eos % (Auto) 0.9 % (0.0-4.3) 12/25/21 04:47 Baso % (Auto) 0.2 % (0.0-1.8) 12/25/21 04:47 Lymph # (Auto) 1.2 K/mm3 (1.2-5.4) 12/25/21 04:47 Jack # (Auto) 0.8 K/mm3 (0.0-0.8) 12/25/21 04:47 Eos # (Auto) 0.1 K/mm3 (0.0-0.4) 12/25/21 04:47 Baso # (Auto) 0.0 K/mm3 (0.0-0.1) 12/25/21 04:47 Seg Neutrophils % 80.0 % (40.0-70.0) H 12/25/21 04:47 Seg Neutrophils # 8.5 K/mm3 (1.8-7.7) H 12/25/21 04:47 ABG pH 7.467 pH Units (7.350-7.450) H 12/25/21 09:28 ABG pCO2 39.3 mm Hg 12/25/21 09:28 ABG pO2 215.0 mm Hg (80.0-90.0) H 12/25/21 09:28 ABG HCO3 27.7 mmol/L (20.0-26.0) H 12/25/21 09:28 ABG O2 Saturation 99.3 % (95.0-99.0) H 12/25/21 09:28 ABG O2 Content 14.4 (0.0-44) 12/25/21 09:28 ABG Base Excess 3.8 mmol/L (-2.0-3.0) H 12/25/21 09:28 ABG Hemoglobin 10.1 gm/dl (12.0-16.0) L 12/25/21 09:28 ABG Carboxyhemoglobin 1.1 % (0.0-5.0) 12/25/21 09:28 ABG Methemoglobin 0.7 % (0.0-1.5) 12/25/21 09:28 VBG pH 7.309 (7.320-7.420) L 12/17/21 18:55 Oxyhemoglobin 97.5 % (95.0-99.0) 12/25/21 09:28 FiO2 40 % 12/25/21 09:28 Sodium 147 mmol/L (137-145) H 12/25/21 04:47 Potassium 3.7 mmol/L (3.6-5.0) 12/25/21 04:47 Chloride 107.7 mmol/L (98-107) H 12/25/21 04:47 Carbon Dioxide 29 mmol/L (22-30) 12/25/21 04:47 Anion Gap 14 mmol/L 12/25/21 04:47 BUN 10 mg/dL (7-17) 12/25/21 04:47 Creatinine 0.4 mg/dL (0.6-1.2) L 12/25/21 04:47 Estimated GFR > 60 ml/min 12/25/21 04:47 BUN/Creatinine Ratio 25 % 12/25/21 04:47 Glucose 92 mg/dL (65-100) 12/25/21 04:47 POC Glucose 130 mg/dL (70-105) H 12/25/21 18:11 Calcium 8.1 mg/dL (8.4-10.2) L 12/25/21 04:47 Phosphorus 3.40 mg/dL (2.5-4.5) 12/25/21 04:47 Magnesium 1.80 mg/dL (1.7-2.3) 12/25/21 04:47 Total Bilirubin 0.60 mg/dL (0.1-1.2) 12/25/21 04:47 AST 17 units/L (5-40) 12/25/21 04:47 ALT 11 units/L (7-56) 12/25/21 04:47 Alkaline Phosphatase 107 units/L (35-129) 12/25/21 04:47 Total Protein 5.0 g/dL (6.3-8.2) L 12/25/21 04:47 Albumin 2.7 g/dL (3.9-5) L 12/25/21 04:47 Albumin/Globulin Ratio 1.2 % 12/25/21 04:47 Lipase 7 units/L (13-60) L 12/17/21 18:55 Urine Color Yellow (Yellow) 12/17/21 22:12 Urine Turbidity Cloudy (Clear) 12/17/21 22:12 Specific [place] (Man) 1.030 (1.003-1.030) 12/17/21 22:12 Ur Protein (Man) 2+ mg/dL (Negative) 12/17/21 22:12 Ur Ketones (Man) Negative (Negative) 12/17/21 22:12 Ur Nitrite (Man) Negative (Negative) 12/17/21 22:12 Urine Bilirubin (Man) Negative (Negative) 12/17/21 22:12 Leukocyte Esterase (Man) Small (Negative) 12/17/21 22:12 Urine WBC (Auto) < 1.0 /HPF (0.0-6.0) 12/17/21 22:12 Urine RBC (Auto) 71.0 /HPF (0.0-6.0) 12/17/21 22:12 U Epithel Cells (Auto) 1.0 /HPF (0-13.0) 12/17/21 22:12 Urine Bacteria (Auto) 4+ /HPF (Negative) 12/17/21 22:12 Urine RBC (Manual) 3+ (Negative) 12/17/21 22:12 Urine WBC Clumps 3+ /HPF 12/17/21 22:12 Urine Mucus Few /HPF 12/17/21 22:12 Urine Yeast (Budding) 3+ /HPF 12/17/21 22:12 [place]/IV: Voiding Method External Female Catheter Nutrition/Malnutrition Assess - Dietary Evaluation Nutrition/Malnutrition Findings: Nutrition Notes Start: 12/18/21 12:33 Freq: Status: Discharge Protocol: Document 12/25/21 16:34 [facility] (Rec: 12/25/21 16:37 [facility] [id number]) Nutrition Notes Initial or Follow up Brief Note Other Pertinent Diagnosis Abdominal pain, N/V Current Diet NPO Labs/Tests Phos 3.4 Mg 1.8 Na 147 Pertinent Medications Propofol at 2.58ml/hr ( provides 68 kcal), D5W at 75ml /hr x 1 bag Height 5 ft 5 in Weight 86 kg Paicines Body Weight (kg) 56.81 BMI 31.5 Weight Status Obese Subjective/Other Information No TF hanging at time of visit (15:12). Pt remains on vent support Burn Absent Trauma Absent Nutrition Intervention Follow-Up By: 12/28/21 Additional Comments F/U: vent status, TF start
--- NOTE | 2021-12-25 14:48 | Progress Note ---
Assessment and Plan Acute on chronic toxic metabolic encephalopathy Acute hypoxemic respiratory failure on MVS Acute CVA Small bowel obstruction Diabetes type II H/o CHF Hypertension History of seizures Acute abdominal pain Obesity Anxiety - begin Propofol drip for transfer to CT room but also for sedation - reduced set rate to 10/min re: alkalosis - care plan discussed at length with family including her sister who is POA - continue daily SAT and SBT assessment as tolerated - continue to wean supplemental oxygen for target O2 sat's > 90% acutely - VAP bundle addressed - continue lung protective strategies - continue bronchodilators with pulmonary hygiene per RT - wean per pulmonary driven protocols otherwise - continue accuchecks with glycemic control per SSI (While critically ill target blood glucose of 140-180 mg/dL; avoid hypoglycemia) - sedation prn for target RASS 0 to -1 - avoid nephrotoxins, renally dose all medications - continue to avoid benzodiazepine's, reduce the possibility of delirium - AB's per ID rec's - prn analgesia per CPOT score - Maintenance of sleep-wake cycle, avoid delirium - continue enteral nutritional support at goal rate as tolerated - G.I. & VTE prophylaxis - PT/OT/ROM exercises - continue mobility protocols for pressure ulcer prophylaxis - Monitor hemodynamics closely - continue other care per attending / other consultants - discharge planning ongoing concurrently .... Re-evaluate in am & prn CONDITION: CRITICAL PROGNOSIS: GUARDED CODE STATUS: FULL CODE The high probability of a clinically significant, sudden or life-threatening deterioration of the [respiratory, cardiovascular & neurologic] system(s) required my full and direct attention, intervention and personal management. The aggregate critical care time was [35] minutes without overlap. Time includes spent on; [x] Data Review and interpretation [x] Patient assessment and monitoring of vital signs [x] Documentation [x] Medication orders and management Subjective Date of service: 12/25/21 Principal diagnosis: AHRF; AMS; Acute CVA; SBO; DM II; CHF; HTN; Seizures; Abd pain; Obesity Interval history: Patient is seen today for: AHRF; AMS; Acute CVA; SBO; DM II; H/o CHF; HTN; Seizures; Acute abdominal pain; Obesity Seen and examined at bedside; 24hour events reviewed; nursing and respiratory care staff consulted; no adverse overnight events reported to me; resting peacefully in bed; remains on MVS; not tolerating SBT's due to prolonged apnea's; for CTA H&N today re: acute CVA; she responds by nodding and denied pain; tachycardia noted up to 130's Objective Vital Signs - 12hr 12/25/21 12/25/21 12/25/21 02:51 03:00 03:10 Temperature Pulse Rate 110 H 102 H 102 H Pulse Rate [ Anterior Bilateral Throughout] Pulse Rate [ From Monitor] Respiratory 12 12 12 Rate Respiratory Rate [Anterior Bilateral Throughout] Blood Pressure 131/80 124/83 124/83 O2 Sat by Pulse 100 100 100 Oximetry 12/25/21 12/25/21 12/25/21 03:21 03:24 03:30 Temperature 98.9 F Pulse Rate 89 91 H Pulse Rate [ Anterior Bilateral Throughout] Pulse Rate [ From Monitor] Respiratory 12 Rate Respiratory Rate [Anterior Bilateral Throughout] Blood Pressure 131/80 129/88 O2 Sat by Pulse 100 Oximetry 12/25/21 12/25/21 12/25/21 03:41 03:51 03:56 Temperature Pulse Rate 105 H 89 96 H Pulse Rate [ Anterior Bilateral Throughout] Pulse Rate [ From Monitor] Respiratory 12 Rate Respiratory Rate [Anterior Bilateral Throughout] Blood Pressure 124/83 124/83 129/88 O2 Sat by Pulse 100 100 100 Oximetry 12/25/21 12/25/21 12/25/21 04:00 04:11 04:21 Temperature Pulse Rate 78 70 89 Pulse Rate [ Anterior Bilateral Throughout] Pulse Rate [ 93 H From Monitor] Respiratory 12 12 12 Rate Respiratory Rate [Anterior Bilateral Throughout] Blood Pressure 118/68 129/88 129/88 O2 Sat by Pulse 100 100 100 Oximetry 12/25/21 12/25/21 12/25/21 04:30 04:41 04:51 Temperature Pulse Rate 87 98 H 105 H Pulse Rate [ Anterior Bilateral Throughout] Pulse Rate [ From Monitor] Respiratory 13 12 13 Rate Respiratory Rate [Anterior Bilateral Throughout] Blood Pressure 128/81 118/68 118/68 O2 Sat by Pulse 100 100 Oximetry 12/25/21 12/25/21 12/25/21 05:00 05:11 05:21 Temperature Pulse Rate 119 H 117 H 122 H Pulse Rate [ Anterior Bilateral Throughout] Pulse Rate [ From Monitor] Respiratory 12 12 Rate Respiratory Rate [Anterior Bilateral Throughout] Blood Pressure 126/91 128/81 128/81 O2 Sat by Pulse 100 100 Oximetry 0912/25/21 12/25/21 05:30 08:49 08:59 Temperature Pulse Rate 126 H 121 H Pulse Rate [ 119 H Anterior Bilateral Throughout] Pulse Rate [ From Monitor] Respiratory 12 Rate Respiratory 12 Rate [Anterior Bilateral Throughout] Blood Pressure 143/95 122/78 O2 Sat by Pulse 100 100 Oximetry 12/25/21 12/25/21 12/25/21 12:00 12:21 13:54 Temperature Pulse Rate 114 H 129 H Pulse Rate [ 122 H Anterior Bilateral Throughout] Pulse Rate [ From Monitor] Respiratory Rate Respiratory 12 Rate [Anterior Bilateral Throughout] Blood Pressure 136/94 142/101 O2 Sat by Pulse 100 100 Oximetry Constitutional: no acute distress, other (middle aged obese female with normal respiratory effort at rest) Eyes: non-icteric ENT: oropharynx moist, other (ETT 24 cm MARY ANNE) Neck: supple, no lymphadenopathy, no JVD, other (large circumference) Effort: normal Ascultation: Bilateral: clear, diminished breath sounds Percussion: Bilateral: not dull Cardiovascular: regular rate and rhythm Gastrointestinal: normoactive bowel sounds, soft, non-tender, non-distended (protuberant) Integumentary: normal Extremities: no cyanosis, no edema, pulses normal, no ischemia or petechiae Neurologic: pupils equal and round, unable to assess, other (right hemiplegia) Psychiatric: other (unable to assess re: AMS / flat affect) CBC and BMP: 12/25/21 04:47 12/25/21 04:47 ABG, PT/INR, D-dimer: ABG ABG pH 7.467 pH Units (7.350-7.450) H 12/25/21 09:28 ABG pCO2 39.3 mm Hg 12/25/21 09:28 ABG pO2 215.0 mm Hg (80.0-90.0) H 12/25/21 09:28 ABG O2 Saturation 99.3 % (95.0-99.0) H 12/25/21 09:28 Abnormal lab findings: Abnormal Labs 12/17/21 12/17/21 12/17/21 18:55 18:55 18:55 WBC Hgb MCV 72 L MCH 24 L RDW 16.6 H Lymph % (Auto) 9.1 L Bremer % (Auto) 12.0 H Lymph # (Auto) 0.9 L Bremer # (Auto) 1.2 H Seg Neutrophils % 78.4 H Seg Neutrophils # ABG pH ABG pO2 ABG HCO3 ABG O2 Saturation ABG Base Excess ABG Hemoglobin VBG pH 7.309 L Sodium Potassium Chloride BUN 37 H Creatinine 1.6 H Glucose 113 H POC Glucose Calcium 8.2 L Total Protein 6.2 L Albumin 3.4 L Lipase 7 L 12/18/21 12/18/21 12/18/21 02:34 05:37 08:51 WBC 11.1 H Hgb MCV 72 L MCH 23 L RDW 16.4 H Lymph % (Auto) 6.8 L Bremer % (Auto) 12.3 H Lymph # (Auto) 0.8 L Bremer # (Auto) 1.4 H Seg Neutrophils % 80.5 H Seg Neutrophils # 8.9 H ABG pH ABG pO2 ABG HCO3 ABG O2 Saturation ABG Base Excess ABG Hemoglobin VBG pH Sodium Potassium Chloride BUN Creatinine Glucose POC Glucose 131 H 124 H Calcium Total Protein Albumin Lipase 12/18/21 12/18/21 12/18/21 08:51 11:18 21:43 WBC Hgb MCV MCH RDW Lymph % (Auto) Bremer % (Auto) Lymph # (Auto) Bremer # (Auto) Seg Neutrophils % Seg Neutrophils # ABG pH ABG pO2 ABG HCO3 ABG O2 Saturation ABG Base Excess ABG Hemoglobin VBG pH Sodium Potassium Chloride BUN 42 H Creatinine 1.5 H Glucose 101 H POC Glucose 106 H 112 H Calcium 8.0 L Total Protein Albumin Lipase 12/19/21 12/19/21 12/20/21 06:02 23:43 06:34 WBC Hgb MCV MCH RDW Lymph % (Auto) Bremer % (Auto) Lymph # (Auto) Bremer # (Auto) Seg Neutrophils % Seg Neutrophils # ABG pH ABG pO2 ABG HCO3 ABG O2 Saturation ABG Base Excess ABG Hemoglobin VBG pH Sodium 146 H Potassium 3.5 L Chloride BUN 40 H Creatinine Glucose 121 H POC Glucose 153 H 156 H Calcium 7.6 L Total Protein Albumin Lipase 12/20/21 12/20/21 12/20/21 07:08 07:08 11:17 WBC 13.4 H Hgb 9.7 L MCV 72 L MCH 22 L RDW 16.4 H Lymph % (Auto) 7.4 L Bremer % (Auto) 10.1 H Lymph # (Auto) 1.0 L Bremer # (Auto) 1.4 H Seg Neutrophils % 81.9 H Seg Neutrophils # 11.0 H ABG pH ABG pO2 ABG HCO3 ABG O2 Saturation ABG Base Excess ABG Hemoglobin VBG pH Sodium Potassium 3.5 L Chloride BUN 24 H Creatinine 0.4 L Glucose 142 H POC Glucose 166 H Calcium 7.9 L Total Protein Albumin Lipase 12/20/21 12/21/21 12/21/21 23:43 05:42 06:41 WBC Hgb MCV 72 L MCH 23 L RDW 16.1 H Lymph % (Auto) 10.9 L Bremer % (Auto) 14.0 H Lymph # (Auto) 1.1 L Bremer # (Auto) 1.5 H Seg Neutrophils % 74.0 H Seg Neutrophils # ABG pH ABG pO2 ABG HCO3 ABG O2 Saturation ABG Base Excess ABG Hemoglobin VBG pH Sodium Potassium Chloride BUN Creatinine Glucose POC Glucose 142 H 130 H Calcium Total Protein Albumin Lipase 12/21/21 12/21/21 12/22/21 06:41 23:18 05:11 WBC Hgb 9.9 L MCV 73 L MCH 23 L RDW 16.3 H Lymph % (Auto) Bremer % (Auto) 13.7 H Lymph # (Auto) 1.1 L Bremer # (Auto) 1.1 H Seg Neutrophils % 70.2 H Seg Neutrophils # ABG pH ABG pO2 ABG HCO3 ABG O2 Saturation ABG Base Excess ABG Hemoglobin VBG pH Sodium Potassium 3.3 L Chloride BUN Creatinine 0.3 L Glucose 137 H POC Glucose 124 H Calcium 7.9 L Total Protein Albumin Lipase 12/22/21 12/22/21 12/23/21 05:11 05:43 06:36 WBC Hgb MCV 71 L MCH 23 L RDW 15.9 H Lymph % (Auto) Bremer % (Auto) 11.4 H Lymph # (Auto) Bremer # (Auto) 1.2 H Seg Neutrophils % 71.0 H Seg Neutrophils # ABG pH ABG pO2 ABG HCO3 ABG O2 Saturation ABG Base Excess ABG Hemoglobin VBG pH Sodium Potassium 3.3 L Chloride BUN Creatinine 0.3 L Glucose 168 H POC Glucose 123 H Calcium 7.6 L Total Protein Albumin Lipase 12/23/21 12/23/21 12/24/21 06:36 21:33 04:26 WBC Hgb MCV MCH RDW Lymph % (Auto) Bremer % (Auto) Lymph # (Auto) Bremer # (Auto) Seg Neutrophils % Seg Neutrophils # ABG pH ABG pO2 ABG HCO3 ABG O2 Saturation ABG Base Excess ABG Hemoglobin VBG pH Sodium 146 H Potassium Chloride BUN Creatinine 0.3 L 0.4 L Glucose POC Glucose 137 H Calcium 7.9 L 8.0 L Total Protein 5.4 L Albumin 3.1 L Lipase 12/24/21 12/25/21 12/25/21 13:40 04:47 04:47 WBC Hgb 9.5 L MCV 72 L MCH 22 L RDW 16.2 H Lymph % (Auto) 11.1 L Bremer % (Auto) 7.8 H Lymph # (Auto) Bremer # (Auto) Seg Neutrophils % 80.0 H Seg Neutrophils # 8.5 H ABG pH 7.532 H ABG pO2 173.4 H ABG HCO3 26.5 H ABG O2 Saturation 99.2 H ABG Base Excess 3.9 H ABG Hemoglobin 9.5 L VBG pH Sodium 147 H Potassium Chloride 107.7 H BUN Creatinine 0.4 L Glucose POC Glucose Calcium 8.1 L Total Protein 5.0 L Albumin 2.7 L Lipase 12/25/21 12/25/21 05:32 09:28 WBC Hgb MCV MCH RDW Lymph % (Auto) Bremer % (Auto) Lymph # (Auto) Bremer # (Auto) Seg Neutrophils % Seg Neutrophils # ABG pH 7.467 H ABG pO2 215.0 H ABG HCO3 27.7 H ABG O2 Saturation 99.3 H ABG Base Excess 3.8 H ABG Hemoglobin 10.1 L VBG pH Sodium Potassium Chloride BUN Creatinine Glucose POC Glucose 115 H Calcium Total Protein Albumin Lipase Chest x-ray: image reviewed (improved areation) Allied health notes reviewed: nursing
--- NOTE | 2021-12-25 15:31 | Cat Scan Report ---
CT angio neck INDICATION / CLINICAL INFORMATION: 51 years Female; Acute stroke. TECHNIQUE: Thin cut axial images obtained through the head during IV bolus contrast administration. S agittal, coronal, and 3 plane MIP reconstructions performed by the technologist. NASCET type criteria used evaluate stenoses. All CT scans at this location are performed using CT dose reduction for ALAR A by means of automated exposure control. COMPARISON: None available. FINDINGS: CAROTID ARTERIES: There is small focus of calcification along the posterior proximal left ICA. Howeve r, there is no significant stenosis of the cervical carotid arteries by NASCET criteria. VERTEBRAL ARTERIES: There is marked small caliber of the right cervical vertebral artery which may re flect component of developmental hypoplasia. However, this segment is not seen distal to the C1-2 lev el with occlusion. The left vertebral artery is clearly dominant. There is a small focus of calcifica tion at the origin though there is no significant focal stenosis. ARCH: There is mild calcification involving aortic arch. There is developmental aberrant right subcla vian artery. There is no significant narrowing of the arch vessels. ADDITIONAL FINDINGS: Remainder of the surrounding soft tissues are grossly normal. IMPRESSION: There is no significant stenosis involving cervical carotid arteries by NASCET criteria. 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 The left vertebral artery is clearly dominant. 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 Signer Name: Toño Duran MD Signed: 12/25/2021 3:27 PM Workstation Name: [id number]
--- NOTE | 2021-12-25 15:39 | Cat Scan Report ---
CT angio head INDICATION / CLINICAL INFORMATION: 51 years Female; Acute stroke. TECHNIQUE: Thin cut axial images obtained through the head during IV bolus contrast administration. S agittal, coronal, and 3 plane MIP reconstructions performed by the technologist. NASCET type criteria used evaluate stenoses. Automated exposure control utilized for radiation reduction purposes. COMPARISON: None available. FINDINGS: INTERNAL CAROTID ARTERIES: There is atherosclerotic calcification involving intracranial ICAs with mi ld narrowing of the cavernous and right clinoid segments by NASCET criteria. VERTEBROBASILAR SYSTEM: The intracranial right vertebral artery is not well visualized and appears to be occluded at. There is small component of retrograde flow. The left vertebral artery is clearly do minant. There is no significant focal stenosis involving the basilar artery. CEREBRAL ARTERIES: There is diffuse irregularity of the cerebral arteries which appears to be exacerb ated by the degree of motion. There is mild segmental narrowing of the left posterior as well as the bilateral middle cerebral arteries and adjacent segments which may reflect component of atherosclerot ic disease. On the earlier noncontrast CT head of 12/21/2021, there was more acute to subacute appearing edema rivka ng the medial right frontal lobe concerning for evolving infarct within the ROSEANNA distribution at. Doyle tionally at, there is associated occlusion of a branch of the right pericallosal artery in this regio n at. The edema results in mass effect with mild displacement of the adjacent vessels. There are old infarcts involving the right parietal and occipital lobes as well as bilaterally within the cerebellum. ANEURYSM: None identified. 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 There appears be occlusion of the distal right vertebral artery with component of retrograde flow. There is atherosclerotic calcification involving cranial ICAs with mild narrowing of the cavernous an d right clinoid segments. Is also mild diffuse irregularity of the intracranial vessels indicative of atherosclerotic disease. Signer Name: Toño Duran MD Signed: 12/25/2021 3:34 PM Workstation Name: [id number]
[2021-12-25 21:22] VITALS: BP 100/61
== END 2021-12-25 23:25 | DRG 871 ==
LOC: ED 18:06 → 3A 21:41 → CC1 12-24 12:58
PROVIDERS: ADMIT Hospitalist; ATTEND Internal Medicine
DX: A41.02 Sepsis due to Methicillin resistant Staphylococcus aureus (principal); G92.8 Other toxic encephalopathy; I63.521 Cerebral infarction due to unspecified occlusion or stenosis of right anterior cerebral artery; N17.0 Acute kidney failure with tubular necrosis; J69.0 Pneumonitis due to inhalation of food and vomit; J96.21 Acute and chronic respiratory failure with hypoxia; K56.609 Unspecified intestinal obstruction, unspecified as to partial versus complete obstruction; E44.1 Mild protein-calorie malnutrition; E87.0 Hyperosmolality and hypernatremia; E11.22 Type 2 diabetes mellitus with diabetic chronic kidney disease; N18.9 Chronic kidney disease, unspecified; I50.9 Heart failure, unspecified; F41.9 Anxiety disorder, unspecified; Z86.73 Personal history of transient ischemic attack (TIA), and cerebral infarction without residual deficits; G40.909 Epilepsy, unspecified, not intractable, without status epilepticus; Z68.30 Body mass index [BMI] 30.0-30.9, adult; Z71.82 Exercise counseling; Z20.822 Contact with and (suspected) exposure to COVID-19
CPT/HCPCS: 36415; 36600; 70450; 70496; 70498; 70551; 71045; 74018; 74176; 74177; 80048; 80053; 81001; 82803; 82805; 82962; 83690; 83735; 84100; 85025; 87070; 87205; 94002; 94003; 94640; 94760; 96374; 99285; G0378; J3490; J7060; Q9967; J0610; J1815; J1940; J1953; J2060; J2270; J2405; J2704; J3010; J3480; J7030; J7070